=== PATIENT | female | born 1935 | race Caucasian/White ===

== ENCOUNTER 2021-12-12 09:44 | Inpatient (IN) | payer MEDICARE, SELFPAY ==
[2021-12-12] VITALS (39 sets, daily range): BP systolic 115–172; BP diastolic 63–119; PULSE 59–79; RESP 0–27; TEMP 36.1–36.4; O2SAT 91–100; BMI 29.5
--- NOTE | ~2021-12-12 | CT_ITS ---
EXAMINATION: CT abdomen pelvis wo/w con DATE: 12/16/2021 08:38 INDICATION: Right hydronephrosis. TECHNIQUE: Computed tomography (CT) of the abdomen and pelvis was performed without and with intraven ous contrast using a total of 130 mL Omnipaque-350 intravenous contrast with a double-bolus technique for simultaneous opacification of the renal parenchyma and renal collecting system. Automated exposu re control and iterative reconstruction technique were employed. The dose-length product was 1431.83 mGy-cm. COMPARISON: Ultrasound kidneys 12/15/2021, CT urogram 07/30/2011 FINDINGS: The visualized portions of the lung bases demonstrate mild atelectasis. No pleural effusion. The hear t size is normal. No pericardial effusion. There is ectasia of ascending aorta measuring 4.0 cm. Ther e are cysts in the liver measuring up to 3.5 cm. The spleen, pancreas, and adrenal glands are normal. There is mild atrophy of right kidney. There is a 1.6 cm hemorrhagic cyst in right kidney. There is a 1.8 cm rim calcified cyst in right kidney. There is severe right hydronephrosis. There is a 10 mm s tone in proximal right ureter. Right ureter is not well opacified. There are cysts in left kidney jacqui suring up to 2.2 cm. Left ureter is well opacified and is normal. The bladder is normal. There is div erticulosis of the colon without evidence of diverticulitis. There are no dilated loops of bowel. The appendix is not visualized. There are no pathologically enlarged lymph nodes. There is no free intra peritoneal fluid. There is a right inguinal hernia containing fat. There is thickening in the endomet rial complex to 13 mm. There is severe lumbar spondylosis. There is a chronic compression fracture of L2. There is severe osteoarthritis of the hips. IMPRESSION: 1. 10 mm stone in proximal right ureter with severe right hydronephrosis. Mild right kidney atrophy. 2. Thickening of the endometrial complex to 13 mm. The differential diagnosis includes endometrial hy perplasia, polyp, and carcinoma. Biopsy is recommended. Reviewed, dictated and finalized at location A. [facility] IMPRESSION: 1. 10 mm stone in proximal right ureter with severe right hydronephrosis. Mild right kidney atrophy. 2. Thickening of the endometrial complex to 13 mm. The differential diagnosis i ncludes endometrial hyperplasia, polyp, and carcinoma. Biopsy is recommended.
--- NOTE | ~2021-12-12 | US_ITS ---
EXAMINATION: US renal BI DATE: 12/15/2021 10:49 INDICATION: Recurrent urinary tract infection. TECHNIQUE: Multiple ultrasound grayscale images of the kidneys were obtained. COMPARISON: CT abdomen and pelvis 07/30/2011 FINDINGS: The right kidney measures 8.6 x 4.3 x 3.6 cm. The left kidney measures 9.3 x 5.4 x 5.0 cm. The kidney s demonstrate normal parenchymal echogenicity. There is a 2.3 cm cyst in left kidney. There is severe right hydronephrosis. The bladder is normal. IMPRESSION: 1. Severe right hydronephrosis. Mild right kidney atrophy. Reviewed, dictated and finalized at location A. [employer]
--- NOTE | ~2021-12-12 | XR_ITS ---
EXAMINATION: XR chest 1V portable 12/12/2021 10:15 INDICATION: Generalized weakness PROCEDURE: AP portable chest COMPARISON: No prior studies for comparison. FINDINGS: There is left basilar atelectasis. Shallow inspiration with crowding of the pulmonary vesse ls. The cardiomediastinal silhouette is within normal limits. There are no pleural effusions. There is no pneumothorax suspected. IMPRESSION: 1: Left basilar atelectasis. Reviewed, dictated and finalized at location A.
--- NOTE | ~2021-12-12 | CT_ITS ---
EXAMINATION: CT brain wo con DATE: 12/12/2021 10:25 INDICATION: Headache. Weakness. Altered mental status. TECHNIQUE: Computed tomography (CT) of the head was performed without intravenous contrast. The dose- length product was 681.00 mGy-cm. Automated exposure control and iterative reconstruction technique w ere employed. COMPARISON: None FINDINGS: There is generalized atrophy. There are scattered mild periventricular and subcortical whit e matter changes, most likely related to small vessel ischemic disease (microangiopathy). There are c hronic left parietal, right temporal and bilateral cerebellar infarctions. There is a chronic left th alamic infarct. Paranasal sinuses and mastoids are pneumatized. No depressed skull fractures. Midline sagittal images are unremarkable. No acute infarction, hemorrhage, mass or mass effect. No ventricul omegaly or midline shift. IMPRESSION: 1. No acute intracranial abnormality. 2: Multiple chronic infarctions involving the left parietal lobe, right temporal lobe, left thalamus and the cerebellum bilaterally. 3: Chronic age-related findings. Reviewed, dictated and finalized at location A. IMPRESSION: 1. No acute intracranial abnormality. 2: Multiple chronic infarctions involving the left parietal lobe, right tempora l lobe, left thalamus and the cerebellum bilaterally. 3: Chronic age-related findings.
--- NOTE | 2021-12-12 09:56 | ECG_ITS ---
Measurements Intervals [place] Rate: 62 P: 90 NV: 188 QRS: -44 QRSD: 132 T: 12 QT: 472 QTc: 480 Interpretive Statements SINUS RHYTHM LEFT AXIS DEVIATION RIGHT BUNDLE BRANCH BLOCK VOLTAGE CRITERIA FOR LVH BASELINE ARTIFACT- I, II, AVR, V4 ABNORMAL ECG NO PREVIOUS ECG AVAILABLE FOR COMPARISON Electronically Signed On 12-12-2021 10:35:46 CDT by Mateo Miller D.O.
--- NOTE | 2021-12-12 10:07 | PC.NURSE ---
Radiology at bedside to complete chest xray
--- NOTE | 2021-12-12 10:15 | PC.NURSE ---
Patient off unit to CT.
[2021-12-12] MEDS: SODIUM CHLORIDE 0.9% IV 2,000 ML 999 ML IV CONT (10:29)
--- NOTE | 2021-12-12 10:31 | ED.GENADULT ---
HPI - General Adult General Chief complaint: Headache Stated complaint: Headache History of Present Illness HPI narrative: Pt is an 86 y/o female, PMHx of recurrent UTI's, DVT's and migraine GHOSH, presents to ED via EMS from home with C/O left frontal and temporal headache, onset of symptoms 5 days ago after starting a new antibiotic for UTI (trimethoprim without sulfamethoxazole secondary to allergy). Pt's daughter advises she developed this headache approximately 30 minutes after her abx was given. Her headache improved marginally with time but returned after her second dose of medication. She then attempted to cut the medication into 1/4 doses and she continued to C/O headaches after receiving the medication; prompting her daughter to contact urology. She notes she was informed that she either needed to continue this medication and treat her GHOSH or she would require IV abx as inpatient. Her daughter discontinued to the antibiotics on Wednesday evening, providing no abx therapy the yesterday or today. Tracey endorses a left unilateral headache, similar to GHOSH she has experienced in the past, temporal and frontal, worse with light (photophobia) and mild nausea. She denies speech changes, focal motor weakness, falls or trauma. She has not had fevers and denies known sick contacts or COV exposures. NO modifying factors have been attempted. Related Data Allergies Allergy/AdvReac Type Severity Reaction Status Date / Time iodixanol Allergy Unknown HIVES Verified 08/20/21 14:26 ceftriaxone [From Rocephin] Allergy Rash Verified 12/12/21 15:49 Penicillins Allergy HIVES Verified 08/20/21 14:26 Sulfa (Sulfonamide Allergy RASH Verified 08/20/21 14:26 Antibiotics) Contrast Media Allergy RASH Uncoded 08/20/21 14:26 Review of Systems Review of Systems: refer to [facility] Past Medical History Medical History (Updated 12/12/21 @ 16:25 by Jeimy Cobian NP) Essential (primary) hypertension Essential tremor History of DVT (deep vein thrombosis) History of multiple cerebrovascular accidents (CVAs) jail (current) use of anticoagulants Personal history of other venous thrombosis and embolism Presbycusis, bilateral Surgical History Surgical History (Updated 12/12/21 @ 16:18 by Jeimy Cobian NP) H/O bilateral cataract extraction H/O dilation and curettage H/O ureteroscopy History of removal of pigmented skin lesion Family History Family History (Updated 12/12/21 @ 16:19 by Jeimy Cobian NP) Mother CHF (congestive heart failure), NYHA class I Cancer Social History Social History (Updated 12/12/21 @ 16:21 by Jeimy Cobian NP) Social History: The patient lives with her . She has 4 children. Her has dementia and she takes care of him. She was a former smoker. The patient is retired. Her daughter Nasima is a durable power application support technician for healthcare. She does not use any or marijuana. Code status full code Smoking packs per day: 1 Smoking cigarettes per day: 20.0 Years smoked: 5 Smoking pack-years: 5.00 Smoking status: Former smoker Second hand tobacco smoke exposure: No Alcohol intake: never Substance use: never Substance use type: does not use Has the Lack of Transportation Kept You From Medical Appointments or From Getting Medications?: No Within the Past 12 Months, Were You Worried Whether Your Food Would Run Out Before You Got Money to Buy More?: Never True What is Your Housing Situation Today?: I Have Housing Are You Worried That in the Next 2 Months, You May Not Have Your Own Housing to Live In?: No Do You Have Trouble Paying Your Heating Or Electricity Bill?: No Do You Have Trouble Paying For Medicines?: No Are You Currently Unemployed and Looking for Work?: No Highest Level of Education Completed: Grade School Do You Have Trouble With Childcare or the Care of a Family Member?: No Gender identity (if verbalized by the patient): Female Sexual Orientation (
[2021-12-12 10:54] LABS: Basophils Absolute Auto 0.1 K/mm3 (0.0-0.1); Eosinophils Absolute Auto 0.2 K/mm3 (0-0.3); Eosinophils Percent Auto 2.9 % (0-4.4); Hematocrit 48.9 % (37.0-47.0); Immature Granulocyte Absolute 0.02 K/mm3 (0.00-0.031); Immature Granulocyte Percent A 0.3 % (0-0.5); Lymphocytes Absolute Auto 1.19 K/mm3 (0.9-3.2); Lymphocytes Percent Auto 17.3 % (18.3-44.2); Mean Corpuscular HGB Conc 32.7 g/dl (32-36); Mean Corpuscular Hemoglobin 33.5 pg (26-34); Mean Corpuscular Volume 102.5 fl (80-100); Mean Platelet Volume 10.7 fl (7.4-10.4); Monocytes Absolute Auto 0.8 K/mm3 (0.1-0.6); Monocytes Percent Auto 11.1 % (2.6-8.5); Neutrophils Absolute Auto 4.6 K/mm3 (1.3-6.7); Neutrophils Percent Auto 67.4 % (45.5-73.1); Platelet Count Result 187 k/mm3 (150-375); Red Blood Count 4.77 M/mm3 (4.2-5.4); Red Cell Distribution Width 12.4 % (11.5-14.5); White Blood Count 6.9 K/mm3 (4.5-10.0)
[2021-12-12 10:58] LABS: Appearance Urine Clear (Clear); Bilirubin Urine 1+ (Negative); Blood Urine 1+ (Negative); Color Urine Dark Yellow (Yellow); Glucose Urine UA Negative (Negative); Ketones Urine 1+ mg/dL (Negative); Leukocyte Esterase Ur 1+ LEU/UL (Negative); Nitrate Urine Positive (Negative); Protein Urine 1+ mg/dL (Negative); Specific Grav Ur 1.025 (1.001-1.035); Urobilinogen Urine 0.2 mg/dL (<2.0); pH Urine 5.5 (5.0-9.0)
[2021-12-12 11:09] LABS: Alanine Aminotransferase 31 U/L (6-35); Albumin Level 3.8 g/dL (3.5-5.1); Alkaline Phosphatase 96 U/L (38-126); Anion Gap 15 mmol/L (8-16); Aspartate Amino Transferase 36 U/L (14-36); Blood Urea Nitrogen 23 mg/dL (7-17); Calcium 9.9 mg/dL (8.4-10.2); Carbon Dioxide 22 mmol/L (22-30); Chloride 105 mmol/L (98-107); Estimated CRCL calculation 37 ml/min; Estimated Glomerular Filt Rate 53; Glucose 99 mg/dL (65-110); Potassium 3.9 mmol/L (3.4-5.0); Sodium 142 mmol/L (137-145)
[2021-12-12 11:12] LABS: INR 1.6; Prothrombin Time 18.7 Seconds (11.1-14.7)
[2021-12-12] MEDS: ACETAMINOPHEN 325 MG TABLET 650 MG PO (11:18)
[2021-12-12 11:19] LABS: Troponin I < 0.012 ng/mL (0.000-0.034)
[2021-12-12 11:40] LABS: Add Urine Microscopic? YES
[2021-12-12 11:41] LABS: Squamous Epithelial Cell Urine Few /hpf (Few); WBC Clumps Urine Present /hpf; WBC Urine >75 /hpf (0-3)
[2021-12-12 11:42] LABS: Bacteria Urine 2+ /hpf
--- NOTE | 2021-12-12 12:27 | PC.NURSE ---
Per verbal order from KERRIE Zapien. Third NS liter discontinued.
[2021-12-12] MEDS: diphenhydrAMINE HCl INJ 50 MG/ML VIAL 25 MG IV PUSH (13:09)
[2021-12-12] MEDS: CIPROFLOXACIN 400 MG/D5W 200ML 200 ML 200 MG IVPB (13:33)
--- NOTE | 2021-12-12 13:36 | PM.IMHP ---
H&P: HPI History of Present Illness Date/Time: 12/12/21 13:36 Chief Complaint: Headache Narrative: This is a 86-year-old female patient who resides with her at home who has dementia. The patient has recurrent UTIs and was recently prescribed Bactrim. The patient has been decreasing the Bactrim thinking that maybe it was causing her headaches. She has been complaining of left frontal and temporal headache that started 5 days ago. The patient contributed to the antibiotic. The patient has only been taking a 4th of the dose of the Bactrim. The daughter discontinue the antibiotics on Wednesday evening and no other antibiotics were taken. No known sick contacts. Her H&H is 16.0 in 48.9 which leads me to believe that she is dehydrated. Her urine was positive for nitrates 1+ urine bilirubin 1+ ketone 1+ leukocyte esterase wbc's greater than 75. Urine bacteria 2+. The patient was started on Rocephin and had an allergic reaction the antibiotics were switched to Cipro. Head CT was read as the following 1. No acute intracranial abnormality. 2: Multiple chronic infarctions involving the left parietal lobe, right temporal lobe, left thalamus and the cerebellum bilaterally. 3:? Chronic age-related findings. The patient was given IV fluids, Tylenol Benadryl and Cipro in the emergency room. The patient is being admitted to observation status on the date of service of 12/12/2021. Review of Systems Review of Systems: See HPI All systems reviewed & are unremarkable except as noted in HPI and below Constitutional: Constitutional: Reports as per HPI and Reports no additional constitutional complaints Eyes: Eyes: Reports as per HPI and Reports no additional eye complaints ENT: Reports system reviewed and no additional complaints, except as documented and Reports Normal hearing present Cardiovascular: Cardiovascular: Reports no additional cardiovascular complaints Respiratory: Respiratory: Reports no additional respiratory complaints and Reports no additional respiratory complaints Gastrointestinal: Gastrointestinal: Reports as per HPI and Reports no additional gastrointestinal complaints Musculoskeletal: Musculoskeletal: Reports no additional musculoskeletal complaints Integumentary/Breasts: Skin/Breast: Reports system reviewed and no additional complaints, except as docu and Reports as per HPI Neurologic: Reports system reviewed and no additional complaints, except as documented, Reports as per HPI and Reports Normal hearing present Psychiatric: Psychiatric: Reports no additional psychiatric complaints and Reports as per HPI Endocrine: Endocrine: Reports no additional endocrine complaints Hematologic/Lymphatic: Hematologic/Lymphatic: Reports no additional hematologic/lymphatic complaints Allergic/Immunologic: Allergic/Immunologic: Reports no additional allergic/immunologic complaints [facility] Past Medical History Medical History (Updated 12/12/21 @ 16:25 by Jeimy Cobian NP) Essential (primary) hypertension Essential tremor History of DVT (deep vein thrombosis) History of multiple cerebrovascular accidents (CVAs) alf (current) use of anticoagulants Personal history of other venous thrombosis and embolism Presbycusis, bilateral Surgical History Surgical History (Updated 12/12/21 @ 16:18 by Jeimy Cobian NP) H/O bilateral cataract extraction H/O dilation and curettage H/O ureteroscopy History of removal of pigmented skin lesion Family History Family History (Updated 12/12/21 @ 16:19 by Jeimy Cobian NP) Mother CHF (congestive heart failure), NYHA class I Cancer Social History Social History (Updated 12/12/21 @ 16:21 by Jeimy Cobian NP) Social History: The patient lives with her . She has 4 children. Her has dementia and she takes care of him. She was a former smoker. The patient is retired. Her daughter Nasima is a durable power big data platform architect for healthcare. She does not use a
[2021-12-12] MEDS: SODIUM CHLORIDE 0.9% IV 1,000 ML 100 ML IV CONT (15:33)
--- NOTE | 2021-12-12 15:48 | ADMGEN ---
This patient, Tracey Macedo, was admitted to [facility] Surg Room 324-01. Patient/family oriented to hospital policies and general routines including ID bracelet, bed and alarms, visiting hours, pain management, procedures, bathroom and other care routines, personal items, smoking policy, room service/diet, and visiting hours. Information on how to activate the Rapid Response Team has been discussed. Patient/Family are encouraged to report perceived risks to care and to ask questions if they do not understand what they are told or what they should do.
[2021-12-12] MEDS: ENOXAPARIN 80 MG/0.8 ML SYRINGE 72 MG SUB-Q (17:35)
[2021-12-12 19:01] LABS: SARS-CoV-2 RNA PCR Negative
[2021-12-13] VITALS (8 sets, daily range): BP systolic 113–145; BP diastolic 62–84; PULSE 67–74; RESP 14–18; TEMP 36.1–36.8; O2SAT 92–97
[2021-12-13] MEDS: SODIUM CHLORIDE 0.9% IV 1,000 ML 100 ML IV CONT ×2 (02:19→12:20)
[2021-12-13] MEDS: WARFARIN (*PBKC) 2.5 MG TABLET PO ×2 (04:03→16:53)
[2021-12-13 06:43] LABS: Basophils Absolute Auto 0.1 K/mm3 (0.0-0.1); Basophils Percent Auto 1.2 % (0.2-1.2); Eosinophils Absolute Auto 0.2 K/mm3 (0-0.3); Eosinophils Percent Auto 3.1 % (0-4.4); Hematocrit 43.4 % (37.0-47.0); Hemoglobin 14.2 g/dL (12.0-15.0); Immature Granulocyte Absolute 0.01 K/mm3 (0.00-0.031); Immature Granulocyte Percent A 0.2 % (0-0.5); Lymphocytes Absolute Auto 1.51 K/mm3 (0.9-3.2); Mean Corpuscular HGB Conc 32.7 g/dl (32-36); Mean Corpuscular Hemoglobin 32.9 pg (26-34); Mean Corpuscular Volume 100.7 fl (80-100); Mean Platelet Volume 11.4 fl (7.4-10.4); Monocytes Absolute Auto 0.6 K/mm3 (0.1-0.6); Monocytes Percent Auto 10.7 % (2.6-8.5); Neutrophils Absolute Auto 3.4 K/mm3 (1.3-6.7); Neutrophils Percent Auto 58.8 % (45.5-73.1); Platelet Count Result 172 k/mm3 (150-375); Red Blood Count 4.31 M/mm3 (4.2-5.4); Red Cell Distribution Width 12.3 % (11.5-14.5); White Blood Count 5.8 K/mm3 (4.5-10.0)
[2021-12-13 06:48] LABS: INR 1.8; Prothrombin Time 20.2 Seconds (11.1-14.7)
[2021-12-13 06:53] LABS: Alanine Aminotransferase 26 U/L (6-35); Albumin Level 3.1 g/dL (3.5-5.1); Alkaline Phosphatase 79 U/L (38-126); Anion Gap 14 mmol/L (8-16); Aspartate Amino Transferase 31 U/L (14-36); Bilirubin,Total 1.6 mg/dL (0.2-1.3); Blood Urea Nitrogen 16 mg/dL (7-17); Calcium 8.7 mg/dL (8.4-10.2); Carbon Dioxide 19 mmol/L (22-30); Chloride 109 mmol/L (98-107); Estimated CRCL calculation 43 ml/min; Estimated Glomerular Filt Rate > 60; Glucose 78 mg/dL (65-110); Potassium 3.8 mmol/L (3.4-5.0); Sodium 142 mmol/L (137-145)
[2021-12-13 06:55] LABS: Lactic Acid Reflex 0.7 mmol/L (0.7-2.0)
[2021-12-13] MEDS: MELOXICAM 7.5 MG TABLET 15 MG PO (08:25)
[2021-12-13] MEDS: PROPRANOLOL HCL 40 MG TABLET PO ×2 (09:40→20:26)
--- NOTE | 2021-12-13 11:15 | WPDURCON ---
Assessment and Plan Assessment and plan (1) Recurrent UTI: Code(s): N39.0 - Urinary tract infection, site not specified Status: Acute Assessment and Plan: Would recommend treating for urinary tract infection only if she has significant symptoms and documented UTI via catheterized specimens. I doubt that she is going to be able to obtain a reliable/uncontaminated urine via voiding. Will get renal u/s to screen upper urinary tracts. Should have outpatient cystoscopy at some point, although I suspect it will be unrevealing. Urology Consult Note HPI Date Seen: 12/13/21 Requesting Physician: Efren Ruiz MD Primary Care Provider: Rios Awan MD Consult Narrative Reason for consult: Frequent UTI Narrative: Tracey Macedo is a 86 year old female who has been seen in our practice 3 times in the last several months with a suggested of recurrent urinary tract infections. Although she perceived irritable voiding, on occasion her urine cultures are negative. This admission, it seems is due to persistent headaches which she believes may less side effect from Bactrim. Patient has urinary tract infections have been difficult to treat either because of her multiple allergies or side effects ( either real or perceived ) two antibiotics. Just prior to this admission she denied significant irritable voiding and has never had hematuria. Urinalysis on this admission looks contaminated and culture results may be skewed as a result. Review of Systems Constitutional: Constitutional: Reports headache(s) Cardiovascular: Cardiovascular: Denies chest pain, Denies lightheadedness, Denies palpitations and Denies dyspnea Respiratory: Respiratory: Denies dyspnea Gastrointestinal: Gastrointestinal: Denies diarrhea, Denies nausea and Denies vomiting Genitourinary: Genitourinary: Denies hematuria and Denies dysuria Endocrine: Endocrine: Denies palpitations [facility] Past Medical History Medical History (Updated 12/13/21 @ 11:18 by Carlos Eduardo Mayers MD) Essential (primary) hypertension Essential tremor History of DVT (deep vein thrombosis) History of multiple cerebrovascular accidents (CVAs) half-way (current) use of anticoagulants Personal history of other venous thrombosis and embolism Presbycusis, bilateral Surgical History Surgical History (Updated 12/12/21 @ 16:18 by Jeimy Cobian NP) H/O bilateral cataract extraction H/O dilation and curettage H/O ureteroscopy History of removal of pigmented skin lesion Family History Family History (Updated 12/12/21 @ 16:19 by Jeimy Cobian NP) Mother CHF (congestive heart failure), NYHA class I Cancer Social History Social History (Updated 12/12/21 @ 16:21 by Jeimy Cobian NP) Social History: The patient lives with her . She has 4 children. Her has dementia and she takes care of him. She was a former smoker. The patient is retired. Her daughter Nasima is a durable power assistant attorney general for healthcare. She does not use any or marijuana. Code status full code Smoking packs per day: 1 Smoking cigarettes per day: 20.0 Years smoked: 5 Smoking pack-years: 5.00 Smoking status: Former smoker Second hand tobacco smoke exposure: No Alcohol intake: never Substance use: never Substance use type: does not use Has the Lack of Transportation Kept You From Medical Appointments or From Getting Medications?: No Within the Past 12 Months, Were You Worried Whether Your Food Would Run Out Before You Got Money to Buy More?: Never True What is Your Housing Situation Today?: I Have Housing Are You Worried That in the Next 2 Months, You May Not Have Your Own Housing to Live In?: No Do You Have Trouble Paying Your Heating Or Electricity Bill?: No Do You Have Trouble Paying For Medicines?: No Are You Currently Unemployed and Looking for Work?: No Highest Level of Education Completed: Grade School Do You Have Troub
--- NOTE | 2021-12-13 16:43 | PM.IMPN ---
Progress Note: A&P Assessment and Plan (1) UTI (urinary tract infection): Code(s): N39.0 - Urinary tract infection, site not specified Status: Acute Assessment and Plan: The patient is allergic to ceftriaxone and had allergic reaction in the emergency room. She was given Benadryl for the allergic reaction. -the patient had been on Bactrim at home and felt that the Bactrim was giving her headaches so she discontinued it. -I have started on the Levaquin. -urine and blood cultures are pending. -consult Urology for frequent UTIs. (2) Essential tremor: Code(s): G25.0 - Essential tremor Status: Acute Assessment and Plan: -the patient is on propranolol for this continue with the propranolol for blood pressure levels. (3) History of DVT (deep vein thrombosis): Code(s): Z86.718 - Personal history of other venous thrombosis and embolism Status: Acute Assessment and Plan: -the patient is on Coumadin. Patient's INR is only 1.6 which is subtherapeutic. received a dose of Lovenox 12/12/2021 . Continue to monitor PT INR Plan Headaches left frontal and temporal since start of new antibiotic for UTI trimethoprim without sulfamethoxazole. Headache started 30 minutes after the antibiotic was given. Improved marginally with time but returned after 2nd dose of medication. Antibiotic discontinued on Wednesday. Headache associated with photophobia and mild nausea suspected migraine related probably exacerbated by new antibiotic. Antibiotic discontinued. Switch to Levaquin which he tolerated well. Her CT head with no acute findings. History of CVAs. Patient's CT of the brain on admission shows multiple chronic infarctions involving the left parietal lobe, right temporal lobe, left thalamus and the cerebellum. Migraine headache History of DVT on chronic anticoagulation Hypertension Essential tremor UTI antibiotic change Levaquin which she tolerated well urine culture growing Gram-negative bacilli yet to be identified History of recurrent UTI urology consulted DVT prophylaxis on warfarin which interacts current Levaquin monitor INR daily Code status full code Subjective Date/time seen: 12/13/21 16:43 Interval history: HPI:This is a 86-year-old female patient who resides with her at home who? has dementia.? The patient has recurrent UTIs and was recently prescribed Bactrim.? The patient has been decreasing the Bactrim thinking that maybe it was causing her headaches.? She has been complaining of left frontal and temporal headache that started 5 days ago.? The patient contributed to the antibiotic.? The patient has only been taking a 4th of the dose of the Bactrim.? The daughter discontinue the antibiotics on Wednesday evening and no other antibiotics were taken.? No known sick contacts.? Her H&H is 16.0 in 48.9 which leads me to believe that she is dehydrated.? Her urine was positive for nitrates 1+ urine bilirubin 1+ ketone 1+ leukocyte esterase wbc's greater than 75.? Urine bacteria 2+.? The patient was started on Rocephin and had an allergic reaction the antibiotics were switched to Cipro.? Head CT was read as the following 1. No acute intracranial abnormality. 2: Multiple chronic infarctions involving the left parietal lobe, right temporal lobe, left thalamus and the cerebellum bilaterally. 3:? Chronic age-related findings.? The patient was given IV fluids, Tylenol Benadryl and Cipro in the emergency room.? The patient is being admitted to observation status on the date of service of 12/12/2021. 12/13/2021: Taking an afternoon nap. Reports no chest pain or shortness of breath abdominal pain nausea vomiting. Review of Systems Review of Systems: All systems reviewed & are unremarkable except as noted in HPI and below Exam Narrative: GENERAL: The patient is well developed, not in acute distress HEENT: Nonicteric sclerae, PERRLA, EOMI. Oropharynx clear. Moist mucous membranes
--- NOTE | 2021-12-14 01:23 | PC.NURSE ---
Daylight Savings Time For Daylight Savings Time Ending in the Fall - Clocks are moved back. For Daylight Savings Time Beginning in the Spring - Clocks are moved ahead. For [facility], the time of change occurs at 0200 hrs. Time is taken from the senior sql server database developer. This entry on the patient's chart recognizes the change in time reflected during documentation. Example: 2 entries for vital signs may be charted for 0200 hrs.
[2021-12-14] MEDS: SODIUM CHLORIDE 0.9% IV 1,000 ML 100 ML IV CONT ×2 (02:23→12:26)
--- NOTE | 2021-12-14 06:26 | PC.NURSE ---
Pt is confused AO x1. Refusing all type of nursing care at the moment
[2021-12-14 08:11] VITALS: PULSE 60
[2021-12-14 08:11] LABS: Basophils Absolute Auto 0.1 K/mm3 (0.0-0.1); Basophils Percent Auto 0.9 % (0.2-1.2); Eosinophils Absolute Auto 0.3 K/mm3 (0-0.3); Eosinophils Percent Auto 3.9 % (0-4.4); Hematocrit 47.4 % (37.0-47.0); Hemoglobin 15.7 g/dL (12.0-15.0); Immature Granulocyte Absolute 0.01 K/mm3 (0.00-0.031); Immature Granulocyte Percent A 0.2 % (0-0.5); Lymphocytes Absolute Auto 1.03 K/mm3 (0.9-3.2); Lymphocytes Percent Auto 16.2 % (18.3-44.2); Mean Corpuscular HGB Conc 33.1 g/dl (32-36); Mean Corpuscular Hemoglobin 32.8 pg (26-34); Mean Platelet Volume 11.2 fl (7.4-10.4); Monocytes Absolute Auto 0.6 K/mm3 (0.1-0.6); Monocytes Percent Auto 8.7 % (2.6-8.5); Neutrophils Absolute Auto 4.5 K/mm3 (1.3-6.7); Neutrophils Percent Auto 70.1 % (45.5-73.1); Platelet Count Result 195 k/mm3 (150-375); Red Blood Count 4.79 M/mm3 (4.2-5.4); White Blood Count 6.4 K/mm3 (4.5-10.0)
[2021-12-14] MEDS: PROPRANOLOL HCL 40 MG TABLET PO ×2 (08:11→20:53)
[2021-12-14] MEDS: MELOXICAM 7.5 MG TABLET 15 MG PO (08:13)
[2021-12-14 08:34] LABS: Alanine Aminotransferase 30 U/L (6-35); Albumin Level 3.9 g/dL (3.5-5.1); Alkaline Phosphatase 84 U/L (38-126); Anion Gap 12 mmol/L (8-16); Aspartate Amino Transferase 45 U/L (14-36); Bilirubin,Total 2.1 mg/dL (0.2-1.3); Blood Urea Nitrogen 9 mg/dL (7-17); Calcium 9.4 mg/dL (8.4-10.2); Carbon Dioxide 23 mmol/L (22-30); Chloride 107 mmol/L (98-107); Estimated CRCL calculation 48 ml/min; Estimated Glomerular Filt Rate > 60; Glucose 99 mg/dL (65-110); Magnesium 1.9 mg/dL (1.6-2.3); Sodium 142 mmol/L (137-145)
[2021-12-14] MEDS: ACETAMINOPHEN 325 MG TABLET 650 MG PO (10:27)
--- NOTE | 2021-12-14 13:42 | PM.IMPN ---
Progress Note: A&P Assessment and Plan (1) UTI (urinary tract infection): Code(s): N39.0 - Urinary tract infection, site not specified Status: Acute (2) Essential tremor: Code(s): G25.0 - Essential tremor Status: Acute (3) History of DVT (deep vein thrombosis): Code(s): Z86.718 - Personal history of other venous thrombosis and embolism Status: Acute Plan Headaches left frontal and temporal since start of new antibiotic for UTI trimethoprim without sulfamethoxazole. Headache started 30 minutes after the antibiotic was given. Improved marginally with time but returned after 2nd dose of medication. Antibiotic discontinued on Wednesday. Headache associated with photophobia and mild nausea suspected migraine related probably exacerbated by new antibiotic. Antibiotic discontinued. Switch to Levaquin which he tolerated well. Her CT head with no acute findings. History of CVAs. Patient's CT of the brain on admission shows multiple chronic infarctions involving the left parietal lobe, right temporal lobe, left thalamus and the cerebellum. Migraine headache History of DVT on chronic anticoagulation Hypertension Essential tremor UTI antibiotic change Levaquin which she tolerated well urine culture growing Gram-negative bacilli which came back as E coli resistant to levofloxacin.discussed with the daughter, she has tolerated cefdinir int he past. issue with ceftraixone as well. History of recurrent UTI urology consulted DVT prophylaxis on warfarin which interacts current Levaquin monitor INR daily Code status full code Subjective Date/time seen: 12/14/21 13:42 Interval history: HPI:This is a 86-year-old female patient who resides with her at home who? has dementia.? The patient has recurrent UTIs and was recently prescribed Bactrim.? The patient has been decreasing the Bactrim thinking that maybe it was causing her headaches.? She has been complaining of left frontal and temporal headache that started 5 days ago.? The patient contributed to the antibiotic.? The patient has only been taking a 4th of the dose of the Bactrim.? The daughter discontinue the antibiotics on Wednesday evening and no other antibiotics were taken.? No known sick contacts.? Her H&H is 16.0 in 48.9 which leads me to believe that she is dehydrated.? Her urine was positive for nitrates 1+ urine bilirubin 1+ ketone 1+ leukocyte esterase wbc's greater than 75.? Urine bacteria 2+.? The patient was started on Rocephin and had an allergic reaction the antibiotics were switched to Cipro.? Head CT was read as the following 1. No acute intracranial abnormality. 2: Multiple chronic infarctions involving the left parietal lobe, right temporal lobe, left thalamus and the cerebellum bilaterally. 3:? Chronic age-related findings.? The patient was given IV fluids, Tylenol Benadryl and Cipro in the emergency room.? The patient is being admitted to observation status on the date of service of 12/12/2021. 12/13/2021: Taking an afternoon nap. Reports no chest pain or shortness of breath abdominal pain nausea vomiting. 12/14/2021: No overnight events. Feels tired. No other specific complaints. Denies any abdominal pain nausea vomiting. Review of Systems Review of Systems: All systems reviewed & are unremarkable except as noted in HPI and below Exam Narrative: GENERAL: The patient is Thin built tired looking, not in acute distress HEENT: Nonicteric sclerae, PERRLA, EOMI. Oropharynx clear. Moist mucous membranes. Conjunctivae appear well perfused. CHEST: Chest wall is nontender. HEART: Regular rate and rhythm without murmur, rubs, or gallops LUNGS: Clear to auscultation bilaterally. no respiratory distress ABDOMEN: Soft, positive bowel sounds, non-tender, no organomegaly. SKIN: No rash, no excessive bruising, petechiae, or purpura. NEUROLOGIC: Cranial nerves II-XII intact, alert and oriented x 3, no gross motor deficits EXTREMITIES:
[2021-12-14 14:00] VITALS: BP 140/85; PULSE 60; RESP 18; TEMP 36.8; O2SAT 96
[2021-12-14 15:22] LABS: INR 1.9; Prothrombin Time 20.8 Seconds (11.1-14.7)
[2021-12-14] MEDS: WARFARIN (*PBKC) 2.5 MG TABLET PO (16:22)
[2021-12-14 20:53] VITALS: PULSE 70
[2021-12-14] MEDS: CEFDINIR 300 MG CAPSULE PO (20:54)
[2021-12-14 21:42] VITALS: BP 144/75; PULSE 61; RESP 22; TEMP 36.5; O2SAT 94
[2021-12-15 05:56] VITALS: BP 149/84; PULSE 61; RESP 20; TEMP 36.6; O2SAT 95
[2021-12-15 06:25] LABS: Basophils Absolute Auto 0.1 K/mm3 (0.0-0.1); Basophils Percent Auto 0.8 % (0.2-1.2); Eosinophils Absolute Auto 0.3 K/mm3 (0-0.3); Eosinophils Percent Auto 5.5 % (0-4.4); Hematocrit 44.2 % (37.0-47.0); Hemoglobin 14.7 g/dL (12.0-15.0); Immature Granulocyte Absolute 0.01 K/mm3 (0.00-0.031); Immature Granulocyte Percent A 0.2 % (0-0.5); Lymphocytes Absolute Auto 1.37 K/mm3 (0.9-3.2); Mean Corpuscular HGB Conc 33.3 g/dl (32-36); Mean Corpuscular Volume 99.3 fl (80-100); Mean Platelet Volume 11.5 fl (7.4-10.4); Monocytes Absolute Auto 0.7 K/mm3 (0.1-0.6); Monocytes Percent Auto 11.1 % (2.6-8.5); Neutrophils Absolute Auto 3.5 K/mm3 (1.3-6.7); Neutrophils Percent Auto 59.4 % (45.5-73.1); Platelet Count Result 174 k/mm3 (150-375); Red Blood Count 4.45 M/mm3 (4.2-5.4); Red Cell Distribution Width 12.1 % (11.5-14.5)
[2021-12-15 07:42] LABS: Alanine Aminotransferase 31 U/L (6-35); Albumin Level 3.5 g/dL (3.5-5.1); Alkaline Phosphatase 88 U/L (38-126); Anion Gap 8 mmol/L (8-16); Aspartate Amino Transferase 39 U/L (14-36); Bilirubin,Total 1.7 mg/dL (0.2-1.3); Blood Urea Nitrogen 10 mg/dL (7-17); Calcium 9.3 mg/dL (8.4-10.2); Carbon Dioxide 26 mmol/L (22-30); Chloride 107 mmol/L (98-107); Estimated CRCL calculation 38 ml/min; Estimated Glomerular Filt Rate 60; Glucose 92 mg/dL (65-110); Magnesium 1.7 mg/dL (1.6-2.3); Potassium 4.1 mmol/L (3.4-5.0); Sodium 141 mmol/L (137-145)
[2021-12-15] MEDS: ACETAMINOPHEN 325 MG TABLET 650 MG PO (09:33)
[2021-12-15] MEDS: MELOXICAM 7.5 MG TABLET 15 MG PO (09:33)
[2021-12-15 12:13] VITALS: PULSE 64
[2021-12-15] MEDS: PROPRANOLOL HCL 40 MG TABLET PO ×2 (12:13→22:21)
[2021-12-15] MEDS: CEFDINIR 300 MG CAPSULE PO ×2 (12:13→22:21)
--- NOTE | 2021-12-15 12:45 | PM.IMPN ---
Progress Note: A&P Assessment and Plan (1) UTI (urinary tract infection): Code(s): N39.0 - Urinary tract infection, site not specified Status: Acute (2) Essential tremor: Code(s): G25.0 - Essential tremor Status: Acute (3) History of DVT (deep vein thrombosis): Code(s): Z86.718 - Personal history of other venous thrombosis and embolism Status: Acute Plan Headaches left frontal and temporal since start of new antibiotic for UTI trimethoprim without sulfamethoxazole. Headache started 30 minutes after the antibiotic was given. Improved marginally with time but returned after 2nd dose of medication. Antibiotic discontinued on Wednesday. Headache associated with photophobia and mild nausea suspected migraine related probably exacerbated by new antibiotic. Antibiotic discontinued. Switch to Levaquin which he tolerated well. Her CT head with no acute findings. History of CVAs. Patient's CT of the brain on admission shows multiple chronic infarctions involving the left parietal lobe, right temporal lobe, left thalamus and the cerebellum. Migraine headache History of DVT on chronic anticoagulation Hypertension Essential tremor UTI antibiotic change Levaquin which she tolerated well urine culture growing Gram-negative bacilli which came back as E coli resistant to levofloxacin.discussed with the daughter, she has tolerated cefdinir int he past. issue with ceftraixone as well. Severe right hydronephrosis detected in renal ultrasound. Discussed with urologist will perform CT urogram however patient has allergy to dye will need to do premedication. This was discussed with the daughter and okay for premedication. Premedication to start today and will do CT urogram in a.m. History of recurrent UTI urology consulted DVT prophylaxis on warfarin which interacts current Levaquin monitor INR daily Code status full code Subjective Date/time seen: 12/15/21 12:45 Interval history: HPI:This is a 86-year-old female patient who resides with her at home who? has dementia.? The patient has recurrent UTIs and was recently prescribed Bactrim.? The patient has been decreasing the Bactrim thinking that maybe it was causing her headaches.? She has been complaining of left frontal and temporal headache that started 5 days ago.? The patient contributed to the antibiotic.? The patient has only been taking a 4th of the dose of the Bactrim.? The daughter discontinue the antibiotics on Wednesday evening and no other antibiotics were taken.? No known sick contacts.? Her H&H is 16.0 in 48.9 which leads me to believe that she is dehydrated.? Her urine was positive for nitrates 1+ urine bilirubin 1+ ketone 1+ leukocyte esterase wbc's greater than 75.? Urine bacteria 2+.? The patient was started on Rocephin and had an allergic reaction the antibiotics were switched to Cipro.? Head CT was read as the following 1. No acute intracranial abnormality. 2: Multiple chronic infarctions involving the left parietal lobe, right temporal lobe, left thalamus and the cerebellum bilaterally. 3:? Chronic age-related findings.? The patient was given IV fluids, Tylenol Benadryl and Cipro in the emergency room.? The patient is being admitted to observation status on the date of service of 12/12/2021. 12/13/2021: Taking an afternoon nap. Reports no chest pain or shortness of breath abdominal pain nausea vomiting. 12/14/2021: No overnight events. Feels tired. No other specific complaints. Denies any abdominal pain nausea vomiting. 12/15/2021 no new complaints. No overnight events. Discussed with the daughter. Renal ultrasound finding discussed with the urologist. Review of Systems Review of Systems: All systems reviewed & are unremarkable except as noted in HPI and below Exam Narrative: GENERAL: The patient is Thin built tired looking, not in acute distress HEENT: Nonicteric sclerae, PERRLA, EOMI. Oropharynx clear. Moist mucous
[2021-12-15 13:41] VITALS: BP 121/64; PULSE 68; RESP 20; TEMP 36.4; O2SAT 95
--- NOTE | 2021-12-15 14:19 | PCOTNOTE ---
Attempted to see patient twice this date. First attempt, RN stated patient was just returned to bed due to dizziness while up in chair. Attempted to see patient this pm, however physical therapy was getting ready to see patient.
[2021-12-15 14:55] LABS: INR 1.8; Prothrombin Time 20.3 Seconds (11.1-14.7)
--- NOTE | 2021-12-15 16:46 | WPDUROPN2 ---
Progress Note: A&P Assessment and Plan (1) Recurrent UTI: Code(s): N39.0 - Urinary tract infection, site not specified Status: Acute (2) Hydronephrosis, right: Code(s): N13.30 - Unspecified hydronephrosis Status: Acute Assessment and Plan: Pt. feeling well but renal u/s shows right hydronephrosis. Will plan steroid-prepped CT-abd/pelvis w/wo contrast tomorrow. Subjective Subjective Date/Time Seen: 12/15/21 16:46 Comfortable, no complaints Objective Data Vital Signs Vital Signs: Vital Signs - 24 hr 12/14/21 20:00 12/14/21 20:53 12/14/21 21:42 Temperature 97.7 F Pulse Rate 70 61 Respiratory Rate 22 H Blood Pressure 144/75 H Pulse Oximetry 94 Oxygen Delivery Room Air 12/15/21 05:56 12/15/21 12:13 12/15/21 13:41 Temperature 97.9 F 97.6 F Pulse Rate 61 64 68 Respiratory Rate 20 20 Blood Pressure 149/84 H 121/64 Pulse Oximetry 95 95 Oxygen Delivery 12/15/21 09:30 Temperature Pulse Rate Respiratory Rate Blood Pressure Pulse Oximetry Oxygen Delivery Room Air Intake/Output Intake/Output: Intake & Output 12/13/21 12/14/21 12/14/21 12/15/21 00:59 00:59 23:59 23:59 Intake Total 140 Output Total Balance 140 Meds/Results Medications: Active Medications Generic Name Dose Route Start Last Admin Trade Name Freq PRN Reason Stop Dose Admin Acetaminophen 650 mg 12/14/21 10:16 12/15/21 09:33 Acetaminophen 325 Mg Tablet PO 650 mg Q6H PRN Administration Mild Pain (1-3) or Fever Cefdinir 300 mg 12/14/21 21:00 12/15/21 12:13 Cefdinir 300 Mg Capsule PO 300 mg Q12HR ANKUR Administration Meloxicam 15 mg 12/13/21 08:00 12/15/21 09:33 Meloxicam 7.5 Mg Tablet PO 15 mg 0800 ANKUR Administration Propranolol HCl 40 mg 12/13/21 09:00 12/15/21 12:13 Propranolol Hcl 40 Mg Tablet PO 40 mg Q12HR ANKUR Administration Warfarin Sodium 2.5 mg 12/13/21 02:50 12/14/21 16:22 Warfarin (*Pbkc) 2.5 Mg Tablet PO 2.5 mg DAILY@1700 ANKUR Administration Radiology Results: ITS Impressions Chest X-Ray 12/12/21 10:15 IMPRESSION: 1: Left basilar atelectasis. Head CT 12/12/21 10:32 IMPRESSION: 1. No acute intracranial abnormality. 2: Multiple chronic infarctions involving the left parietal lobe, right temporal lobe, left thalamus and the cerebellum bilaterally. 3: Chronic age-related findings. Renal Ultrasound 12/15/21 10:54 IMPRESSION: 1. Severe right hydronephrosis. Mild right kidney atrophy. Labs Labs: Laboratory Results - last 24 hr 12/15/21 12/15/21 12/15/21 06:00 07:17 14:22 WBC 6.0 RBC 4.45 Hgb 14.7 Hct 44.2 MCV 99.3 MCH 33.0 MCHC 33.3 RDW 12.1 Plt Count 174 MPV 11.5 H Immature Gran % (Auto) 0.2 Neut % (Auto) 59.4 Lymph % (Auto) 23.0 [place] % (Auto) 11.1 H Eos % (Auto) 5.5 H Baso % (Auto) 0.8 Lymph # (Auto) 1.37 [place] # (Auto) 0.7 H Eos # (Auto) 0.3 Baso # (Auto) 0.1 Abs Immat Gran (auto) 0.01 Absolute Neuts (auto) 3.5 Absolute Nucleated RBC 0.0 Nucleated RBC % 0.0 PT 20.3 H INR 1.8 Sodium 141 Potassium 4.1 Chloride 107 Carbon Dioxide 26 Anion Gap 8 BUN 10 Creatinine 0.90 Estim Creat Clear Calc 38 Estimated GFR 60 Glucose 92 Calcium 9.3 Magnesium 1.7 Total Bilirubin 1.7 H AST 39 H ALT 31 Alkaline Phosphatase 88 Total Protein 6.0 L Albumin 3.5
[2021-12-15] MEDS: WARFARIN (*PBKC) 2.5 MG TABLET PO (17:43)
[2021-12-15] MEDS: predniSONE 40 MG, predniSONE 10 MG 50 MG PO (19:26)
[2021-12-15 20:00] VITALS: PULSE 65; RESP 14; O2SAT 95
[2021-12-15 22:00] VITALS: BP 127/79; PULSE 65; RESP 14; TEMP 36.4; O2SAT 95
[2021-12-15 22:21] VITALS: PULSE 65
[2021-12-16] VITALS (8 sets, daily range): BP systolic 138–144; BP diastolic 80–87; PULSE 63–76; RESP 14–18; TEMP 35.9–36.3; O2SAT 90–94
[2021-12-16] MEDS: predniSONE 40 MG, predniSONE 10 MG 50 MG PO ×2 (00:39→06:59)
[2021-12-16 06:13] LABS: Basophils Percent Auto 0.2 % (0.2-1.2); Hematocrit 46.4 % (37.0-47.0); Hemoglobin 15.9 g/dL (12.0-15.0); Immature Granulocyte Absolute 0.01 K/mm3 (0.00-0.031); Immature Granulocyte Percent A 0.2 % (0-0.5); Lymphocytes Absolute Auto 0.57 K/mm3 (0.9-3.2); Lymphocytes Percent Auto 10.6 % (18.3-44.2); Mean Corpuscular HGB Conc 34.3 g/dl (32-36); Mean Corpuscular Hemoglobin 33.8 pg (26-34); Mean Corpuscular Volume 98.7 fl (80-100); Mean Platelet Volume 10.9 fl (7.4-10.4); Monocytes Percent Auto 0.6 % (2.6-8.5); Neutrophils Absolute Auto 4.8 K/mm3 (1.3-6.7); Neutrophils Percent Auto 88.4 % (45.5-73.1); Platelet Count Result 191 k/mm3 (150-375); Red Cell Distribution Width 12.1 % (11.5-14.5); White Blood Count 5.4 K/mm3 (4.5-10.0)
[2021-12-16 06:24] LABS: Alanine Aminotransferase 32 U/L (6-35); Albumin Level 3.9 g/dL (3.5-5.1); Alkaline Phosphatase 104 U/L (38-126); Anion Gap 13 mmol/L (8-16); Aspartate Amino Transferase 38 U/L (14-36); Bilirubin,Total 1.2 mg/dL (0.2-1.3); Blood Urea Nitrogen 11 mg/dL (7-17); Calcium 9.6 mg/dL (8.4-10.2); Carbon Dioxide 24 mmol/L (22-30); Chloride 105 mmol/L (98-107); Estimated CRCL calculation 43 ml/min; Estimated Glomerular Filt Rate > 60; Glucose 166 mg/dL (65-110); Magnesium 1.9 mg/dL (1.6-2.3); Potassium 3.9 mmol/L (3.4-5.0); Sodium 142 mmol/L (137-145)
[2021-12-16] MEDS: diphenhydrAMINE HCl INJ 50 MG/ML VIAL IV PUSH (06:58)
[2021-12-16] MEDS: diphenhydrAMINE HCl CAP 25 MG CAPSULE 50 MG PO (06:59)
[2021-12-16] MEDS: PROPRANOLOL HCL 40 MG TABLET PO ×2 (08:56→21:18)
[2021-12-16] MEDS: MELOXICAM 7.5 MG TABLET 15 MG PO (08:56)
[2021-12-16] MEDS: CEFDINIR 300 MG CAPSULE PO ×2 (08:56→21:18)
[2021-12-16 09:41] LABS: Prothrombin Time 22.2 Seconds (11.1-14.7)
--- NOTE | 2021-12-16 13:22 | WPDUROPN2 ---
Progress Note: A&P Assessment and Plan (1) Hydronephrosis, right: Code(s): N13.30 - Unspecified hydronephrosis Status: Acute (2) Right renal stone: Code(s): N20.0 - Calculus of kidney Status: Acute Assessment and Plan: CT-urogram shows obstructing 10mm right UPJ stone Will arrange right ESWL as outpatient. I'll arrange stopping Coumadin with PCP. Subjective Subjective Date/Time Seen: 12/16/21 13:22 Comfortable, no c/o Review of Systems Cardiovascular: Cardiovascular: Denies chest pain, Denies lightheadedness, Denies palpitations and Denies dyspnea Respiratory: Respiratory: Denies dyspnea Gastrointestinal: Gastrointestinal: Denies diarrhea, Denies nausea and Denies vomiting Genitourinary: Genitourinary: Denies hematuria and Denies dysuria Endocrine: Endocrine: Denies palpitations Exam Const: General: no acute distress Resp: Effort & Inspection: normal respiratory effort GI: Inspection: non-distended GI Palp: No abdominal tenderness and No Guarding due to palpation present (GI) Auscultation: normal bowel sounds Objective Data Vital Signs Vital Signs: Vital Signs - 24 hr 12/15/21 13:41 12/15/21 22:00 12/15/21 22:21 Temperature 97.6 F 97.5 F L Pulse Rate 68 65 65 Respiratory Rate 20 14 Blood Pressure 121/64 127/79 Pulse Oximetry 95 95 Oxygen Delivery Oxygen Flow Rate 12/15/21 20:00 12/16/21 06:00 12/16/21 08:56 Temperature 97.3 F L Pulse Rate 65 63 70 Respiratory Rate 14 14 Blood Pressure 144/87 H Pulse Oximetry 95 94 Oxygen Delivery Room Air Oxygen Flow Rate 12/16/21 11:12 12/16/21 11:17 Temperature Pulse Rate Respiratory Rate Blood Pressure Pulse Oximetry 90 92 Oxygen Delivery Room Air Nasal Cannula Oxygen Flow Rate 2 Intake/Output Intake/Output: Intake & Output 12/14/21 12/14/21 12/15/21 12/16/21 00:59 23:59 23:59 23:59 Intake Total 880 740 Output Total 350 Balance 530 740 Meds/Results Medications: Active Medications Generic Name Dose Route Start Last Admin Trade Name Freq PRN Reason Stop Dose Admin Acetaminophen 650 mg 12/14/21 10:16 12/15/21 09:33 Acetaminophen 325 Mg Tablet PO 650 mg Q6H PRN Administration Mild Pain (1-3) or Fever Cefdinir 300 mg 12/14/21 21:00 12/16/21 08:56 Cefdinir 300 Mg Capsule PO 300 mg Q12HR ANKUR Administration Meloxicam 15 mg 12/13/21 08:00 12/16/21 08:56 Meloxicam 7.5 Mg Tablet PO 15 mg 0800 ANKUR Administration Propranolol HCl 40 mg 12/13/21 09:00 12/16/21 08:56 Propranolol Hcl 40 Mg Tablet PO 40 mg Q12HR ANKUR Administration Warfarin Sodium 2.5 mg 12/13/21 02:50 12/15/21 17:43 Warfarin (*Pbkc) 2.5 Mg Tablet PO 2.5 mg DAILY@1700 ANKUR Administration Radiology Results: ITS Impressions Chest X-Ray 12/12/21 10:15 IMPRESSION: 1: Left basilar atelectasis. Head CT 12/12/21 10:32 IMPRESSION: 1. No acute intracranial abnormality. 2: Multiple chronic infarctions involving the left parietal lobe, right temporal lobe, left thalamus and the cerebellum bilaterally. 3: Chronic age-related findings. Renal Ultrasound 12/15/21 10:54 IMPRESSION: 1. Severe right hydronephrosis. Mild right kidney atrophy. Abdomen/Pelvis CT 12/16/21 09:00 IMPRESSION: 1. 10 mm stone in proximal right ureter with severe right hydronephrosis. Mild right kidney atrophy. 2. Thickening of the endometrial complex to 13 mm. The differential diagnosis includes endometrial hyperplasia, polyp, and carcinoma. Biopsy is recommended. Labs Labs: Laboratory Results - last 24 hr 12/15/21 12/16/21 12/16/21 14:22 06:04 06:04 WBC 5.4 RBC 4.70 Hgb 15.9 H Hct 46.4 MCV 98.7 MCH 33.8 MCHC 34.3 RDW 12.1 Plt Count 191 MPV 10.9 H Immature Gran % (Auto) 0.2 Neut % (Auto) 88.4 H Lymph % (Auto) 10.6 L [place] % (Auto) 0.6 L Eos % (Auto) 0.0 Baso % (Auto)
--- NOTE | 2021-12-16 14:35 | PM.IMPN ---
Progress Note: A&P Assessment and Plan (1) UTI (urinary tract infection): Code(s): N39.0 - Urinary tract infection, site not specified Status: Acute (2) Essential tremor: Code(s): G25.0 - Essential tremor Status: Acute (3) History of DVT (deep vein thrombosis): Code(s): Z86.718 - Personal history of other venous thrombosis and embolism Status: Acute Plan Headaches left frontal and temporal since start of new antibiotic for UTI trimethoprim without sulfamethoxazole. Headache started 30 minutes after the antibiotic was given. Improved marginally with time but returned after 2nd dose of medication. Antibiotic discontinued on Wednesday. Headache associated with photophobia and mild nausea suspected migraine related probably exacerbated by new antibiotic. Antibiotic discontinued. Switch to Levaquin which he tolerated well. Her CT head with no acute findings. History of CVAs. Patient's CT of the brain on admission shows multiple chronic infarctions involving the left parietal lobe, right temporal lobe, left thalamus and the cerebellum. Migraine headache History of DVT on chronic anticoagulation Hypertension Essential tremor UTI antibiotic change Levaquin which she tolerated well urine culture growing Gram-negative bacilli which came back as E coli resistant to levofloxacin.discussed with the daughter, she has tolerated cefdinir int he past. issue with ceftraixone as well. Severe right hydronephrosis detected in renal ultrasound. Discussed with urologist will perform CT urogram however patient has allergy to dye will need to do premedication. This was discussed with the daughter and okay for premedication. Premedication to start today and will do CT urogram in a.m. status post CT urogram with right upper ureter stone with severe right hydronephrosis noted. Await Urology evaluation History of recurrent UTI urology consulted DVT prophylaxis on warfarin which interacts current Levaquin monitor INR daily Code status full code Subjective Date/time seen: 12/16/21 14:35 Interval history: HPI:This is a 86-year-old female patient who resides with her at home who? has dementia.? The patient has recurrent UTIs and was recently prescribed Bactrim.? The patient has been decreasing the Bactrim thinking that maybe it was causing her headaches.? She has been complaining of left frontal and temporal headache that started 5 days ago.? The patient contributed to the antibiotic.? The patient has only been taking a 4th of the dose of the Bactrim.? The daughter discontinue the antibiotics on Wednesday evening and no other antibiotics were taken.? No known sick contacts.? Her H&H is 16.0 in 48.9 which leads me to believe that she is dehydrated.? Her urine was positive for nitrates 1+ urine bilirubin 1+ ketone 1+ leukocyte esterase wbc's greater than 75.? Urine bacteria 2+.? The patient was started on Rocephin and had an allergic reaction the antibiotics were switched to Cipro.? Head CT was read as the following 1. No acute intracranial abnormality. 2: Multiple chronic infarctions involving the left parietal lobe, right temporal lobe, left thalamus and the cerebellum bilaterally. 3:? Chronic age-related findings.? The patient was given IV fluids, Tylenol Benadryl and Cipro in the emergency room.? The patient is being admitted to observation status on the date of service of 12/12/2021. 12/13/2021: Taking an afternoon nap. Reports no chest pain or shortness of breath abdominal pain nausea vomiting. 12/14/2021: No overnight events. Feels tired. No other specific complaints. Denies any abdominal pain nausea vomiting. 12/15/2021 no new complaints. No overnight events. Discussed with the daughter. Renal ultrasound finding discussed with the urologist. 12/16/2021 working the therapy this morning. Discussed with the daughter at bedside. Seen earlier today. No Other complaints report Review of Systems Revie
[2021-12-16] MEDS: WARFARIN (*PBKC) 2.5 MG TABLET PO (16:47)
[2021-12-16] MEDS: polyethylene glycoL 3350 17 GM POWD.PACK PO (21:24)
[2021-12-17 06:00] VITALS: BP 181/78; PULSE 59; RESP 18; TEMP 36.2; O2SAT 96
[2021-12-17 06:46] LABS: Prothrombin Time 22.2 Seconds (11.1-14.7)
[2021-12-17] MEDS: CEFDINIR 300 MG CAPSULE PO (08:38)
[2021-12-17] MEDS: polyethylene glycoL 3350 17 GM POWD.PACK PO (08:39)
[2021-12-17] MEDS: MELOXICAM 7.5 MG TABLET 15 MG PO (08:39)
[2021-12-17 08:40] VITALS: PULSE 67
[2021-12-17] MEDS: PROPRANOLOL HCL 40 MG TABLET PO (08:40)
[2021-12-17 09:01] VITALS: O2SAT 91
--- NOTE | 2021-12-17 12:05 | PM.DS ---
DS: Admitting Diagnosis Discharge Date 12/17/2021 Admitting Diagnosis headaches DS: Discharge Diagnosis Discharge Diagnosis (1) UTI (urinary tract infection): Code(s): N39.0 - Urinary tract infection, site not specified Status: Acute (2) Essential tremor: Code(s): G25.0 - Essential tremor Status: Acute (3) History of DVT (deep vein thrombosis): Code(s): Z86.718 - Personal history of other venous thrombosis and embolism Status: Acute DS: Summary Hospital Course Hospital Course: # Headaches left frontal and temporal since start of new antibiotic for UTI trimethoprim without sulfamethoxazole.? Headache started 30 minutes after the antibiotic was given.? Improved marginally with time but returned after 2nd dose of medication.? Antibiotic discontinued on Wednesday.? Headache associated with photophobia and mild nausea suspected migraine related probably exacerbated by new antibiotic.? Antibiotic discontinued.? Switch to Levaquin which he tolerated well.? Her CT head with no acute findings.? #History of CVAs.? Patient's CT of the brain on admission shows multiple chronic infarctions involving the left parietal lobe, right temporal lobe, left thalamus and the cerebellum. #Migraine headache #History of DVT on chronic anticoagulation #Hypertension #Essential tremor #UTI antibiotic change Levaquin which she tolerated well? urine culture growing Gram-negative bacilli? which came back as E coli resistant to levofloxacin.discussed with the daughter, she has tolerated cefdinir int he past. issue with ceftraixone as well. continue cefdinir at discharge for 7 more days #Severe right hydronephrosis detected in renal ultrasound.? Discussed with urologist will perform CT urogram however patient has allergy to dye will need to do premedication.? This was discussed with the daughter and okay for premedication.? Premedication to start today and will do CT urogram in a.m. status post CT urogram with right upper ureter stone with severe right hydronephrosis noted.? urology planning to do outpatient ESWL. This should be coordinated by urologist. #History of recurrent UTI urology consulted #DVT prophylaxis on warfarin which interacts current Levaquin monitor INR daily #Code status full code Time Spent with Patient Time attestation: Total time spent providing and/or coordinating discharge services: 40 minutes Exam Narrative: GENERAL: The patient is Thin built tired looking, not in acute distress HEENT: Nonicteric sclerae, PERRLA, EOMI. Oropharynx clear. Moist mucous membranes. Conjunctivae appear well perfused. CHEST: Chest wall is nontender. HEART: Regular rate and rhythm without murmur, rubs, or gallops LUNGS: Clear to auscultation bilaterally. no respiratory distress ABDOMEN: Soft, positive bowel sounds, non-tender, no organomegaly. SKIN: No rash, no excessive bruising, petechiae, or purpura. NEUROLOGIC: Cranial nerves II-XII intact, alert and oriented x 3, no gross motor deficits EXTREMITIES: no edema, cyanosis or clubbing DS: Data Data Completed and Pending Labs on day of discharge: Labs from last 24 hours 12/17/21 12/17/21 11:45 06:24 PT 22.2 H INR 2.0 SARS-CoV-2 IgG/IgM Ag?Rapid Pending Preliminary micro results at discharge 12/12/21 18:00 Blood Culture - Preliminary Blood 12/12/21 17:58 Blood Culture - Preliminary Blood Imaging Radiologist's impression: ITS Impressions Chest X-Ray 12/12/21 10:15 IMPRESSION: 1: Left basilar atelectasis. Head CT 12/12/21 10:32 IMPRESSION: 1. No acute intracranial abnormality. 2: Multiple chronic infarctions involving the left parietal lobe, right temporal lobe, left thalamus and the cerebellum bilaterally. 3: Chronic age-related findings. Renal Ultrasound 12/15/21 10:54 IMPRESSION: 1. Severe right hydronephrosis. Mild right kidney atrophy. Abdomen/Pelvis CT 12/16/21 09:00 IMPRESSION: 1. 10 mm
[2021-12-17 12:17] LABS: EDCOVIDSCREEN Negative (Negative)
[2021-12-17 12:45] VITALS: BP 137/90; PULSE 61; RESP 16; TEMP 36.7; O2SAT 93
== END 2021-12-17 14:00 | DRG 690 ==
LOC: ANHED 10:32 → ANH3MEDSUR 15:10
PROVIDERS: Nurse Practitioner; Admitting Provider Internal Medicine; Emergency Provider Nurse Practitioner Family; PCP Family Medicine Adolescent Medicine; Visit Provider Internal Medicine
DX: N13.6 Pyonephrosis (principal); T37.8X5A Adverse effect of other specified systemic anti-infectives and antiparasitics, initial encounter; G25.0 Essential tremor; G43.909 Migraine, unspecified, not intractable, without status migrainosus; B96.20 Unspecified Escherichia coli [E. coli] as the cause of diseases classified elsewhere; E86.0 Dehydration; H91.13 Presbycusis, bilateral; I10 Essential (primary) hypertension; Z20.822 Contact with and (suspected) exposure to COVID-19; Z98.49 Cataract extraction status, unspecified eye; Z86.718 Personal history of other venous thrombosis and embolism; Z86.73 Personal history of transient ischemic attack (TIA), and cerebral infarction without residual deficits; Z79.01 Long term (current) use of anticoagulants; Z28.21 Immunization not carried out because of patient refusal; Z87.891 Personal history of nicotine dependence; Z88.0 Allergy status to penicillin; Z88.1 Allergy status to other antibiotic agents; Z88.8 Allergy status to other drugs, medicaments and biological substances
CPT/HCPCS: 36415; 70450; 71045; 74178; 76775; 80053; 81001; 83605; 83735; 84484; 85025; 85610; 87040; 87077; 87086; 87186; 87426; 93005; 96361; 96365; 96367; 96372; 96375; 97110; 97116; 97162; 97165; 97530; 97535; 99285; A9270; C9803; G0378; G0379; J0696; J0744; J1200; J1650; J1956; J7030; J7512; Q9967; U0003; U0005

== ENCOUNTER 2022-01-19 08:37 | Outpatient (CLI) | payer MEDICARE, SELFPAY ==
[2022-01-19 09:59] LABS: INR 1.7; Partial Thromboplastin Time 32.8 SECONDS (22.3-36.8); Prothrombin Time 19.2 Seconds (11.1-14.7)
== END 2022-01-19 08:38 | disposition home or self-care (01) ==
PROVIDERS: PCP Family Medicine Adolescent Medicine; Visit Provider Urology
DX: N20.0 Calculus of kidney (principal); Z01.818 Encounter for other preprocedural examination
CPT/HCPCS: 36415; 85610; 85730; 87086; 87088

== ENCOUNTER 2022-01-22 19:53 | Inpatient (IN) | payer MEDICARE, SELFPAY ==
--- NOTE | ~2022-01-22 | XR_ITS ---
EXAMINATION: XR elbow LT min 3V DATE: 01/22/2022 20:36 INDICATION: Left elbow pain TECHNIQUE: Anteroposterior, two oblique and lateral views of the left elbow were obtained. COMPARISON: None. FINDINGS: Alignment is normal. No fracture or joint effusion. 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 Soft tissues are unremarkable. IMPRESSION: 1. 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 No joint effusion or acute osseous ab normality. Reviewed, dictated and finalized at location A. CA SPRAY MIXER IMPRESSION: 1. 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 No joint effusi on or acute osseous abnormality.
--- NOTE | ~2022-01-22 | XR_ITS ---
EXAMINATION: XR chest 1V portable INDICATION: Chest pain TECHNIQUE: Portable AP chest at 1156 hours COMPARISON: 01/22/2022 FINDINGS: There are minimal airspace opacities of the left lung base. No pleural effusion or pneumoth orax. The cardiomediastinal silhouette is normal. IMPRESSION: 1. Minimal left basilar airspace opacity, consistent with atelectasis versus pneumonia. Reviewed, dictated and finalized at location A. PROMENADE TILE SETTER IMPRESSION: 1. Minimal left basilar airspace opacity, consistent with atelectasis versus pn eumonia.
--- NOTE | ~2022-01-22 | XR_ITS ---
EXAMINATION: XR shoulder LT min 2V DATE: 01/22/2022 20:36 INDICATION: Left shoulder pain TECHNIQUE: AP internally and externally rotated and transscapular Y views of the left shoulder were o btained. COMPARISON: None FINDINGS: Normal alignment. No fracture.Moderate glenohumeral osteoarthritis with moderate nonuniform joint sp vandana narrowing and small marginal osteophytes along both the glenoid and humeral head. Mild acromiocla vicular osteoarthritis. Moderate sized anterior subacromial spur. Soft tissues are unremarkable. Gricelda re cervical and moderate thoracic spondylosis. Opacities at the left lower lung zone. IMPRESSION: 1. Moderate left glenohumeral and mild acromioclavicular osteoarthritis. No acute osseous abnormality . 2. Opacities at the left lower lung zone which could represent atelectasis or pneumonia. Reviewed, dictated and finalized at location A. ER STRAIGHTENER IMPRESSION: 1. Moderate left glenohumeral and mild acromioclavicular osteoarthritis. No acu te osseous abnormality. 2. Opacities at the left lower lung zone which could represent atelectasis or p neumonia.
--- NOTE | ~2022-01-22 | CT_ITS ---
EXAMINATION: CT brain wo con DATE: 01/22/2022 20:40 INDICATION: Fall with headache, weakness and altered mental status TECHNIQUE: Computed tomography (CT) of the head was performed without intravenous contrast. Sagittal and coronal reconstructions were performed. The mA was adjusted according to patient size. Iterative reconstruction technique was employed. The dose-length product was 1059.33 mGy-cm. COMPARISON: head CT dated 12/12/2021 FINDINGS: Hyperostosis frontalis. No fracture. Moderate-sized region of encephalomalacia at the cephalad aspect of the left cerebellar hemisphere small regions of encephalomalacia in the right cerebellar hemisphe re, right temporal lobe and at the left parietal lobe consistent with chronic infarcts. Additional sm all old lacunar infarct at the left thalamus. No acute intracranial hemorrhage, acute infarction or a bnormal extra axial fluid collection. There is mild scattered white matter hypoattenuation consistent with chronic small vessel ischemic disease. Ventricles are normal and symmetric. No mass/mass effec t. Changes of bilateral intraocular lens replacement. The orbits and mastoid air cells are normal. Mi ld mucosal thickening the bilateral ethmoid sinuses. IMPRESSION: 1. No fracture or acute intracranial process. 2. Old infarcts in the left parietal lobe, right thalamus, bilateral cerebellar hemispheres and left thalamus. Reviewed, dictated and finalized at location A. ILE SUPERVISOR
--- NOTE | ~2022-01-22 | MR_ITS ---
EXAMINATION: MR brain/brain stem wo con DATE: 01/24/2022 13:58 INDICATION: Unilateral weakness TECHNIQUE: Magnetic resonance imaging (MRI) of the brain and brainstem was performed without intraven ous contrast. Sequences included sagittal and axial T1-weighted SE, axial diffusion-weighted FS SE an d axial T2*-weighted GRE. Apparent diffusion coefficient (ADC) maps were created. Patient was uncoope rative and refused to continue MRI which was terminated prior to obtaining the axial T2-weighted FLAI R and axial T2-weighted FSE images. COMPARISON: Head CT dated 01/22/2022 FINDINGS: Moderate-sized region of restricted diffusion involving the right temporal lobe and temporoparietal r egion consistent with acute infarct. Encephalomalacia consistent with chronic infarcts in the bilater al cerebellar hemispheres, left larger than right, at the anterior inferior right temporal lobe and l eft parietal lobe. Small old lacunar infarct at the left thalamus. No foci of susceptibility artifact to suggest prior hemorrhage. No intracranial hemorrhage or abnormal intracranial mass lesion. The ve ntricles are symmetric and normal in size. There are no abnormal extra-axial fluid collections. Hyper ostosis frontalis. IMPRESSION: 1. Moderate-sized region of restricted diffusion consistent with acute infarct involving the right te mporal lobe and right temporal parietal region. 2. Old infarcts in the left parietal lobe, right temporal lobe, bilateral cerebellar hemispheres and left thalamus. 3. Somewhat limited study with noncooperative patient resulting in termination of the study prior to obtaining T2-weighted and T2 FLAIR sequences and with some motion artifact on the acquired sequences. Reviewed, dictated and finalized at location A. KEEPER IMPRESSION: 1. Moderate-sized region of restricted diffusion consistent with acute infarct involving the right temporal lobe and right temporal parietal region. 2. Old infarcts in the left parietal lobe, right temporal lobe, bilateral cereb ellar hemispheres and left thalamus. 3. Somewhat limited study with noncooperative patient resulting in termination of the study prior to obtaining T2-weighted and T2 FLAIR sequences and with edwar e motion artifact on the acquired sequences.
--- NOTE | ~2022-01-22 | XR_ITS ---
EXAMINATION: XR abdomen/kub 1V DATE: 01/23/2022 06:48 INDICATION: Kidney stone. TECHNIQUE: A supine view of the abdomen on 2 radiographs was obtained. COMPARISON: CT abdomen and pelvis 12/16/2021 FINDINGS: There are no dilated loops of bowel. There is a 13 x 8 mm stone in proximal right ureter wi thout change. There are phleboliths in the pelvis. There are phleboliths in right ovarian vein. IMPRESSION: 1. 13 x 8 mm stone in proximal right ureter without change. Reviewed, dictated and finalized at location A. ITION ASSISTANT
--- NOTE | ~2022-01-22 | US_ITS ---
EXAMINATION: US carotid duplex BI DATE: 01/26/2022 12:12 INDICATION: Hemiparesis. Right temporal and parietal lobe infarcts. TECHNIQUE: Grayscale, color Doppler, and pulsed Doppler images of the cervical carotid arteries were obtained. The degree of vessel stenosis is placed in one of the following categories: normal, <50%, 5 0-69%, >=70% but less than near-occlusion, near-occlusion, or total occlusion. Note that percent sten osis relative to normal distal artery lumen diameter is indirectly measured from velocity measurement s as described by Jonatan, et al. Radiology 2003; 229:340-346. COMPARISON: None. FINDINGS: RIGHT: The right common carotid artery (CCA) peak systolic velocity (PSV) is 90 cm/s. The right internal car otid artery (ICA) PSV is 49 cm/s. The right ICA end-diastolic velocity (EDV) is 16 cm/s. The right IC A/CCA PSV ratio is 0.5. Grayscale and color Doppler images yield an estimate of <50% diameter reducti on from plaque in the ICA. There is antegrade flow in the right vertebral artery. LEFT: The left CCA PSV is 67 cm/s. The left ICA PSV is 62 cm/s. The left ICA EDV is 19 cm/s. The left ICA/C CA PSV ratio is 0.9. Grayscale and color Doppler images yield an estimate of <50% diameter reduction from plaque in the ICA. There is antegrade flow in the left vertebral artery. IMPRESSION: 1. <50% stenosis in the right internal carotid artery. 2. <50% stenosis in the left internal carotid artery. Reviewed, dictated and finalized at location A. RY SUPERVISOR
--- NOTE | ~2022-01-22 | XR_ITS ---
EXAMINATION: XR chest 1V portable DATE: 01/22/2022 20:36 INDICATION: Fall and weakness. Left shoulder pain. TECHNIQUE: frontal view of the chest was obtained. COMPARISON: Chest radiograph dated 12/12/[address] dated 12/16/2021 FINDINGS: Patient is rotated towards the left. Lung volumes remain small bilaterally. There are mild left basil ar opacities. No pulmonary edema, pleural effusion or pneumothorax. Heart size is normal. Moderate th oracic and upper lumbar spondylosis. Persistent 13 x 7 mm stone at the right ureteropelvic junction. IMPRESSION: 1. Persistent bilateral small lung volumes with left basilar opacities which could represent atelecta sis or pneumonia. 2. Persistent 13 x 7 mm stone at the right ureteropelvic junction. Reviewed, dictated and finalized at location A. TERED FINANCIAL ANALYST IMPRESSION: 1. Persistent bilateral small lung volumes with left basilar opacities which co uld represent atelectasis or pneumonia. 2. Persistent 13 x 7 mm stone at the right ureteropelvic junction.
--- NOTE | ~2022-01-22 | XR_ITS ---
EXAMINATION: XR retrograde pyelo w/stent RT DATE: 01/23/2022 09:54 INDICATION: Right ureteral stone. TECHNIQUE: 5 intraoperative fluoroscopic views of the abdomen and pelvis were obtained. I was not pre sent. Fluoroscopy exposure time was 65 seconds. COMPARISON: Abdomen radiographs 01/23/2022 FINDINGS: There is a 13 x 8 mm stone in proximal right ureter. The right-sided retrograde pyelogram d emonstrates severe hydronephrosis. The final images demonstrate a right internal ureteral stent in ex pected position. IMPRESSION: 1. 13 x 8 mm stone in proximal right ureter with severe right hydronephrosis. 2. Right internal ureteral stent in expected position. Reviewed, dictated and finalized at location A. ICAL SERVICES MANAGER
--- NOTE | 2022-01-22 19:45 | ED.FALL ---
HPI - Fall General Chief Complaint: Fall Stated Complaint: glf laid on ground 3-4 hours Source: patient and EMS Mode of arrival: EMS Limitations: altered mental status History of Present Illness HPI Narrative: Patient is a 86-year-old female with a history of hypertension, hyperlipidemia, CVA, essential tremor, presenting to the emergency department for evaluation after patient was found on the ground by her daughter. Patient apparently lives independently with her who has dementia. Patient was found on the ground by her daughter this evening, prolonged downtime of approximately 4 hours. Unknown mechanism of fall. Patient is currently alert and oriented to person, not to place or time. She is reporting left shoulder and left arm pain, cannot give me mechanism of fall or any additional history. EMS does provide most of history. For them, states that her mental status was waxing and waning, at times she was able to answer questions reliably after significant prompting. They stated that house was disheveled, was present at home when they transported the patient. Related Data Home Medications Medication Instructions Recorded Confirmed docusate sodium 100 mg tablet 100 mg PO BID 01/09/22 01/09/22 (Stool Softener) Allergies Allergy/AdvReac Type Severity Reaction Status Date / Time iodixanol Allergy Unknown HIVES Verified 01/09/22 14:26 ceftriaxone [From Rocephin] Allergy Rash Verified 01/09/22 14:26 Penicillins Allergy HIVES Verified 01/09/22 14:26 Sulfa (Sulfonamide Allergy RASH Verified 01/09/22 14:26 Antibiotics) Contrast Media Allergy RASH Uncoded 01/09/22 14:26 Review of Systems Review of Systems: ROS unobtainable: Yes unobtainable due to mental status PMFSH Past Medical History Medical History Essential (primary) hypertension Essential tremor History of DVT (deep vein thrombosis) History of multiple cerebrovascular accidents (CVAs) correction (current) use of anticoagulants Personal history of other venous thrombosis and embolism Presbycusis, bilateral Surgical History Surgical History H/O bilateral cataract extraction H/O dilation and curettage H/O ureteroscopy History of removal of pigmented skin lesion Family History Family History Mother CHF (congestive heart failure), NYHA class I Cancer Social History Social History Social History: The patient lives with her . She has 4 children. Her has dementia and she takes care of him. She was a former smoker. The patient is retired. Her daughter Nasima is a durable power securities attorney for healthcare. She does not use any or marijuana. Code status full code Smoking packs per day: 1 Smoking cigarettes per day: 20.0 Years smoked: 10 Smoking pack-years: 10.00 Smoking status: Former smoker Tobacco type: cigarettes Second hand tobacco smoke exposure: No Smoking end date: 02/09/64 Alcohol intake: never Substance use: never Substance use type: does not use Lack of Transportation: No Lack of Food: Never True Current Housing: I Have Housing Concerned About Future Housing: No Difficulty Paying Gas/Electric Bills: No Difficulty Paying for Meds: No Currently Unemployed: No Education: Grade School Difficulty w/ Childcare or Family Care: No Gender identity (if verbalized by the patient): Female Sexual Orientation (if Verbalized by the Patient): Straight or Heterosexual Spiritual care concerns: No Agree to blood products: Yes Exam Narrative: Nursing note and vitals reviewed. CONSTITUTIONAL: The patient appears awake and alert. No distress. HEAD: Normocephalic and atraumatic. No facial asymmetry. No edema, ecchymoses. EYES: 2+ PERRL, EOMI, normal conjunc
[2022-01-22 20:08] VITALS: BP 132/71; PULSE 111; RESP 16; TEMP 36.7; O2SAT 97
--- NOTE | 2022-01-22 20:48 | ECG_ITS ---
Measurements Intervals [place] Rate: 60 P: 67 CT: 203 QRS: -31 QRSD: 130 T: -16 QT: 469 QTc: 469 Interpretive Statements SINUS RHYTHM WITH OCCASIONAL VENTRICULAR PREMATURE COMPLEXES MARKED LEFT AXIS DEVIATION [QRS AXIS < -30] RIGHT BUNDLE BRANCH BLOCK COMPARED TO ECG 12/12/2021 10:32:06 NO SIGNIFICANT CHANGES Electronically Signed On 01-23-2022 10:15:32 INORGANIC CHEMISTRY PROFESSOR by Sandeep Gibson M.D.
[2022-01-22 21:10] LABS: Basophils Absolute Auto 0.1 K/mm3 (0.0-0.1); Basophils Percent Auto 0.6 % (0.2-1.2); Eosinophils Absolute Auto 0.1 K/mm3 (0-0.3); Hematocrit 46.3 % (37.0-47.0); Hemoglobin 15.4 g/dL (12.0-15.0); Immature Granulocyte Absolute 0.05 K/mm3 (0.00-0.031); Immature Granulocyte Percent A 0.4 % (0-0.5); Lymphocytes Absolute Auto 1.34 K/mm3 (0.9-3.2); Lymphocytes Percent Auto 11.4 % (18.3-44.2); Mean Corpuscular HGB Conc 33.3 g/dl (32-36); Mean Corpuscular Hemoglobin 33.8 pg (26-34); Mean Corpuscular Volume 101.5 fl (80-100); Mean Platelet Volume 10.3 fl (7.4-10.4); Monocytes Absolute Auto 0.9 K/mm3 (0.1-0.6); Monocytes Percent Auto 7.6 % (2.6-8.5); Neutrophils Absolute Auto 9.3 K/mm3 (1.3-6.7); Platelet Count Result 223 k/mm3 (150-375); Red Blood Count 4.56 M/mm3 (4.2-5.4); Red Cell Distribution Width 12.4 % (11.5-14.5); White Blood Count 11.8 K/mm3 (4.5-10.0)
[2022-01-22 21:26] LABS: Alanine Aminotransferase 19 U/L (6-35); Albumin Level 3.7 g/dL (3.5-5.1); Alkaline Phosphatase 89 U/L (38-126); Anion Gap 6 mmol/L (8-16); Aspartate Amino Transferase 32 U/L (14-36); Bilirubin,Total 1.8 mg/dL (0.2-1.3); Blood Urea Nitrogen 13 mg/dL (7-17); CRP 0.5 mg/dL (<1.0); Calcium 9.5 mg/dL (8.4-10.2); Carbon Dioxide 28 mmol/L (22-30); Chloride 105 mmol/L (98-107); Creatine Kinase 85 U/L (30-135); Estimated Glomerular Filt Rate 60; Glucose 110 mg/dL (65-110); Potassium 3.5 mmol/L (3.4-5.0); Sodium 139 mmol/L (137-145)
[2022-01-22 21:34] LABS: Troponin I 0.017 ng/mL (0.000-0.034)
[2022-01-22 21:48] LABS: Influenza A QL RT-PCR Negative (Negative); Influenza B QL RT-PCR Negative (Negative); RSV RNA, RT-PCR Negative (Negative); SARS-CoV-2 RNA PCR Negative
[2022-01-22] MEDS: SODIUM CHLORIDE 0.9% IV 1,000 ML 999 ML IV CONT (21:48)
[2022-01-23] VITALS (20 sets, daily range): BP systolic 121–178; BP diastolic 61–109; PULSE 53–79; RESP 12–20; TEMP 36.2–37; O2SAT 93–99; BMI 30.2; BMI 28.7
[2022-01-23 05:58] LABS: Add Urine Microscopic? YES; Appearance Urine Clear (Clear); Bilirubin Urine Negative (Negative); Blood Urine Trace-Intact (Negative); Color Urine Light Yellow (Yellow); Glucose Urine UA Negative (Negative); Ketones Urine 1+ mg/dL (Negative); Leukocyte Esterase Ur 1+ LEU/UL (Negative); Nitrate Urine Positive (Negative); Protein Urine Negative (Negative); Specific Grav Ur 1.015 (1.001-1.035); Urobilinogen Urine 0.2 mg/dL (<2.0)
[2022-01-23 06:05] LABS: Bacteria Urine 2+ /hpf; Mucus Urine Rare /lpf
[2022-01-23] MEDS: LACTATED RINGERS 1,000 ML 125 ML IV CONT (06:19)
[2022-01-23] MEDS: CIPROFLOXACIN 400 MG/D5W 200ML 200 ML 200 MG IVPB ×2 (07:00→17:22)
[2022-01-23] MEDS: ACETAMINOPHEN 325 MG TABLET 650 MG PO (07:01)
--- NOTE | 2022-01-23 08:31 | PM.IMHP ---
H&P: HPI History of Present Illness Date/Time: 01/23/22 08:31 Chief Complaint: Generalized weakness and known right ureteral calculus Narrative: 86-year-old female known to me as result of her recent evaluation for recurrent urinary tract infections. This evaluation was undertaken during the course of her recent admission.. CT scan of the abdomen and pelvis, at that time, revealed a partially obstructing 10 mm right proximal ureteral stone. She was actually scheduled for outpatient right ESWL on the morning of this presentation to the ED. On that occasion she had been found in her home fallen unable to get up with generalized weakness. She appears to have another urinary tract infection. We will alter our plans for right ESWL and simply placed a right ureteral stent at this time. She will need definitive stone management once her infection has cleared. Review of Systems Review of Systems: ROS unobtainable: Yes unobtainable due to mental status PMFSH Past Medical History Medical History Essential (primary) hypertension Essential tremor History of DVT (deep vein thrombosis) History of multiple cerebrovascular accidents (CVAs) skilled nursing (current) use of anticoagulants Personal history of other venous thrombosis and embolism Presbycusis, bilateral Surgical History Surgical History H/O bilateral cataract extraction H/O dilation and curettage H/O ureteroscopy History of removal of pigmented skin lesion Family History Family History Mother CHF (congestive heart failure), NYHA class I Cancer Social History Social History Social History: The patient lives with her . She has 4 children. Her has dementia and she takes care of him. She was a former smoker. The patient is retired. Her daughter Nasima is a durable power attorney at law for healthcare. She does not use any or marijuana. Code status full code Smoking packs per day: 1 Smoking cigarettes per day: 20.0 Years smoked: 10 Smoking pack-years: 10.00 Smoking status: Former smoker Tobacco type: cigarettes Second hand tobacco smoke exposure: No Smoking end date: 02/09/64 Alcohol intake: never Substance use: never Substance use type: does not use Lack of Transportation: No Lack of Food: Never True Current Housing: I Have Housing Concerned About Future Housing: No Difficulty Paying Gas/Electric Bills: No Difficulty Paying for Meds: No Currently Unemployed: No Education: Grade School Difficulty w/ Childcare or Family Care: No Gender identity (if verbalized by the patient): Female Sexual Orientation (if Verbalized by the Patient): Straight or Heterosexual Spiritual care concerns: No Agree to blood products: Yes Meds Home Medications and Allergies Home Medications Medication Instructions Recorded Confirmed Type meloxicam 15 mg tablet 15 mg PO DAILY #90 tabs 07/03/21 01/09/22 Rx propranolol 40 mg tablet 40 mg PO Q12H #180 tabs 07/03/21 01/09/22 Rx warfarin 5 mg tablet 2.5 mg PO DAILY #90 tabs 07/30/21 01/09/22 Rx polyethylene glycol 3350 17 gram 17 g PO QAM PRN constipation #30 ea 12/17/21 01/09/22 Rx oral powder packet (Miralax) docusate sodium 100 mg tablet 100 mg PO BID 01/09/22 01/09/22 History (Stool Softener) Allergies Allergy/AdvReac Type Severity Reaction Status Date / Time iodixanol Allergy Unknown HIVES Verified 01/09/22 14:26 ceftriaxone [From Rocephin] Allergy Rash Verified 01/09/22 14:26 Penicillins Allergy HIVES Verified 01/09/22 14:26 Sulfa (Sulfonamide Allergy RASH Verified 01/09/22 14:26 Antibiotics) Contrast Media Allergy RASH Uncoded 01/09/22 14:26 Vital Signs Vital Signs - 24 hr 01/22/22 20:08 01/23/22 07:59 Temperature 98.1 F Pulse
--- NOTE | 2022-01-23 08:59 | WPDANESEPPF ---
Anes - Initial Pre Proc Eval Procedure: Operation Date: 01/23/22 09:30 Proposed Procedures p Cystoscopy, Right Stent Placement - Carlos Eduardo Mayers MD Date/Time: 01/23/22 08:59 Surgeon: Carlos Eduardo Mayers MD Pre Op Diagnosis: Weakness, Altered Mental Status Patient Data Age: 86 Gender: F Height: 1.55 m Weight: 72.6 kg Last Vital Signs Temp 36.2 C L 01/23/22 08:15 Pulse 66 01/23/22 08:15 Resp 16 01/23/22 08:15 BP 144/86 H 01/23/22 08:15 Pulse Ox 93 01/23/22 08:15 O2 Del Method Room Air 01/23/22 08:15 Allergies Allergy/AdvReac Type Severity Reaction Status Date / Time iodixanol Allergy Unknown HIVES Verified 01/09/22 14:26 ceftriaxone [From Rocephin] Allergy Rash Verified 01/09/22 14:26 Penicillins Allergy HIVES Verified 01/09/22 14:26 Sulfa (Sulfonamide Allergy RASH Verified 01/09/22 14:26 Antibiotics) Contrast Media Allergy RASH Uncoded 01/09/22 14:26 Home Medications Medication Instructions Recorded Confirmed Type meloxicam 15 mg tablet 15 mg PO DAILY #90 tabs 07/03/21 01/09/22 Rx propranolol 40 mg tablet 40 mg PO Q12H #180 tabs 07/03/21 01/09/22 Rx warfarin 5 mg tablet 2.5 mg PO DAILY #90 tabs 07/30/21 01/09/22 Rx polyethylene glycol 3350 17 gram 17 g PO QAM PRN constipation #30 ea 12/17/21 01/09/22 Rx oral powder packet (Miralax) docusate sodium 100 mg tablet 100 mg PO BID 01/09/22 01/09/22 History (Stool Softener) Laboratory Tests 01/22/22 01/22/22 01/22/22 20:49 21:00 21:00 WBC 11.8 K/mm3 H K/mm3 (4.5-10.0) RBC 4.56 M/mm3 M/mm3 (4.2-5.4) Hgb 15.4 g/dL H g/dL (12.0-15.0) Hct 46.3 % % (37.0-47.0) MCV 101.5 fl H fl (80-100) MCH 33.8 pg pg (26-34) MCHC 33.3 g/dl g/dl (32-36) RDW 12.4 % % (11.5-14.5) Plt Count 223 k/mm3 k/mm3 (150-375) MPV 10.3 fl fl (7.4-10.4) Immature Gran % (Auto) 0.4 % % (0-0.5) Neut % (Auto) 79.0 % H % (45.5-73.1) Lymph % (Auto) 11.4 % L % (18.3-44.2) [place] % (Auto) 7.6 % % (2.6-8.5) Eos % (Auto) 1.0 % % (0-4.4) Baso % (Auto) 0.6 % % (0.2-1.2) Lymph # (Auto) 1.34 K/mm3 K/mm3 (0.9-3.2) [place] # (Auto) 0.9 K/mm3 H K/mm3 (0.1-0.6) Eos # (Auto) 0.1 K/mm3 K/mm3 (0-0.3) Baso # (Auto) 0.1 K/mm3 K/mm3 (0.0-0.1) Abs Immat Gran (auto) 0.05 K/mm3 H K/mm3 (0.00-0.031) Absolute Neuts (auto) 9.3 K/mm3 H K/mm3 (1.3-6.7) Absolute Nucleated RBC 0.0 K/mm3 K/mm3 (0.0-0.012) Nucleated RBC % 0.0 % % (0.0-0.2) Sodium Potassium Chloride Carbon Dioxide Anion Gap BUN Creatinine Estim Creat Clear Calc Estimated GFR Glucose Lactic Acid Calcium Total Bilirubin AST ALT Alkaline Phosphatase Total Creatine Kinase Cancelled Troponin I C-Reactive Protein Total Protein Albumin Urine Color Urine Appearance Urine pH Ur Specific [place] Urine Protein Urine Glucose (UA) Urine Ketones Ur Blood (Man) Urine Nitrate Urine Bilirubin Urine Urobilinogen Leukocyte Esterase Rfl Urine RBC Urine WBC Urine Bacteria Urine Mucus Influenza A (RT-PCR) Negative (Negative) Influenza B (RT-PCR) Negative (Negative) RSV (RT-PCR) Negative (Negative) SARS-CoV-2 RNA (RT-PCR) Negative 01/22/22 01/23/22 01/23/22 21:00 02:42 06:46 WBC RBC Hgb Hct MCV
--- NOTE | 2022-01-23 09:20 | WPDHPUPDATE1 ---
History and Physical Update Update Date/Time: 01/23/22 09:20 History and Physical has been reviewed, including an updated exam of the patient. There are NO changes in the patient's condition. Risks, benefits, and alternatives have been discussed and questions answered. Patient agrees to proceed with procedure.
[2022-01-23] MEDS: LIDOCAINE HCL 2% GEL UROJET 10 ML PKG MUCOUS MEM (09:47)
[2022-01-23] MEDS: LACTATED RINGERS 1,000 ML 30 ML IV CONT (09:56)
--- NOTE | 2022-01-23 10:06 | W.PM.PROC2 ---
Procedure Note - Detailed Date of Procedure 01/23/22 Pre-op Diagnosis Weakness, Altered Mental Status, Left Ureteral Stone Post-op Diagnosis Same Procedure Performed Cystoscopy, left retrograde pyelography and left ureteral stent placement Surgeon Carlos Eduardo Mayers MD Anesthesia General Description of Procedure Patient is brought to the op suite where she was prepped draped in routine sterile fashion while in a dorsal lithotomy position. Cystoscopy is undertaken with a 19 F rigid cystoscope. Bladder neck and urethra are endoscopically normal. Bladder mucosa is normal with only minimal hyperemia, suggestive of a bacterial cystitis. She has a single orthotopic ureteral orifice. Right retrograde pyelogram was obtained using a [place] catheter. She has a large obstructing stone in the right proximal ureter. The remainder of the collecting system ureter are without filling defects or other abnormal findings. A 0.035 in glidewire was advanced in the right renal pelvis and a 4.8 F double-J ureteral stent is positioned with the proximal coil in the renal pelvis and distal coil in the bladder. Scopes and wires removed the patient was taken the recovery room good condition. Urine Output 200 Drains No Complications No immediate complications Condition Stable Disposition PACU
--- NOTE | 2022-01-23 11:10 | SUR.PHASEI ---
1110 PT MEETS ANESTHESIA DISCHARGE CRITERIA TO LEAVE PACU. NO POST OP ROOM AVAILABLE. ON HOLD.
--- NOTE | 2022-01-23 13:30 | PM.IMHP ---
H&P: HPI History of Present Illness Date/Time: 01/23/22 13:30 Chief Complaint: fall Narrative: Patient is an 86-year-old female with a past medical history of hypertension, CVA, DVT who presented to the ED after a fall. Patient currently lives with her and was found on the ground by her daughter. Patient was a very poor historian and most of the history came from the charge an electrical medical record. According to the chart the daughter had went over to check on the patient and found the patient on the ground for a prolonged amount of time approximately 4 hours. The patient did elaborate stated that she did fall as a Rollator had got ahead of her and she fell flat on her face. She stated that the right side of her face does hurt. She could not give me other further history other than that. She did state that she want to sit up and she does seem to be in pain generalized. She does who she is however she did not really answer my question about place, time, situation. She did tell me however she just wants this to be all over with. Currently patient denies any chest pain, shortness a breath, diarrhea, constipation, lightheadedness, dizziness. Patient does appear to be very weak as she does not really hold much attention. She was also unable to lift her body up and set up. CT of the abd/pel showed a large stone in the right ureter. Urology was consulted and patient was taken to the OR. for stent placement. Patient is being admitted to the hospitalist service under observation Review of Systems Review of Systems: All systems reviewed & are unremarkable except as noted in HPI and below PMFSH Past Medical History Medical History Acute hemorrhagic cystitis Altered mental status Essential (primary) hypertension Essential tremor History of DVT (deep vein thrombosis) History of multiple cerebrovascular accidents (CVAs) Hydronephrosis, right Kidney stones senior care (current) use of anticoagulants Low back pain, unspecified Personal history of other venous thrombosis and embolism Presbycusis, bilateral Right renal stone Sepsis Unilateral primary osteoarthritis, right hip Unilateral primary osteoarthritis, right knee UTI (urinary tract infection) Weakness Surgical History Surgical History H/O bilateral cataract extraction H/O dilation and curettage H/O ureteroscopy History of removal of pigmented skin lesion Family History Family History Mother CHF (congestive heart failure), NYHA class I Cancer Social History Social History Social History: The patient lives with her . She has 4 children. Her has dementia and she takes care of him. She was a former smoker. The patient is retired. Her daughter Nasima is a durable power personal injury attorney for healthcare. She does not use any or marijuana. Code status full code Smoking packs per day: 1 Smoking cigarettes per day: 20.0 Years smoked: 10 Smoking pack-years: 10.00 Smoking status: Former smoker Tobacco type: cigarettes Second hand tobacco smoke exposure: No Smoking end date: 02/09/64 Alcohol intake: never Substance use: never Substance use type: does not use Lack of Transportation: No Lack of Food: Never True Current Housing: I Have Housing Concerned About Future Housing: No Difficulty Paying Gas/Electric Bills: No Difficulty Paying for Meds: No Currently Unemployed: No Education: Grade School Difficulty w/ Childcare or Family Care: No Gender identity (if verbalized by the patient): Female Sexual Orientation (if Verbalized by the Patient): Straight or Heterosexual Spiritual care concerns: No Agree to blood products: Yes Meds Home Medications and Allergies Home Medications
--- NOTE | 2022-01-23 14:40 | ADMGEN ---
This patient, Tracey Macedo, was admitted to Medical Room 248-. Patient/family oriented to hospital policies and general routines including ID bracelet, bed and alarms, visiting hours, pain management, procedures, bathroom and other care routines, personal items, smoking policy, room service/diet, and visiting hours. Information on how to activate the Rapid Response Team has been discussed. Patient/Family are encouraged to report perceived risks to care and to ask questions if they do not understand what they are told or what they should do.
[2022-01-23 15:43] LABS: Basophils Percent Auto 0.3 % (0.2-1.2); Hematocrit 48.1 % (37.0-47.0); Hemoglobin 16.3 g/dL (12.0-15.0); Immature Granulocyte Absolute 0.06 K/mm3 (0.00-0.031); Immature Granulocyte Percent A 0.6 % (0-0.5); Lymphocytes Absolute Auto 0.48 K/mm3 (0.9-3.2); Lymphocytes Percent Auto 4.6 % (18.3-44.2); Mean Corpuscular HGB Conc 33.9 g/dl (32-36); Mean Corpuscular Hemoglobin 33.8 pg (26-34); Mean Corpuscular Volume 99.8 fl (80-100); Monocytes Absolute Auto 0.1 K/mm3 (0.1-0.6); Neutrophils Absolute Auto 9.8 K/mm3 (1.3-6.7); Neutrophils Percent Auto 93.5 % (45.5-73.1); Platelet Count Result 211 k/mm3 (150-375); Red Blood Count 4.82 M/mm3 (4.2-5.4); Red Cell Distribution Width 12.2 % (11.5-14.5); White Blood Count 10.4 K/mm3 (4.5-10.0)
[2022-01-23 15:54] LABS: Alanine Aminotransferase 19 U/L (6-35); Albumin Level 4.1 g/dL (3.5-5.1); Alkaline Phosphatase 88 U/L (38-126); Anion Gap 8 mmol/L (8-16); Aspartate Amino Transferase 32 U/L (14-36); Bilirubin,Total 1.9 mg/dL (0.2-1.3); Blood Urea Nitrogen 10 mg/dL (7-17); Calcium 9.4 mg/dL (8.4-10.2); Carbon Dioxide 24 mmol/L (22-30); Chloride 103 mmol/L (98-107); Creatine Kinase 113 U/L (30-135); Estimated CRCL calculation 48 ml/min; Estimated Glomerular Filt Rate > 60; Glucose 152 mg/dL (65-110); Potassium 3.5 mmol/L (3.4-5.0); Sodium 135 mmol/L (137-145)
[2022-01-23] MEDS: PROPRANOLOL HCL 40 MG TABLET PO (20:16)
[2022-01-24] VITALS (8 sets, daily range): BP systolic 105–145; BP diastolic 63–87; PULSE 57–71; RESP 16–18; TEMP 36.2–36.8; O2SAT 90–95; BMI 11.0
--- NOTE | 2022-01-24 | ECHO_ITS ---
Patient Info Name: Tracey Macedo Age: 86 years : 1935 Gender: Female Ht: 62 in Wt: 157 lbs BSA: 1.79 m2 HR: 78 bpm BP: 112 / 74 mmHg Heart Rhythm: Sinus Rhythm Technical Quality: Good Exam Date: 01/24/2022 2:30 PM Exam Location: [facility] Patient Status: Inpatient Admit Date: 01/23/2022 Staff Ordering Physician: Eliseo Rai Lap Grinder: Fabiana Lomax RDCS Attending Provider: Dick Tang MD Exam Type: CA echo doppler color flow Study Info Complete two-dimensional, color flow and Doppler transthoracic echocardiogram is performed. Contrast/Agitated Saline Contrast/Ag. Saline: Definity Amount: 2.00 ml Administered By: Fabiana Lomax [facility] Existing IV Access: Yes Summary 1. Complete two-dimensional, color flow and Doppler transthoracic echocardiogram is performed. 2. Normal left ventricular size with mild concentric hypertrophy. Overall good systolic function, ejection fraction 65-70%, with a small area of posterolateral hypokinesis. Grade 2 diastolic dysfunction is present. 3. There is mild tricuspid valve regurgitation. 4. Mildly dilated ascending aorta, 4.0 cm. 5. No pulmonary hypertension, estimated pulmonary arterial systolic pressure is 24 mmHg. 6. Normal sinus rhythm. Left Ventricle Left ventricular chamber dimension is normal. Left ventricular systolic function is normal, estimated at 65-70%. There is mildly increased left ventricular wall thickness. Left ventricular septal wall motion is normal. The left ventricular diastolic function is grade II diastolic dysfunction. Right Ventricle Right ventricular chamber dimension is normal. Right ventricular systolic function is normal. Left Atria Left atrial chamber dimension is mildly enlarged. Right Atria Right atrial chamber dimension is normal. Linear artifact in the right atrium suggestive of catheter(s), pacemaker lead(s), or ICD lead(s). Aortic Valve The aortic valve is trileaflet. There is no aortic valve sclerosis. There is no aortic valve stenosis. There is trace aortic valve regurgitation. Pulmonic Valve The pulmonic valve is normal. There is no pulmonic valve stenosis. There is trace pulmonic regurgitation. Mitral Valve The mitral valve has thickened leaflets, and calcification of the subvalvular apparatus.. There is no mitral valve stenosis. There is no mitral valve regurgitation. Tricuspid Valve The tricuspid valve leaflets are normal. There is mild tricuspid valve stenosis. There is mild tricuspid valve regurgitation. No pulmonary hypertension, estimated pulmonary arterial systolic pressure is 24 mmHg. Pericardium/Pleural The pericardium appears normal. There is no pericardial effusion. Inferior Vena Cava Normal inferior vena cava with >50% collapse upon inspiration consistent with Empty right atrial pressure, 10 mmHg. Aorta The aortic root size at the sinus of Valsalva is normal. The prox ascending aorta size is normal. The aorta arch size is mildly dilated measuring Empty. Left Ventricular Outflow Tract Name Value Normal LVOT 2D LVOT Diameter 2.0 cm LVOT Doppler -
[2022-01-24] MEDS: CIPROFLOXACIN 400 MG/D5W 200ML 200 ML 200 MG IVPB ×2 (05:08→17:37)
[2022-01-24 05:28] LABS: Basophils Percent Auto 0.2 % (0.2-1.2); Hematocrit 43.1 % (37.0-47.0); Hemoglobin 14.5 g/dL (12.0-15.0); Immature Granulocyte Absolute 0.06 K/mm3 (0.00-0.031); Immature Granulocyte Percent A 0.5 % (0-0.5); Lymphocytes Absolute Auto 0.91 K/mm3 (0.9-3.2); Mean Corpuscular HGB Conc 33.6 g/dl (32-36); Mean Corpuscular Hemoglobin 33.3 pg (26-34); Mean Corpuscular Volume 98.9 fl (80-100); Mean Platelet Volume 10.7 fl (7.4-10.4); Monocytes Absolute Auto 0.9 K/mm3 (0.1-0.6); Monocytes Percent Auto 6.6 % (2.6-8.5); Neutrophils Absolute Auto 11.1 K/mm3 (1.3-6.7); Neutrophils Percent Auto 85.7 % (45.5-73.1); Platelet Count Result 227 k/mm3 (150-375); Red Blood Count 4.36 M/mm3 (4.2-5.4)
[2022-01-24 05:32] LABS: INR 1.2; Partial Thromboplastin Time 24.2 SECONDS (22.3-36.8); Prothrombin Time 14.4 Seconds (11.1-14.7)
[2022-01-24 05:50] LABS: Alanine Aminotransferase 17 U/L (6-35); Albumin Level 3.7 g/dL (3.5-5.1); Alkaline Phosphatase 74 U/L (38-126); Anion Gap 5 mmol/L (8-16); Aspartate Amino Transferase 27 U/L (14-36); Bilirubin,Total 1.5 mg/dL (0.2-1.3); Blood Urea Nitrogen 14 mg/dL (7-17); Calcium 9.4 mg/dL (8.4-10.2); Carbon Dioxide 27 mmol/L (22-30); Chloride 100 mmol/L (98-107); Estimated CRCL calculation 38 ml/min; Estimated Glomerular Filt Rate 60; Glucose 119 mg/dL (65-110); Potassium 3.5 mmol/L (3.4-5.0); Sodium 132 mmol/L (137-145)
--- NOTE | 2022-01-24 09:00 | P.PNIM_ITS ---
Progress Note: A&P Assessment and Plan (1) Weakness: Code(s): R53.1 - Weakness Status: Acute Assessment and Plan: * Appears to have a left facial droop and left upper extremity weakness * Head CT from 01/22/22 does not indicate any new findings * CT of brain ordered * MRI of the brain ordered * Carotid doppler ordered * Does not appear to be eligible for tPA last known normal unknown, on warfarin, previous stroke noted, recent surgical procedure, >80 years old, here for fall * Does have a history of multiple infarctions involving the left parietal lobe, right thalamus, bilateral cerebral hemispheres and left thalamus * neurology consulted (2) Acute metabolic encephalopathy: Code(s): G93.41 - Metabolic encephalopathy Status: Acute Assessment and Plan: * A&O x1 * head CT shows no acute abnormalities * urinalysis does look abnormal, awaiting culture result * Brain MRI ordered, due to new findings of weakness and facial droop * Neuro consulted * ceftriaxone on board * CK negative (3) Right ureteral stone: Code(s): N20.1 - Calculus of ureter Status: Acute Assessment and Plan: * x-ray of the abdomen showed a 13 x 8 mm stone proximal right ureter without change * urology was consulted * patient taking the OR for right ureteral stent * trend urine output (4) Abnormal urinalysis: Code(s): R82.90 - Unspecified abnormal findings in urine Status: Acute Assessment and Plan: * UA does appear infectious * Urine culture pending * antibiotics for now * Adjust therapy as indicated (5) Essential (primary) hypertension: Code(s): I10 - Essential (primary) hypertension Status: Acute Assessment and Plan: * Current BP 145/72 * Continue Home propranolol * Trend Blood pressure * Adjust therapy as indicated (6) Fall: Code(s): W19.XXXA - Unspecified fall, initial encounter Status: Acute Assessment and Plan: * patient endorses a fall * head CT was negative for any acute abnormalities * PT and OT ordered * fall precautions (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 Upon arrival to the room the patient did seem to be very lethargic and drowsy. Left side does seem to be flaccid however she did respond pain Without moving her arm but did try to find the pain with her other hand. She would not follow any commands to do a NIH stroke scale. Last known normal is unknown at this time she does also appear to have a left facial droop. INR was subtherapeutic 1.2 yesterday. ordered a brain MRI, echo Doppler, CTA of the brain and neck, Chest x-ray. Patient did state that her chest hurt however getti
--- NOTE | 2022-01-24 09:00 | PM.IMPN ---
Progress Note: A&P Assessment and Plan (1) Weakness: Code(s): R53.1 - Weakness Status: Acute Assessment and Plan: Appears to have a left facial droop and left upper extremity weakness Head CT from 01/22/22 does not indicate any new findings CT of brain ordered MRI of the brain ordered Carotid doppler ordered Does not appear to be eligible for tPA last known normal unknown, on warfarin, previous stroke noted, recent surgical procedure, >82 years old, here for fall Does have a history of multiple infarctions involving the left parietal lobe, right thalamus, bilateral cerebral hemispheres and left thalamus neurology consulted (2) Acute metabolic encephalopathy: Code(s): G93.41 - Metabolic encephalopathy Status: Acute Assessment and Plan: A&O x1 head CT shows no acute abnormalities urinalysis does look abnormal, awaiting culture result Brain MRI ordered, due to new findings of weakness and facial droop Neuro consulted ceftriaxone on board CK negative (3) Right ureteral stone: Code(s): N20.1 - Calculus of ureter Status: Acute Assessment and Plan: x-ray of the abdomen showed a 13 x 8 mm stone proximal right ureter without change urology was consulted patient taking the OR for right ureteral stent trend urine output (4) Abnormal urinalysis: Code(s): R82.90 - Unspecified abnormal findings in urine Status: Acute Assessment and Plan: UA does appear infectious Urine culture pending antibiotics for now Adjust therapy as indicated (5) Essential (primary) hypertension: Code(s): I10 - Essential (primary) hypertension Status: Acute Assessment and Plan: Current BP 145/72 Continue Home propranolol Trend Blood pressure Adjust therapy as indicated (6) Fall: Code(s): W19.XXXA - Unspecified fall, initial encounter Status: Acute Assessment and Plan: patient endorses a fall head CT was negative for any acute abnormalities PT and OT ordered fall precautions (7) 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 Upon arrival to the room the patient did seem to be very lethargic and drowsy. Left side does seem to be flaccid however she did respond pain Without moving her arm but did try to find the pain with her other hand. She would not follow any commands to do a NIH stroke scale. Last known normal is unknown at this time she does also appear to have a left facial droop. INR was subtherapeutic 1.2 yesterday. ordered a brain MRI, echo Doppler, CTA of the brain and neck, Chest x-ray. Patient did state that her chest hurt however getting a complete review of systems Was not obtained due to patient's mental status. She did state over and over that she just was tired and wanted to sleep. She did wrap her chest a lot and stated that it did hurt however troponin from the ED did not show any elevation. Ordered a repeat troponin, EKG, echo Doppler. Wonder if her chest hurts due to being unresponsive and possible sternal chest rub. spoke with patient's daughter Nasima who stated that when she had arrived to her house on the day that she fell she did notice that the arm was not moving as well. She also stated that her mom was having a hard time with communicating but telling
--- NOTE | 2022-01-24 11:45 | ECG_ITS ---
Measurements Intervals Smith Rate: 66 P: 78 OK: 203 QRS: -39 QRSD: 130 T: -13 QT: 458 QTc: 481 Interpretive Statements SINUS RHYTHM MARKED LEFT AXIS DEVIATION [QRS AXIS < -30] RIGHT BUNDLE BRANCH BLOCK [120+ ms QRS DURATION, UPRIGHT V1, 40+ ms S IN I/aVL/V4/V5/V6] MODERATE VOLTAGE CRITERIA FOR LVH, CONSIDER NORMAL VARIANT [MEETS CRITERIA IN ONE OF: R(aVL), S(V1), R(V5), R(V5/V6)+S(V1)] COMPARED TO ECG 01/22/2022 20:48:10 NO SIGNIFICANT CHANGES Electronically Signed On 01-24-2022 16:57:23 BOTTOM HOOP DRIVER by Mone Carrera M.D.
[2022-01-24 12:27] LABS: Troponin I 0.035 ng/mL (0.000-0.034)
[2022-01-24] MEDS: ENOXAPARIN 40 MG/0.4 ML SYRINGE SUB-Q (12:46)
[2022-01-24] MEDS: PROPRANOLOL HCL 40 MG TABLET PO ×2 (12:46→21:17)
[2022-01-24] MEDS: MELOXICAM 7.5 MG TABLET 15 MG PO (12:47)
[2022-01-24] MEDS: DOCUSATE SODIUM 100 MG CAPSULE 200 MG PO (12:47)
[2022-01-24] MEDS: ACETAMINOPHEN 325 MG TABLET 650 MG PO (12:47)
--- NOTE | 2022-01-24 12:54 | PC.NURSE ---
pt able to swallow pills one at a time with a lot of encouragement and direction, will continue to monitor
[2022-01-24 15:49] LABS: Troponin I 0.029 ng/mL (0.000-0.034)
[2022-01-24] MEDS: HYDROcodone/acetaminophen (*CRX) 5-325 MG TABLET 1 TAB PO (17:37)
[2022-01-24] MEDS: WARFARIN (*PBKC) 5 MG TABLET PO (17:37)
[2022-01-25] VITALS (8 sets, daily range): BP systolic 100–170; BP diastolic 57–98; PULSE 54–64; RESP 16–21; TEMP 36.1–36.7; O2SAT 90–100; BMI 11.0
[2022-01-25 00:03] LABS: Add Urine Microscopic? YES; Appearance Urine Cloudy (Clear); Bilirubin Urine Negative (Negative); Blood Urine 2+ (Negative); Color Urine Yellow (Yellow); Glucose Urine UA Negative (Negative); Ketones Urine Trace mg/dL (Negative); Leukocyte Esterase Ur 2+ LEU/UL (Negative); Nitrate Urine Positive (Negative); Protein Urine 2+ mg/dL (Negative); Specific Grav Ur >= 1.030 (1.001-1.035); pH Urine 5.5 (5.0-9.0)
[2022-01-25 00:10] LABS: Bacteria Urine 4+ /hpf; Mucus Urine Few /lpf; RBC Urine >75 /hpf (0-2); Squamous Epithelial Cell Urine Many /hpf (Few); WBC Clumps Urine Present /HPF; WBC Urine >75 /hpf
[2022-01-25] MEDS: CIPROFLOXACIN 400 MG/D5W 200ML 200 ML 200 MG IVPB (06:15)
[2022-01-25 06:18] LABS: Basophils Absolute Auto 0.1 K/mm3 (0.0-0.1); Basophils Percent Auto 0.5 % (0.2-1.2); Eosinophils Absolute Auto 0.1 K/mm3 (0-0.3); Eosinophils Percent Auto 1.2 % (0-4.4); Hematocrit 41.7 % (37.0-47.0); Hemoglobin 14.1 g/dL (12.0-15.0); Immature Granulocyte Absolute 0.05 K/mm3 (0.00-0.031); Immature Granulocyte Percent A 0.5 % (0-0.5); Lymphocytes Percent Auto 17.5 % (18.3-44.2); Mean Corpuscular HGB Conc 33.8 g/dl (32-36); Mean Corpuscular Hemoglobin 33.5 pg (26-34); Mean Platelet Volume 10.5 fl (7.4-10.4); Monocytes Percent Auto 9.9 % (2.6-8.5); Neutrophils Absolute Auto 6.8 K/mm3 (1.3-6.7); Neutrophils Percent Auto 70.4 % (45.5-73.1); Platelet Count Result 193 k/mm3 (150-375); Red Blood Count 4.21 M/mm3 (4.2-5.4); Red Cell Distribution Width 12.3 % (11.5-14.5); White Blood Count 9.7 K/mm3 (4.5-10.0)
[2022-01-25 06:32] LABS: INR 1.2; Prothrombin Time 14.8 Seconds (11.1-14.7)
[2022-01-25 06:34] LABS: Alanine Aminotransferase 19 U/L (6-35); Albumin Level 3.5 g/dL (3.5-5.1); Alkaline Phosphatase 75 U/L (38-126); Anion Gap 7 mmol/L (8-16); Aspartate Amino Transferase 34 U/L (14-36); Bilirubin,Total 1.7 mg/dL (0.2-1.3); Blood Urea Nitrogen 15 mg/dL (7-17); Calcium 9.4 mg/dL (8.4-10.2); Carbon Dioxide 26 mmol/L (22-30); Chloride 104 mmol/L (98-107); Estimated CRCL calculation 38 ml/min; Estimated Glomerular Filt Rate 60; Glucose 85 mg/dL (65-110); Magnesium 1.9 mg/dL (1.6-2.3); Potassium 3.1 mmol/L (3.4-5.0); Sodium 137 mmol/L (137-145)
[2022-01-25 08:36] LABS: Cholesterol 187 mg/dL (0-200); HDL Direct 40 mg/dL; Triglycerides 170 mg/dL (<150)
[2022-01-25] MEDS: PROPRANOLOL HCL 40 MG TABLET PO ×2 (08:36→21:02)
[2022-01-25] MEDS: DOCUSATE SODIUM 100 MG CAPSULE 200 MG PO (08:36)
[2022-01-25] MEDS: ENOXAPARIN 40 MG/0.4 ML SYRINGE SUB-Q (08:36)
[2022-01-25] MEDS: levoFLOXacin 750 MG TABLET PO (08:45)
[2022-01-25] MEDS: ASPIRIN 81 MG ENTERIC TABLET PO (08:45)
[2022-01-25] MEDS: ATORVASTATIN 40 MG TABLET PO (08:45)
[2022-01-25] MEDS: lisinopriL 5 MG TABLET PO (08:45)
[2022-01-25 08:47] LABS: LDL Cholesterol Direct 98 mg/dL
[2022-01-25] MEDS: POTASSIUM CHLORIDE 20 MEQ PACKET (FOR LIQUID) 40 MEQ PO (09:19)
[2022-01-25] MEDS: polyethylene glycoL 3350 17 GM POWD.PACK PO (09:19)
[2022-01-25] MEDS: HYDROcodone/acetaminophen (*CRX) 5-325 MG TABLET 1 TAB PO ×2 (10:24→21:01)
--- NOTE | 2022-01-25 11:15 | P.PNIM_ITS ---
Progress Note: A&P Assessment and Plan (1) Stroke: Code(s): I63.9 - Cerebral infarction, unspecified Status: Acute Assessment and Plan: * left facial droop and left upper extremity weakness noted on 01/24/22 * Facial droop is resolved * Head CT from 01/22/22 does not indicate any new findings * MRI of the brain moderate-sized region of restricted diffusion consistent with acute infarct involving the right temporal lobe and right temporal parietal region, old infarcts noted * See if patient can switch anticoagulation to Eliquis * Start aspirin, statin * Carotid doppler ordered * Lipid panel in a.m. * Does not appear to be eligible for tPA last known normal unknown, on warfarin, previous stroke noted, recent surgical procedure, >82 years old, here for fall * Does have a history of multiple infarctions involving the left parietal lobe, right thalamus, bilateral cerebral hemispheres and left thalamus * neurology consulted (2) Acute metabolic encephalopathy: Code(s): G93.41 - Metabolic encephalopathy Status: Acute Assessment and Plan: * A&O x4 seems to be improving * head CT shows no acute abnormalities * Urine culture preliminary is gram(-) bacilli * Brain MRI showed new stroke * Neuro consulted * Change cipro to levaquin * CK negative (3) Right ureteral stone: Code(s): N20.1 - Calculus of ureter Status: Acute Assessment and Plan: * x-ray of the abdomen showed a 13 x 8 mm stone proximal right ureter without change * urology was consulted * Stent placed on 01/23/22 * trend urine output (4) UTI (urinary tract infection): Code(s): N39.0 - Urinary tract infection, site not specified Status: Acute Assessment and Plan: * UA does appear infectious * Urine culture gram negative bacilli * Cipro changed to Primaxin * Awaiting sensitivities * Adjust therapy as indicated (5) Essential (primary) hypertension: Code(s): I10 - Essential (primary) hypertension Status: Acute Assessment and Plan: * Current BP 150/85 * Continue Home propranolol, add lisinopril * Trend Blood pressure * Adjust therapy as indicated (6) Fall: Code(s): W19.XXXA - Unspecified fall, initial encounter Status: Acute Assessment and Plan: * patient endorses a fall * head CT was negative for any acute abnormalities * Head MRI indicated new stroke * PT and OT ordered * fall precautions (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 She did state that her knees hurt. She has no feeling in the left side including the face the arm and the leg. She was able sit on the side the bed for short period times a day. She denies any chest pain, shortness a breath, nausea, vomiting, diarrhea or constipation. She does hav
--- NOTE | 2022-01-25 11:15 | PM.IMPN ---
Progress Note: A&P Assessment and Plan (1) Stroke: Code(s): I63.9 - Cerebral infarction, unspecified Status: Acute Assessment and Plan: left facial droop and left upper extremity weakness noted on 01/24/22 Facial droop is resolved Head CT from 01/22/22 does not indicate any new findings MRI of the brain moderate-sized region of restricted diffusion consistent with acute infarct involving the right temporal lobe and right temporal parietal region, old infarcts noted See if patient can switch anticoagulation to Eliquis Start aspirin, statin Carotid doppler ordered Lipid panel in a.m. Does not appear to be eligible for tPA last known normal unknown, on warfarin, previous stroke noted, recent surgical procedure, >82 years old, here for fall Does have a history of multiple infarctions involving the left parietal lobe, right thalamus, bilateral cerebral hemispheres and left thalamus neurology consulted (2) Acute metabolic encephalopathy: Code(s): G93.41 - Metabolic encephalopathy Status: Acute Assessment and Plan: A&O x4 seems to be improving head CT shows no acute abnormalities Urine culture preliminary is gram(-) bacilli Brain MRI showed new stroke Neuro consulted Change cipro to levaquin CK negative (3) Right ureteral stone: Code(s): N20.1 - Calculus of ureter Status: Acute Assessment and Plan: x-ray of the abdomen showed a 13 x 8 mm stone proximal right ureter without change urology was consulted Stent placed on 01/23/22 trend urine output (4) UTI (urinary tract infection): Code(s): N39.0 - Urinary tract infection, site not specified Status: Acute Assessment and Plan: UA does appear infectious Urine culture gram negative bacilli Cipro changed to Primaxin Awaiting sensitivities Adjust therapy as indicated (5) Essential (primary) hypertension: Code(s): I10 - Essential (primary) hypertension Status: Acute Assessment and Plan: Current BP 150/85 Continue Home propranolol, add lisinopril Trend Blood pressure Adjust therapy as indicated (6) Fall: Code(s): W19.XXXA - Unspecified fall, initial encounter Status: Acute Assessment and Plan: patient endorses a fall head CT was negative for any acute abnormalities Head MRI indicated new stroke PT and OT ordered fall precautions (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 She did state that her knees hurt. She has no feeling in the left side including the face the arm and the leg. She was able sit on the side the bed for short period times a day. She denies any chest pain, shortness a breath, nausea, vomiting, diarrhea or constipation. She does have a bit of a swallowing defect with straws. Attempted to call speech back however never heard back. Daughter did state that the arm has been an issue over the last few days. Talked to her about rehab. Answered all questions with her. Also am switching the patient over to Eliquis which I discussed with her as well due to no need for labs in easy to manage. She also stated that the patient stop taking her warfarin so that she could have a lithotripsy done. And daughter stated that she has been very compliant with her medications as she is checks on her every day and works with her medications. 01/24/22 0900 Was called by nursing and was informed the
--- NOTE | 2022-01-25 11:45 | PCSTNOTE ---
Bedside swallow study completed. Patient unable to answer questions or stay awake. Will attempt again tomorrow. Recommend NPO until bedside swallowing evaluation can be completed. Discussed with nurse and left message with doctor to return call.
--- NOTE | 2022-01-25 16:22 | WPDNEURCNPN ---
Assessment and Plan Assessment and plan (1) Stroke: Code(s): I63.9 - Cerebral infarction, unspecified Status: Acute (2) Right ureteral stone: Code(s): N20.1 - Calculus of ureter Status: Acute Plan documented abnormal MRI with moderate size region of restricted diffusion consistent with acute infarct involving the right temporal lobe and right temporoparietal region in addition to old infarct in left parietal lobe right temporal lobe bilateral cerebellar hemispheres and left thalamus though the study was limited T2 weighted images could not be obtained but again findings are suggestive of the bihemispheric disease clinically compatible with with obviously no further intervention is necessary she had an echocardiogram done which revealed small area of posterior lateral hypokinesis with mild tricuspid valvular regurgitation and mildly dilated ascending aorta 4cm size but no intracardiac clot she is receiving aspirin 81 mg daily along with apixaban 2.5 mg q.12 hours medications will be continued as such and further discharge planning according to her physical status Consult date: 01/25/22 HPI: Tracey Macedo is a 86 year old female Has been admitted to [facility] with the ongoing diagnosis of 1. Hypertension 2. Cerebrovascular accident 3. DVT and 4. Recent fall at present she is residing with her she was found on the ground by her daughter with her being very poor historian most of the history was [place] from the [employer] as per the information available the daughter went over to check on the patient and found her on the ground where she has been lying for at least 4 hours patient reportedly fell as the Rollator got ahead of her and she fell flat on her face she was unable to give any further information but she appeared to be in generalized pain she was also unable to lift her body up and sat up she was documented to have a large stone in the right ureter on CT scan for which Urology is were consulted. She has ongoing history of multiple medical problems which particularly include essential tremor, history of DVT, history of multiple cerebrovascular accidents, right-sided hydronephrosis with stone, long-term use of anticoagulants, she does have ongoing history of former smoker with end date of February 09, 2064 and also history of not alcohol intaker her medications included propranolol 40 mg q.12 hours Merle oxycodone 15 mg daily Coumadin 2.5 mg daily and initial evaluation in the emergency room revealed her to be afebrile with blood pressure 132/71 and routine lab studies were not significant EKG revealed sinus rhythm with occasional ventricular premature complexes but no AFib , x-rays documented 13x7mm stone at the right ureteropelvic junction CT scan of the head documented old infarct in left parietal lobe right thalamus bilateral cerebellar hemispheres and left thalamus she was also documented to have 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 and moderate left glenohumeral and mild acromial clavicular osteoarthritis, while in the hospital she appeared to have a left facial droop and left upper extremity weakness with repeat head CT scan not showing any acute bleed or major stroke, MRI pending and obviously she is not a candidate for tPA [facility] Past Medical History Medical History (Updated 01/25/22 @ 08:03 by Eliseo Rai APN-[facility]) Acute hemorrhagic cystitis Altered mental status Essential (primary) hypertension Essential tremor History of DVT (deep vein thrombosis) History of multiple cerebrovascular accidents (CVAs) Hydronephrosis, right 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
[2022-01-25] MEDS: APIXABAN 2.5 MG TABLET BY MOUTH (21:03)
[2022-01-26 02:00] VITALS: BP 118/66; PULSE 58; RESP 16; TEMP 36.3; O2SAT 94
[2022-01-26 05:32] LABS: Basophils Absolute Auto 0.1 K/mm3 (0.0-0.1); Basophils Percent Auto 0.7 % (0.2-1.2); Eosinophils Absolute Auto 0.1 K/mm3 (0-0.3); Hematocrit 42.8 % (37.0-47.0); Hemoglobin 14.2 g/dL (12.0-15.0); Immature Granulocyte Absolute 0.03 K/mm3 (0.00-0.031); Immature Granulocyte Percent A 0.4 % (0-0.5); Lymphocytes Percent Auto 15.2 % (18.3-44.2); Mean Corpuscular HGB Conc 33.2 g/dl (32-36); Mean Corpuscular Hemoglobin 34.2 pg (26-34); Mean Corpuscular Volume 103.1 fl (80-100); Mean Platelet Volume 10.7 fl (7.4-10.4); Monocytes Absolute Auto 0.9 K/mm3 (0.1-0.6); Monocytes Percent Auto 12.7 % (2.6-8.5); Neutrophils Absolute Auto 5.1 K/mm3 (1.3-6.7); Platelet Count Result 182 k/mm3 (150-375); Red Blood Count 4.15 M/mm3 (4.2-5.4); Red Cell Distribution Width 12.6 % (11.5-14.5); White Blood Count 7.3 K/mm3 (4.5-10.0)
[2022-01-26 05:39] LABS: Alanine Aminotransferase 20 U/L (6-35); Albumin Level 3.4 g/dL (3.5-5.1); Alkaline Phosphatase 72 U/L (38-126); Anion Gap 3 mmol/L (8-16); Aspartate Amino Transferase 33 U/L (14-36); Bilirubin,Total 1.9 mg/dL (0.2-1.3); Blood Urea Nitrogen 22 mg/dL (7-17); Calcium 9.1 mg/dL (8.4-10.2); Carbon Dioxide 31 mmol/L (22-30); Chloride 104 mmol/L (98-107); Cholesterol 165 mg/dL (0-200); Estimated CRCL calculation 34 ml/min; Estimated Glomerular Filt Rate 53; Glucose 83 mg/dL (65-110); HDL Direct 38 mg/dL; Potassium 3.8 mmol/L (3.4-5.0); Sodium 138 mmol/L (137-145); Triglycerides 149 mg/dL (<150)
[2022-01-26 05:45] LABS: INR 1.5; Prothrombin Time 17.5 Seconds (11.1-14.7)
[2022-01-26 05:46] LABS: Partial Thromboplastin Time 30.7 SECONDS (22.3-36.8)
[2022-01-26 05:50] LABS: LDL Cholesterol Direct 86 mg/dL
[2022-01-26 06:00] VITALS: BP 123/87; PULSE 57; RESP 20; TEMP 36.4; O2SAT 99
--- NOTE | 2022-01-26 06:45 | P.PNIM_ITS ---
Progress Note: A&P Assessment and Plan (1) Stroke: Code(s): I63.9 - Cerebral infarction, unspecified Status: Acute Assessment and Plan: * left facial droop and left upper extremity weakness noted on 01/24/22 * Facial droop is resolved * Head CT from 01/22/22 does not indicate any new findings * MRI of the brain moderate-sized region of restricted diffusion consistent with acute infarct involving the right temporal lobe and right temporal parietal region, old infarcts noted * See if patient can switch anticoagulation to Eliquis * Continue aspirin, statin * Carotid doppler ordered * Lipid panel triglycerides 149, cholesterol 165, LDL 86, HDL 38 * Does not appear to be eligible for tPA last known normal unknown, on warfarin, previous stroke noted, recent surgical procedure, >82 years old, here for fall * Does have a history of multiple infarctions involving the left parietal lobe, right thalamus, bilateral cerebral hemispheres and left thalamus * neurology consulted (2) Acute metabolic encephalopathy: Code(s): G93.41 - Metabolic encephalopathy Status: Acute Assessment and Plan: * A&O x4 seems to be improving * head CT shows no acute abnormalities * Urine culture preliminary is gram(-) bacilli * Brain MRI showed new stroke * Neuro consulted * Continue pramoxine for UTI * CK negative * Seems resolved (3) Right ureteral stone: Code(s): N20.1 - Calculus of ureter Status: Acute Assessment and Plan: * x-ray of the abdomen showed a 13 x 8 mm stone proximal right ureter without change * urology was consulted * Stent placed on 01/23/22 * trend urine output (4) UTI (urinary tract infection): Code(s): N39.0 - Urinary tract infection, site not specified Status: Acute Assessment and Plan: * UA does appear infectious * Urine culture E. 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 Patient stated that she was just very tired and went to sleep however she also stated that she was unable to sleep at this time. She is requesting something for sleep celeste
--- NOTE | 2022-01-26 06:45 | PM.IMPN ---
Progress Note: A&P Assessment and Plan (1) Stroke: Code(s): I63.9 - Cerebral infarction, unspecified Status: Acute Assessment and Plan: left facial droop and left upper extremity weakness noted on 01/24/22 Facial droop is resolved Head CT from 01/22/22 does not indicate any new findings MRI of the brain moderate-sized region of restricted diffusion consistent with acute infarct involving the right temporal lobe and right temporal parietal region, old infarcts noted See if patient can switch anticoagulation to Eliquis Continue aspirin, statin Carotid doppler ordered Lipid panel triglycerides 149, cholesterol 165, LDL 86, HDL 38 Does not appear to be eligible for tPA last known normal unknown, on warfarin, previous stroke noted, recent surgical procedure, >82 years old, here for fall Does have a history of multiple infarctions involving the left parietal lobe, right thalamus, bilateral cerebral hemispheres and left thalamus neurology consulted (2) Acute metabolic encephalopathy: Code(s): G93.41 - Metabolic encephalopathy Status: Acute Assessment and Plan: A&O x4 seems to be improving head CT shows no acute abnormalities Urine culture preliminary is gram(-) bacilli Brain MRI showed new stroke Neuro consulted Continue pramoxine for UTI CK negative Seems resolved (3) Right ureteral stone: Code(s): N20.1 - Calculus of ureter Status: Acute Assessment and Plan: x-ray of the abdomen showed a 13 x 8 mm stone proximal right ureter without change urology was consulted Stent placed on 01/23/22 trend urine output (4) UTI (urinary tract infection): Code(s): N39.0 - Urinary tract infection, site not specified Status: Acute Assessment and Plan: UA does appear infectious Urine culture E. Coli grew Continue Primaxin Adjust therapy as indicated (5) Essential (primary) hypertension: Code(s): I10 - Essential (primary) hypertension Status: Acute Assessment and Plan: Current BP 118/66 Continue Home propranolol, reduce lisinopril to 2.5mg PO Trend Blood pressure Adjust therapy as indicated (6) Fall: Code(s): W19.XXXA - Unspecified fall, initial encounter Status: Acute Assessment and Plan: patient endorses a fall head CT was negative for any acute abnormalities Head MRI indicated new stroke PT and OT ordered fall precautions (7) intermediate (current) use of anticoagulants: Code(s): Z79.01 - intermediate (current) use of anticoagulants Status: Acute Assessment and Plan: history of a DVT Continue Eliquis 2.5mg INR subtherapeutic at 1.2, remains 1.5 today Continue to trend labs Adjust dosing as appropriate Time Spent With Patient Time with patient: Greater than 35 minutes Subjective Date/time seen: 01/26/22 06:45 Interval history: 01/26/22 0645 Patient was lying in bed and was alert oriented x3. Patient stated that she was just very tired and went to sleep however she also stated that she was unable to sleep at this time. She is requesting something for sleep however I let her know that she can not. Daughter was also present and stated the patient had no complaints except for that she was tired. Talked to the daughter about make sure patient was alert whenever speech came into swallow study. Patient appears comfortable at this time. 01/25/22 1115 Patient stated that she feels better today. She did state that her knees hurt. She has no feeling in the left side including the face the arm and the leg. She was able sit on the side the bed for short period times a day. She denies any chest pain, shortness a breath, nausea, vomiting, diarrhea or constipation. She does have a bit of a swallowing defect with straws. At
[2022-01-26] MEDS: ACETAMINOPHEN 325 MG TABLET 650 MG PO (09:15)
[2022-01-26] MEDS: DOCUSATE SODIUM 100 MG CAPSULE 200 MG PO ×2 (09:16→17:06)
[2022-01-26] MEDS: lisinopriL 2.5 MG TABLET PO (09:16)
[2022-01-26] MEDS: polyethylene glycoL 3350 17 GM POWD.PACK PO (09:16)
[2022-01-26 09:17] VITALS: PULSE 57
[2022-01-26] MEDS: APIXABAN 2.5 MG TABLET BY MOUTH ×2 (09:17→21:07)
[2022-01-26] MEDS: ATORVASTATIN 40 MG TABLET PO (09:17)
[2022-01-26] MEDS: ASPIRIN 81 MG ENTERIC TABLET PO (09:17)
[2022-01-26] MEDS: PROPRANOLOL HCL 40 MG TABLET PO ×2 (09:17→21:07)
--- NOTE | 2022-01-26 11:42 | PCNFU ---
Nutrition Follow-Up Complete: Unintended weight loss as related to AMS as evidenced by 13% weight loss in the past 3 months. Goal: Adequate Intake of at least 75% of meals/supplements Patient is not meeting goal at this time. Will continue current goal. Pt current nutrition is NPO. Last recorded weight is 71.3 kg. Bowel Motility:No BM reported. Labs Reviewed:Alb 3.4 Meds Noted:Colace, Miralax, Eliquis. Skin: WNL Additional Notes: Patient is NPO at this time. Plans for Speech eval today. Will monitor for further diet orders. Will monitor every 3 days.
--- NOTE | 2022-01-26 11:59 | PCSTNOTE ---
Please refer to the Bedside Swallow Evaluation in the EMR. Please note, silent aspiration cannot be ruled out at bedside.
[2022-01-26 12:30] VITALS: BP 127/73; PULSE 57; RESP 20; TEMP 36; O2SAT 96
--- NOTE | 2022-01-26 14:11 | PCPTNOTE ---
Patient refused treatment this session. Patient reported she wants to rest, per RN and patient's family patient has been very sleepy.
[2022-01-26] MEDS: ERTAPENEM 1 GM/NS 50 ML 1 GM/50 ML BAG IVPB (14:15)
[2022-01-26 21:07] VITALS: PULSE 57
[2022-01-26 22:02] VITALS: BP 133/89; PULSE 64; RESP 18; TEMP 36.7; O2SAT 96
[2022-01-27] VITALS (8 sets, daily range): BP systolic 96–134; BP diastolic 58–79; PULSE 58–98; RESP 16–20; TEMP 36.2–36.9; O2SAT 85–98
[2022-01-27 05:23] LABS: Basophils Absolute Auto 0.1 K/mm3 (0.0-0.1); Basophils Percent Auto 0.6 % (0.2-1.2); Eosinophils Absolute Auto 0.2 K/mm3 (0-0.3); Hematocrit 44.9 % (37.0-47.0); Hemoglobin 14.5 g/dL (12.0-15.0); Immature Granulocyte Absolute 0.04 K/mm3 (0.00-0.031); Immature Granulocyte Percent A 0.5 % (0-0.5); Lymphocytes Absolute Auto 1.37 K/mm3 (0.9-3.2); Lymphocytes Percent Auto 17.5 % (18.3-44.2); Mean Corpuscular HGB Conc 32.3 g/dl (32-36); Mean Corpuscular Hemoglobin 33.3 pg (26-34); Mean Platelet Volume 11.2 fl (7.4-10.4); Monocytes Absolute Auto 0.9 K/mm3 (0.1-0.6); Monocytes Percent Auto 11.5 % (2.6-8.5); Neutrophils Absolute Auto 5.3 K/mm3 (1.3-6.7); Neutrophils Percent Auto 67.9 % (45.5-73.1); Platelet Count Result 213 k/mm3 (150-375); Red Blood Count 4.36 M/mm3 (4.2-5.4); Red Cell Distribution Width 12.7 % (11.5-14.5); White Blood Count 7.9 K/mm3 (4.5-10.0)
[2022-01-27 05:31] LABS: Alanine Aminotransferase 19 U/L (6-35); Albumin Level 3.5 g/dL (3.5-5.1); Alkaline Phosphatase 70 U/L (38-126); Anion Gap 4 mmol/L (8-16); Aspartate Amino Transferase 36 U/L (14-36); Bilirubin,Total 1.8 mg/dL (0.2-1.3); Blood Urea Nitrogen 26 mg/dL (7-17); Calcium 9.6 mg/dL (8.4-10.2); Carbon Dioxide 29 mmol/L (22-30); Chloride 104 mmol/L (98-107); Estimated CRCL calculation 34 ml/min; Estimated Glomerular Filt Rate 53; Glucose 85 mg/dL (65-110); Magnesium 2.1 mg/dL (1.6-2.3); Sodium 137 mmol/L (137-145)
[2022-01-27] MEDS: ATORVASTATIN 40 MG TABLET PO (08:35)
[2022-01-27] MEDS: ASPIRIN 81 MG ENTERIC TABLET PO (08:35)
[2022-01-27] MEDS: APIXABAN 2.5 MG TABLET BY MOUTH ×2 (08:35→21:00)
[2022-01-27] MEDS: lisinopriL 2.5 MG TABLET PO (08:35)
[2022-01-27] MEDS: PROPRANOLOL HCL 40 MG TABLET PO ×2 (08:35→21:00)
[2022-01-27] MEDS: ERTAPENEM 1 GM/NS 50 ML 1 GM/50 ML BAG IVPB (08:36)
--- NOTE | 2022-01-27 08:36 | PCOTNOTE ---
Attempted to see patient, patient swatting with L hand slightly. Patient appears slightly agitated, per RN, patient calling out saying No when asked to take meds. Will try to see patient later for OT.
[2022-01-27] MEDS: ONDANSETRON INJ 4 MG/2 ML VIAL IV PUSH (09:08)
[2022-01-27 09:55] LABS: Glucose Point of Care 119 mg/dl (65-105)
--- NOTE | 2022-01-27 10:15 | PM.IMPN ---
Progress Note: A&P Assessment and Plan (1) Stroke: Code(s): I63.9 - Cerebral infarction, unspecified Status: Acute Assessment and Plan: left facial droop and left upper extremity weakness noted on 01/24/22 Facial droop is resolved Head CT from 01/22/22 does not indicate any new findings MRI of the brain moderate-sized region of restricted diffusion consistent with acute infarct involving the right temporal lobe and right temporal parietal region, old infarcts noted See if patient can switch anticoagulation to Eliquis Continue aspirin, statin Carotid doppler <50% stenosis bilaterally Echo 65-70% with grade 2 diastolic dysfunction Lipid panel triglycerides 149, cholesterol 165, LDL 86, HDL 38 Does not appear to be eligible for tPA last known normal unknown, on warfarin, previous stroke noted, recent surgical procedure, >82 years old, here for fall Does have a history of multiple infarctions involving the left parietal lobe, right thalamus, bilateral cerebral hemispheres and left thalamus neurology consulted (2) Acute metabolic encephalopathy: Code(s): G93.41 - Metabolic encephalopathy Status: Acute Assessment and Plan: A&O x4 seems to be improving head CT shows no acute abnormalities Urine culture preliminary is gram(-) bacilli Brain MRI showed new stroke Neuro consulted Continue pramoxine for UTI CK negative Seems resolved (3) Right ureteral stone: Code(s): N20.1 - Calculus of ureter Status: Acute Assessment and Plan: x-ray of the abdomen showed a 13 x 8 mm stone proximal right ureter without change urology was consulted Stent placed on 01/23/22 trend urine output (4) UTI (urinary tract infection): Code(s): N39.0 - Urinary tract infection, site not specified Status: Acute Assessment and Plan: UA does appear infectious Urine culture E. Coli grew Change Primaxin to ertapenem in anticipation of discharge, will need total of ten days currently on day 3 (stop date should be 02/03/22) Adjust therapy as indicated (5) Essential (primary) hypertension: Code(s): I10 - Essential (primary) hypertension Status: Acute Assessment and Plan: Current BP 134/78 Continue Home propranolol, stop lisinopril to 2.5mg PO as her BP does get low in the late morning Trend Blood pressure Adjust therapy as indicated (6) Fall: Code(s): W19.XXXA - Unspecified fall, initial encounter Status: Acute Assessment and Plan: patient endorses a fall head CT was negative for any acute abnormalities Head MRI indicated new stroke PT and OT ordered fall precautions (7) USP (current) use of anticoagulants: Code(s): Z79.01 - USP (current) use of anticoagulants Status: Acute Assessment and Plan: history of a DVT Continue Eliquis 2.5mg INR subtherapeutic at 1.2, remains 1.5 today Continue to trend labs Adjust dosing as appropriate Time Spent With Patient Time with patient: Greater than 35 minutes Subjective Date/time seen: 01/27/22 1015 Interval history: 01/27/22 1015 Patient is having some nausea today. However she has not had a bowel movement since she has been here. She also had a hard time taking her meds today as she did not want them. She looks very tired and lethargic today. Daughter was present along with her son. All questions were answered and plan of care was updated. she denies any chest pain, shortness a breath, diarrhea, weakness or fatigue. Will get the patient some prune juice and added a suppository to help promote a bowel movement. 01/26/22 0645 Patient was lying in bed and was alert oriented x3. Patient stated that she was just very tired and went to sleep however she also stated that she was unable
--- NOTE | 2022-01-27 10:15 | P.PNIM_ITS ---
Progress Note: A&P Assessment and Plan (1) Stroke: Code(s): I63.9 - Cerebral infarction, unspecified Status: Acute Assessment and Plan: * left facial droop and left upper extremity weakness noted on 01/24/22 * Facial droop is resolved * Head CT from 01/22/22 does not indicate any new findings * MRI of the brain moderate-sized region of restricted diffusion consistent with acute infarct involving the right temporal lobe and right temporal parietal region, old infarcts noted * See if patient can switch anticoagulation to Eliquis * Continue aspirin, statin * Carotid doppler <50% stenosis bilaterally * Echo 65-70% with grade 2 diastolic dysfunction * Lipid panel triglycerides 149, cholesterol 165, LDL 86, HDL 38 * Does not appear to be eligible for tPA last known normal unknown, on warfarin, previous stroke noted, recent surgical procedure, >82 years old, here for fall * Does have a history of multiple infarctions involving the left parietal lobe, right thalamus, bilateral cerebral hemispheres and left thalamus * neurology consulted (2) Acute metabolic encephalopathy: Code(s): G93.41 - Metabolic encephalopathy Status: Acute Assessment and Plan: * A&O x4 seems to be improving * head CT shows no acute abnormalities * Urine culture preliminary is gram(-) bacilli * Brain MRI showed new stroke * Neuro consulted * Continue pramoxine for UTI * CK negative * Seems resolved (3) Right ureteral stone: Code(s): N20.1 - Calculus of ureter Status: Acute Assessment and Plan: * x-ray of the abdomen showed a 13 x 8 mm stone proximal right ureter without change * urology was consulted * Stent placed on 01/23/22 * trend urine output (4) UTI (urinary tract infection): Code(s): N39.0 - Urinary tract infection, site not specified Status: Acute Assessment and Plan: * UA does appear infectious * Urine culture E. Coli grew * Change Primaxin to ertapenem in anticipation of discharge, will need total of ten days currently on day 3 (stop date should be 02/03/22) * Adjust therapy as indicated (5) Essential (primary) hypertension: Code(s): I10 - Essential (primary) hypertension Status: Acute Assessment and Plan: * Current BP 134/78 * Continue Home propranolol, stop lisinopril to 2.5mg PO as her BP does get low in the late morning * Trend Blood pressure * Adjust therapy as indicated (6) Fall: Code(s): W19.XXXA - Unspecified fall, initial encounter Status: Acute Assessment and Plan: * patient endorses a fall * head CT was negative for any acute abnormalities * Head MRI indicated new stroke * PT and OT ordered * fall precautions (7) [facility] (current) use of anticoagulants: Code(s): 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
[2022-01-27] MEDS: BISACODYL 10 MG SUPPOSITORY RECTAL (12:14)
--- NOTE | 2022-01-27 13:32 | PCPTNOTE ---
Attempted therapy session, Pt was agitated and did not want to participate. She stated Oh help me God. Asked Pt if she was in pain and Pt shrugged. Pt then stated I am going to fall. Reassured Pt she is in bed and will not fall. Assisted with readjusting Pt in bed to make her feel more secure. Will continue per POC.
[2022-01-27] MEDS: DOCUSATE SODIUM 100 MG CAPSULE 200 MG PO (18:04)
[2022-01-28] VITALS (10 sets, daily range): BP systolic 92–132; BP diastolic 57–70; PULSE 71–78; RESP 12–16; TEMP 36.5–37.2; O2SAT 86–94
[2022-01-28 06:07] LABS: Basophils Absolute Auto 0.1 K/mm3 (0.0-0.1); Basophils Percent Auto 0.6 % (0.2-1.2); Eosinophils Absolute Auto 0.1 K/mm3 (0-0.3); Hematocrit 47.4 % (37.0-47.0); Hemoglobin 15.7 g/dL (12.0-15.0); Immature Granulocyte Absolute 0.06 K/mm3 (0.00-0.031); Immature Granulocyte Percent A 0.5 % (0-0.5); Mean Corpuscular HGB Conc 33.1 g/dl (32-36); Mean Corpuscular Hemoglobin 33.2 pg (26-34); Mean Corpuscular Volume 100.2 fl (80-100); Monocytes Percent Auto 9.4 % (2.6-8.5); Neutrophils Absolute Auto 8.6 K/mm3 (1.3-6.7); Neutrophils Percent Auto 78.5 % (45.5-73.1); Platelet Count Result 235 k/mm3 (150-375); Red Blood Count 4.73 M/mm3 (4.2-5.4); Red Cell Distribution Width 12.9 % (11.5-14.5)
[2022-01-28 06:25] LABS: Alanine Aminotransferase 20 U/L (6-35); Albumin Level 3.7 g/dL (3.5-5.1); Alkaline Phosphatase 86 U/L (38-126); Anion Gap 3 mmol/L (8-16); Aspartate Amino Transferase 37 U/L (14-36); Bilirubin,Total 1.4 mg/dL (0.2-1.3); Blood Urea Nitrogen 32 mg/dL (7-17); Calcium 9.9 mg/dL (8.4-10.2); Carbon Dioxide 32 mmol/L (22-30); Chloride 104 mmol/L (98-107); Estimated CRCL calculation 38 ml/min; Estimated Glomerular Filt Rate 60; Glucose 106 mg/dL (65-110); Magnesium 2.3 mg/dL (1.6-2.3); Potassium 3.7 mmol/L (3.4-5.0); Sodium 139 mmol/L (137-145)
[2022-01-28] MEDS: ERTAPENEM 1 GM/NS 50 ML 1 GM/50 ML BAG IVPB (08:49)
[2022-01-28] MEDS: PROPRANOLOL HCL 40 MG TABLET PO (08:50)
[2022-01-28] MEDS: DOCUSATE SODIUM 100 MG CAPSULE 200 MG PO (08:50)
[2022-01-28] MEDS: ASPIRIN 81 MG ENTERIC TABLET PO (08:50)
[2022-01-28] MEDS: APIXABAN 2.5 MG TABLET BY MOUTH (08:50)
[2022-01-28] MEDS: ATORVASTATIN 40 MG TABLET PO (08:50)
[2022-01-28] MEDS: LIDOCAINE HCL 1% LOCAL INJ 2 ML AMPUL 5 ML INFILTRATE (09:30)
[2022-01-28] MEDS: SALINE LOCK FLUSH 10 ML IV PUSH ×2 (13:33→22:17)
--- NOTE | 2022-01-28 13:56 | P.PNIM_ITS ---
Progress Note: A&P Assessment and Plan (1) Stroke: Code(s): I63.9 - Cerebral infarction, unspecified Status: Acute Assessment and Plan: * left facial droop and left upper extremity weakness noted on 01/24/22 * Facial droop is resolved * Head CT from 01/22/22 does not indicate any new findings * MRI of the brain moderate-sized region of restricted diffusion consistent with acute infarct involving the right temporal lobe and right temporal parietal region, old infarcts noted * Patient started on Eliquis 2.5 mg q.12 hour * Continue aspirin, statin * Carotid doppler <50% stenosis bilaterally * Echo 65-70% with grade 2 diastolic dysfunction * Lipid panel triglycerides 149, cholesterol 165, LDL 86, HDL 38 * Does not appear to be eligible for tPA last known normal unknown, on warfarin, previous stroke noted, recent surgical procedure, >82 years old, here for fall * Does have a history of multiple infarctions involving the left parietal lobe, right thalamus, bilateral cerebral hemispheres and left thalamus * neurology consulted, have completed workup, and have discharge patient. * Speech therapy consulted (2) Acute metabolic encephalopathy: Code(s): G93.41 - Metabolic encephalopathy Status: Acute Assessment and Plan: * Neuro assessment unable to be conducted due to patient being unable to answer any questions. * head CT shows no acute abnormalities * Urine culture preliminary is gram(-) bacilli * Brain MRI showed new stroke * Neuro consulted * Continue pramoxine for UTI * CK negative * Seems resolved (3) Right ureteral stone: Code(s): N20.1 - Calculus of ureter Status: Acute Assessment and Plan: * x-ray of the abdomen showed a 13 x 8 mm stone proximal right ureter without change * urology was consulted * Stent placed on 01/23/22 * Analgesics for pain * trend urine output (4) UTI (urinary tract infection): Code(s): N39.0 - Urinary tract infection, site not specified Status: Acute Assessment and Plan: * UA does appear infectious * Urine culture grew E coli * Change Primaxin to ertapenem in anticipation of discharge, will need total of ten days currently on day 3 (stop date should be 02/03/22) * Midline placed today. Although patient was unable to receive antibiotic through the midline today. * Patient is to receive antibiotic through her midline tomorrow and plan to be discharged pending no further complications. 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
--- NOTE | 2022-01-28 13:56 | PM.IMPN ---
Progress Note: A&P Assessment and Plan (1) Stroke: Code(s): I63.9 - Cerebral infarction, unspecified Status: Acute Assessment and Plan: left facial droop and left upper extremity weakness noted on 01/24/22 Facial droop is resolved Head CT from 01/22/22 does not indicate any new findings MRI of the brain moderate-sized region of restricted diffusion consistent with acute infarct involving the right temporal lobe and right temporal parietal region, old infarcts noted Patient started on Eliquis 2.5 mg q.12 hour Continue aspirin, statin Carotid doppler <50% stenosis bilaterally Echo 65-70% with grade 2 diastolic dysfunction Lipid panel triglycerides 149, cholesterol 165, LDL 86, HDL 38 Does not appear to be eligible for tPA last known normal unknown, on warfarin, previous stroke noted, recent surgical procedure, >80 years old, here for fall Does have a history of multiple infarctions involving the left parietal lobe, right thalamus, bilateral cerebral hemispheres and left thalamus neurology consulted, have completed workup, and have discharge patient. Speech therapy consulted (2) Acute metabolic encephalopathy: Code(s): G93.41 - Metabolic encephalopathy Status: Acute Assessment and Plan: Neuro assessment unable to be conducted due to patient being unable to answer any questions. head CT shows no acute abnormalities Urine culture preliminary is gram(-) bacilli Brain MRI showed new stroke Neuro consulted Continue pramoxine for UTI CK negative Seems resolved (3) Right ureteral stone: Code(s): N20.1 - Calculus of ureter Status: Acute Assessment and Plan: x-ray of the abdomen showed a 13 x 8 mm stone proximal right ureter without change urology was consulted Stent placed on 01/23/22 Analgesics for pain trend urine output (4) UTI (urinary tract infection): Code(s): N39.0 - Urinary tract infection, site not specified Status: Acute Assessment and Plan: UA does appear infectious Urine culture grew E coli Change Primaxin to ertapenem in anticipation of discharge, will need total of ten days currently on day 3 (stop date should be 02/03/22) Midline placed today. Although patient was unable to receive antibiotic through the midline today. Patient is to receive antibiotic through her midline tomorrow and plan to be discharged pending no further complications. 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 Time with patient: Greater than 35 minutes Subjective Date/time seen: 01/28/22 13:56 Interval history: 01/28/22 86-year-old female with a history of CVA, frequent falls and hypertension. Patient unable to answer my questions while being interviewed. Patient is very drowsy and able to wake but it is very confused upon
--- NOTE | 2022-01-28 14:37 | PCOTNOTE ---
Attempted to see pt. for occupational therapy, however, pt would not answer therapist questions or encouragement to participate in session. Pt would continuously states It hurts and hold out and swing RUE. Per RN, pt had a midline placed in RUE earlier today and is refusing all medication, food, and drink. Pt's daughter and and sister were present and also attempting to encourage pt to participate in therapy, however, pt continues to refuse. Will continue per POC duration/frequency tomorrow.
[2022-01-29 00:14] VITALS: BP 111/69; PULSE 73; RESP 16; TEMP 36.6; O2SAT 86
[2022-01-29 05:08] VITALS: BP 156/71; PULSE 68; RESP 16; TEMP 36.6; O2SAT 92
[2022-01-29 05:31] LABS: Hematocrit 44.3 % (37.0-47.0); Hemoglobin 14.4 g/dL (12.0-15.0); Mean Corpuscular HGB Conc 32.5 g/dl (32-36); Mean Corpuscular Hemoglobin 33.2 pg (26-34); Mean Corpuscular Volume 102.1 fl (80-100); Mean Platelet Volume 10.7 fl (7.4-10.4); Platelet Count Result 199 k/mm3 (150-375); Red Blood Count 4.34 M/mm3 (4.2-5.4); White Blood Count 10.6 K/mm3 (4.5-10.0)
[2022-01-29] MEDS: SALINE LOCK FLUSH 10 ML IV PUSH (05:32)
--- NOTE | 2022-01-29 05:33 | PC.NURSE ---
Pt has been swatting her hands and cursing when giving meds, turning, and blood draws.
[2022-01-29 05:41] LABS: Anion Gap 4 mmol/L (8-16); Blood Urea Nitrogen 36 mg/dL (7-17); Calcium 9.3 mg/dL (8.4-10.2); Carbon Dioxide 30 mmol/L (22-30); Chloride 109 mmol/L (98-107); Estimated CRCL calculation 38 ml/min; Estimated Glomerular Filt Rate 60; Glucose 91 mg/dL (65-110); Potassium 3.6 mmol/L (3.4-5.0); Sodium 143 mmol/L (137-145)
[2022-01-29 08:00] VITALS: O2SAT 92
[2022-01-29] MEDS: ERTAPENEM 1 GM/NS 50 ML 1 GM/50 ML BAG IVPB (08:10)
--- NOTE | 2022-01-29 08:30 | PM.DS ---
DS: Admitting Diagnosis Discharge Date 01/29/22 Admitting Diagnosis Fall, CVA, UTI DS: Discharge Diagnosis Discharge Diagnosis (1) Stroke: Code(s): I63.9 - Cerebral infarction, unspecified Status: Acute (2) Acute metabolic encephalopathy: Code(s): G93.41 - Metabolic encephalopathy Status: Acute (3) Right ureteral stone: Code(s): N20.1 - Calculus of ureter Status: Acute (4) UTI (urinary tract infection): Code(s): N39.0 - Urinary tract infection, site not specified Status: Acute (5) Essential (primary) hypertension: Code(s): I10 - Essential (primary) hypertension Status: Acute (6) Fall: Code(s): W19.XXXA - Unspecified fall, initial encounter Status: Acute (7) intermediate (current) use of anticoagulants: 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 Patient brought to the ER due to being found on the ground by her daughter. Patient lives independently with her who has dementia and the mechanism of the fall unknown. Patient was on the ground for approximately [address] scan of the abdomen and pelvis revealed partially obstructing 10 mm right proximal ureteral stone. Patient was scheduled for outpatient ESWL on the morning of ER presentation. Patient had ESWL stent placement in right ureter. CT head revealed no fracture or acute intracranial process, old infarcts in the left parietal lobe, right thalamus, bilateral cerebellar hemispheres and left thalamus. Patient appeared to have left facial droop and upper extremity weakness thus prompting CT of brain and MRI of the brain. Patient not eligible for tPA since last known normal unknown, on warfarin with a previous stroke and recent surgical procedure, greater than 80 years old and also here for a fall. Neurology consulted. MRI of the brain revealed moderate sized region of restricted diffusion consistent with acute infarct involving the right temporal lobe and right temporoparietal region with old infarcts noted. Patient was started on Eliquis and aspirin and warfarin was held. Patient underwent echocardiogram revealing small area of posterior lateral hypokinesis with mild tricuspid valvular regurgitation and mildly dilated ascending aorta 4 cm in size but no intracardiac clot. Neurology did not think it necessary to undergo any further intervention. Patient's lipid panel revealed triglycerides 149, cholesterol 165, LDL 86, HDL 38. Patient put on atorvastatin 40 mg once a day. Speech therapy was consulted on the patient although patient refused to work with speech therapy. Patient has declined since stroke diagnosis by not wanting to eat or take medication. Patient's daughter revealed that patient seems to have given up in his make comments to suggest this as well. Had long discussion with patient's daughter regarding hospice in future options. Discussed that if patient is not willing to eat that we can insert feeding tube and she was not wanting to do that at this time. Patient's daughter more comfortable with monitoring her mother and not making any drastic decisions such as feeding to placement. Discussed it can take up to 6 weeks for stroke symptoms to either better, stay the same, or worsen. I answered all of the family's questions to the best of my ability and they verbalized their understanding. Patient found to have UTI on UA. Patient originally put on Cipro and changed to Levaquin once UA preliminary results showed Gram-negative bacilli. Urine culture revealed E coli and patient was put on ertapenem 1g daily. Midline placed and patient is going to be sent home with midline placement and completion of a total of 10 day antibiotic therapy. Urology is suggesting patient follow-up with them in 2 3 weeks. Time
--- NOTE | 2022-01-29 08:54 | WPDUROPN2 ---
Progress Note: A&P Assessment and Plan (1) Stroke: Code(s): I63.9 - Cerebral infarction, unspecified Status: Acute (2) Right ureteral stone: Code(s): N20.1 - Calculus of ureter Status: Acute Assessment and Plan: Neurological event following recent stent placement. Patient now anticoagulated with Eliquis. Definitive management for her 1 cm right upper urinary tract stone may not require an endoscopic approach as opposed to ESWL. Patient should follow-up with us in 2-3 weeks at which time we will plan definitive intervention. Subjective Subjective Date/Time Seen: 01/29/22 08:54 Events/improvement noted Review of Systems Cardiovascular: Cardiovascular: Denies chest pain, Denies lightheadedness, Denies palpitations and Denies dyspnea Respiratory: Respiratory: Denies dyspnea Gastrointestinal: Gastrointestinal: Denies diarrhea, Denies nausea and Denies vomiting Genitourinary: Genitourinary: Denies hematuria and Denies dysuria Endocrine: Endocrine: Denies palpitations Exam Const: General: no acute distress Resp: Effort & Inspection: normal respiratory effort GI: Inspection: non-distended GI Palp: No abdominal tenderness and No Guarding due to palpation present (GI) Auscultation: normal bowel sounds Objective Data Vital Signs Vital Signs: Vital Signs - 24 hr 01/28/22 09:00 01/28/22 10:35 01/28/22 14:49 Temperature 98.0 F Pulse Rate 73 Respiratory Rate 12 Blood Pressure 92/58 L Pulse Oximetry 91 91 91 Oxygen Delivery Room Air Nasal Cannula Oxygen Flow Rate 2 01/28/22 14:40 01/28/22 18:30 01/28/22 21:40 Temperature 97.7 F 99.0 F 98.0 F Pulse Rate 77 78 78 Respiratory Rate 14 14 16 Blood Pressure 132/69 104/66 125/70 Pulse Oximetry 92 94 90 Oxygen Delivery Oxygen Flow Rate 01/28/22 22:14 01/29/22 00:14 01/28/22 22:10 Temperature 97.8 F Pulse Rate 78 73 Respiratory Rate 16 Blood Pressure 111/69 Pulse Oximetry 86 L 86 L Oxygen Delivery Nasal Cannula Oxygen Flow Rate 2.5 01/29/22 05:08 Temperature 97.8 F Pulse Rate 68 Respiratory Rate 16 Blood Pressure 156/71 H Pulse Oximetry 92 Oxygen Delivery Oxygen Flow Rate Intake/Output Intake/Output: Intake & Output 01/26/22 01/27/22 01/28/22 01/29/22 23:59 23:59 23:59 23:59 Intake Total 150 100 265 230 Output Total 200 Balance -50 100 265 230 Meds/Results Medications: Active Medications Generic Name Dose Route Start Last Admin Trade Name Freq PRN Reason Stop Dose Admin Hydrocodone Bitart/Acetaminophen 1 tab 01/23/22 16:10 01/25/22 21:01 Hydrocodone/Acetaminophen (*Crx) 5-325 Mg Tablet PO 1 tab Q4H PRN Administration Moderate Pain (4-10) Apixaban 2.5 mg 01/25/22 21:00 01/28/22 22:14 Apixaban 2.5 Mg Tablet BY MOUTH Not Given Q12HR ANKUR Aspirin 81 mg 01/25/22 09:00 01/28/22 08:50 Aspirin 81 Mg Enteric Tablet PO 81 mg QAM ANKUR Administration Atorvastatin Calcium 40 mg 01/25/22 09:00 01/28/22 08:50 Atorvastatin 40 Mg Tablet PO 40 mg DAILY ANKUR Administration Docusate Sodium 200 mg 01/23/22 17:00 01/28/22 16:59 Docusate Sodium 100 Mg Capsule PO Not Given BID ANKUR Ertapenem 1 gm in 50 mls @ 100 mls/hr 01/26/22 13:15 01/29/22 08:10 Invanz 1 Gm/Ns 50 Ml IVPB 100 mls/hr QAM ANKUR Administration Acetaminophen 650 mg in 65 mls @ 260 mls/hr 01/28/22 18:00 01/29/22 05:55 Ofirmev 650 Mg Ivpb IVPB 01/29/22 17:59 Infused Q6HR ANKUR Infusion Sodium Chloride 500 mls @ 100 mls/hr 01/29/22 08:22 Normal Saline Iv IV CONT 01/29/22 13:21 .Q5H ONE Ondansetron HCl 4 mg 01/23/22 02:22 01/27/22 09:08 Ondansetron Inj 4 Mg/2 Ml Vial IV PUSH 4 mg Q4H PRN Administration Nausea Polyethylene Glycol 17 gm 01/23/22 16:11 01/26/22 09:16 Polyethylene Glycol 3350 17 Gm Powd.Pack PO 17 gm QAM PRN Administration constipation Propranolol HCl 40 mg 01/23/22 21:00 1
[2022-01-29] MEDS: SODIUM CHLORIDE 0.9% IV 500 ML 100 ML IV CONT (09:26)
[2022-01-29 10:00] VITALS: BP 150/80; PULSE 72; RESP 16; TEMP 36.1; O2SAT 96
--- NOTE | 2022-01-29 11:42 | PCSTNOTE ---
Therapist spoke with nurse who reported patient is refusing her medicine. Therapist spoke with daughter who stated that patient has been refusing food and drink for her except for several small sips of lemonade last night. The Bedside Swallow Evaluation was not completed as it is expected patient will refuse testing material for therapist. Therapist contacted [facility], to discuss discontinuing this Bedside Swallow Evaluation order due to patient refusal. Awaiting notification.
--- NOTE | 2022-01-29 12:58 | PCNFU ---
Nutrition Follow-Up Complete: Unintended weight loss as related to AMS as evidenced by 13% weight loss in the past 3 months. Goal: Adequate Intake of at least 75% of meals/supplements Patient has limited progress towards goal. We will continue current goal. Pt current nutrition is DBCC/Minced and Moist, Level 5. Last recorded weight is 71.3 kg. Bowel Motility:+Bm reported 01/28 Labs Reviewed:BUN 36 Meds Noted:NS Skin: WNL Additional Notes: Patient is current diet orders,Minced and Moist-Level 5 with Glucerna shakes BID. Patient is refusing Meds,meals as well as Bedside swallow evaluation. Spoke with Hospitalist, No plans for tube feedings. Plan is to discharge. Monitoring: Will monitor every 5 days.
== END 2022-01-29 13:40 | DRG 659 ==
LOC: ANHED 21:22 → ANH3MEDSUR 01-23 04:33 → ANHSURGERY 01-23 08:12 → ANH2MED 01-23 16:52
PROVIDERS: Internal Medicine Critical Care Medicine; Nurse Practitioner; Urology; Admitting Provider Internal Medicine; Emergency Provider Emergency Medicine; PCP Family Medicine Adolescent Medicine; Visit Provider Student in an Organized Health Care Education/Training Program
PROC: 0T778DZ Dilation of Left Ureter with Intraluminal Device, Via Natural or Artificial Opening Endoscopic (ICD-10-PCS; CPT 52352; principal; 2022-01-23 09:30)
DX: N13.6 Pyonephrosis (principal); G93.41 Metabolic encephalopathy; I63.9 Cerebral infarction, unspecified; B96.20 Unspecified Escherichia coli [E. coli] as the cause of diseases classified elsewhere; R29.810 Facial weakness; R53.1 Weakness; I10 Essential (primary) hypertension; W19.XXXA Unspecified fall, initial encounter; Z20.822 Contact with and (suspected) exposure to COVID-19; E78.5 Hyperlipidemia, unspecified; M17.11 Unilateral primary osteoarthritis, right knee; M16.11 Unilateral primary osteoarthritis, right hip; Z79.01 Long term (current) use of anticoagulants; Z86.718 Personal history of other venous thrombosis and embolism; Z86.73 Personal history of transient ischemic attack (TIA), and cerebral infarction without residual deficits; Z98.42 Cataract extraction status, left eye; Z98.41 Cataract extraction status, right eye; Z87.891 Personal history of nicotine dependence
CPT/HCPCS: 36415; 36569; 51701; 70450; 70551; 71045; 73030; 73080; 74018; 74420; 80048; 80053; 80061; 81001; 82550; 82948; 83605; 83735; 84484; 85025; 85027; 85610; 85730; 86140; 87040; 87077; 87086; 87088; 87186; 87637; 93005; 93306; 93880; 96361; 96366; 96372; 96374; 97110; 97162; 97165; 97530; 99285; A9270; C1751; C1758; C1769; C2617; G0378; J0131; J0743; J0744; J1100; J1335; J1650; J2405; J2704; J7030; J7040; J7120

== ENCOUNTER 2022-02-12 20:08 | Inpatient (IN) | payer MEDICARE, SELFPAY ==
--- NOTE | ~2022-02-12 | CT_ITS ---
EXAMINATION: CT abdomen pelvis wo con DATE: 02/12/2022 20:46 INDICATION: Abdominal pain TECHNIQUE: Computed tomography (CT) of the abdomen and pelvis was performed without intravenous contr ast. The dose-length product was 810.86 mGy-cm. Automated exposure control and iterative reconstructi on technique were employed. COMPARISON: CT dated 12/16/2021. FINDINGS: There is dependent atelectasis. Heart size normal. No significant pleural or pericardial ef fusion. There is atherosclerosis of the aorta and coronary arteries with mild ectasia of the iliac ar teries. There are cysts of the liver, unchanged. There is a rim calcified 1.8 cm cyst of the right ki dney. There is a right internal ureteral stent present with the proximal coil in the renal pelvis and distal coil in the bladder. There is a right UPJ stone measuring 12 mm craniocaudal x5 mm transverse . Bladder is decompressed. The spleen, pancreas, adrenal glands are unremarkable. There is a 2.2 cm l eft renal cyst. No lymphadenopathy. No free air or free fluid. Gallbladder is present. There is diver ticulosis of the colon without evidence for diverticulitis. No lymphadenopathy. No free fluid. There is a right inguinal hernia containing fat. There is severe lumbar spondylosis. Stable chronic mild co mpression fracture of L2. There is severe osteoarthritis of the hips. IMPRESSION: 1. Right UPJ stone measuring 12 x 5 mm. Right internal ureteral stent in expected position. Reviewed, dictated and finalized at location A. TLE THREADER IMPRESSION: 1. Right UPJ stone measuring 12 x 5 mm. Right internal ureteral stent in expect ed position.
--- NOTE | ~2022-02-12 | CT_ITS ---
EXAMINATION: CT brain wo con DATE: 02/13/2022 09:24 INDICATION: Altered mental status. TECHNIQUE: Computed tomography (CT) of the head was performed without intravenous contrast. The mA wa s adjusted according to patient size. Iterative reconstruction technique was employed. The dose-lengt h product was 605.33 mGy-cm. COMPARISON: Head CT 01/22/2022, brain MRI 01/24/2022 FINDINGS: There are old infarcts in the cerebellum bilaterally. There are subacute infarcts involving the right temporal lobe, posterior right insula, and right parietal lobe. There is an old infarct in left parietal lobe. There are old infarcts in the right caudate nucleus and left thalamus. There are scattered areas of low attenuation in the cerebral white matter, which is within normal limits for t he patient's age. The ventricles are normal in size. There are likely changes of ocular lens replacem ent surgeries. There is mild mucosal thickening in the paranasal sinuses. The mastoid air cells are n ormal. IMPRESSION: 1. Subacute infarcts in the right temporal lobe, posterior right insula, and right parietal lobe, unc hanged in distribution from 01/24/22. 2. Multiple old infarcts in the brain. Reviewed, dictated and finalized at location A. MENT THERAPIST IMPRESSION: 1. Subacute infarcts in the right temporal lobe, posterior right insula, and ri ght parietal lobe, unchanged in distribution from 01/24/22. 2. Multiple old infarcts in the brain.
--- NOTE | ~2022-02-12 | XR_ITS ---
XR chest 1V portable 02/14/2022 10:59 Indication: Confirm PICC line placement Procedure: AP portable chest Comparison: 02/12/2022 Findings: PICC line tip in the right axillary vein. Left basilar infiltrates, most likely atelectasis . No edema or pleural effusion. No acute osseous abnormality. Impression: 1: Left basilar infiltrates, most likely atelectasis. Pneumonia less favored although not excluded. 2: PICC line tip in the right axillary vein. Reviewed, dictated and finalized at location A. RE POLISHER Impression: 1: Left basilar infiltrates, most likely atelectasis. Pneumonia less favored al though not excluded. 2: PICC line tip in the right axillary vein.
--- NOTE | ~2022-02-12 | XR_ITS ---
XR abdomen/kub 1V 02/13/2022 14:41 Indication: Right UPJ stone Procedure: KUB Comparison: 01/23/2022 Findings: There is a stable right UPJ stone measuring approximately 1.5 x 0.9 cm. Bowel gas pattern n onobstructive. There are several pelvic phleboliths. There are severe lumbar spondylosis and osteoart hritis of the hips bilaterally. Impression: 1: Stable 1.5 cm right UPJ stone. Right internal ureteral stent in expected position. Reviewed, dictated and finalized at location A. INTEGRATION DEVELOPER Impression: 1: Stable 1.5 cm right UPJ stone. Right internal ureteral stent in expected pos ition.
--- NOTE | ~2022-02-12 | XR_ITS ---
XR chest 1V portable 02/12/2022 20:40 Indication: Transient alteration of awareness Procedure: AP portable chest Comparison: 01/24/2022 Findings: Heart size normal. Right lung clear. Left basilar atelectasis. No pleural effusion or pneum othorax. No acute osseous abnormality. No focal pneumonia. Osteopenia. Impression: 1: Left basilar atelectasis. Reviewed, dictated and finalized at location A. ONICS ENGINEERING TECHNICIAN Impression: 1: Left basilar atelectasis.
[2022-02-12 20:16] VITALS: BP 102/63; PULSE 62; RESP 16; TEMP 36.4; O2SAT 92
--- NOTE | 2022-02-12 20:28 | ECG_ITS ---
Measurements Intervals [place] Rate: 54 P: 81 [place]: 206 QRS: -48 QRSD: 128 T: 22 QT: 492 QTc: 468 Interpretive Statements SINUS BRADYCARDIA RIGHT BUNDLE BRANCH BLOCK LEFT ANTERIOR FASCICULAR BLOCK BASELINE ARTIFACT- I, II, III, AVR, AVL, AVF, V1-V6 ABNORMAL ECG COMPARED TO ECG 01/24/2022 12:01:32 SINUS BRADYCARDIA NOW PRESENT LEFT ANTERIOR FASCICULAR BLOCK NOW PRESENT Electronically Signed On 02-13-2022 7:58:17 S IRON WORKER by Mateo Miller D.O.
--- NOTE | 2022-02-12 20:34 | ED.AMS ---
HPI - Altered Mental Status General Chief Complaint: Urogenital-Female Stated Complaint: AMS, UTI SYMMPTOMS Time Seen by Provider: 02/12/22 20:15 History of Present Illness HPI narrative: HPI limited due to patient's altered mental status This is an 86-year-old female with past medical history of ureteral stone with UTI, stroke on January 29 with left-sided deficits dysarthria and cognitive deficit, brought in by EMS for altered mental status and pain with urination. Per EMS, the patient complained of dysuria. They also note, the patient's daughter wishes for the patient to be placed in a an alternative half-way. Patient's blood pressure was reported in the 100s over 60s with pulse in the 60s and afebrile. The patient complains of burning with urination. Related Data Home Medications Medication Instructions Recorded Confirmed docusate sodium 100 mg tablet 200 mg PO BID 01/09/22 01/23/22 (Stool Softener) Allergies Allergy/AdvReac Type Severity Reaction Status Date / Time iodixanol Allergy Unknown HIVES Verified 01/09/22 14:26 ceftriaxone [From Rocephin] Allergy Rash Verified 01/09/22 14:26 Penicillins Allergy HIVES Verified 01/09/22 14:26 Sulfa (Sulfonamide Allergy RASH Verified 01/09/22 14:26 Antibiotics) Contrast Media Allergy RASH Uncoded 01/09/22 14:26 Review of Systems Review of Systems: ROS limited due to patient's altered mental status GENITOURINARY: Dysuria MUSCULOSKELETAL: My back hurts PMFSH Past Medical History Medical History Acute hemorrhagic cystitis Altered mental status Essential (primary) hypertension Essential tremor History of DVT (deep vein thrombosis) History of multiple cerebrovascular accidents (CVAs) Hydronephrosis, right Kidney stones jail (current) use of anticoagulants Low back pain, unspecified Personal history of other venous thrombosis and embolism Presbycusis, bilateral Right renal stone Sepsis Unilateral primary osteoarthritis, right hip Unilateral primary osteoarthritis, right knee UTI (urinary tract infection) Weakness Surgical History Surgical History H/O bilateral cataract extraction H/O dilation and curettage H/O ureteroscopy History of removal of pigmented skin lesion Family History Family History Mother CHF (congestive heart failure), NYHA class I Cancer Social History Social History Social History: The patient lives with her . She has 4 children. Her has dementia and she takes care of him. She was a former smoker. The patient is retired. Her daughter Nasima is a durable power fish filleter for healthcare. She does not use any or marijuana. Code status full code Smoking packs per day: 1 Smoking cigarettes per day: 20.0 Years smoked: 10 Smoking pack-years: 10.00 Smoking status: Former smoker Tobacco type: cigarettes Second hand tobacco smoke exposure: No Smoking end date: 02/09/64 Alcohol intake: never Substance use: never Substance use type: does not use Lack of Transportation: No Lack of Food: Never True Current Housing: I Have Housing Concerned About Future Housing: No Difficulty Paying Gas/Electric Bills: No Difficulty Paying for Meds: No Currently Unemployed: No Education: High School Diploma/GED Difficulty w/ Childcare or Family Care: No Gender identity (if verbalized by the patient): Female Sexual Orientation (if Verbalized by the Patient): Straight or Heterosexual Spiritual care concerns: No Agree to blood products: Yes Exam Narrative: GENERAL: Well-developed, well-nourished, appears uncomfortable HEAD: Normocephalic, atraumatic. EYES: PERRLA and EOMI. ENT: Nares clear, no rhinorrhea or epistaxis. Mucous membranes dry. Orophar
[2022-02-12 21:29] LABS: Add Urine Microscopic? YES; Appearance Urine Cloudy (Clear); Basophils Absolute Auto 0.1 K/mm3 (0.0-0.1); Basophils Percent Auto 0.8 % (0.2-1.2); Bilirubin Urine 2+ (Negative); Blood Urine 3+ (Negative); Color Urine Brown (Yellow); Eosinophils Absolute Auto 0.3 K/mm3 (0-0.3); Eosinophils Percent Auto 3.1 % (0-4.4); Glucose Urine UA Negative (Negative); Hematocrit 52.1 % (37.0-47.0); Hemoglobin 16.7 g/dL (12.0-15.0); Immature Granulocyte Absolute 0.05 K/mm3 (0.00-0.031); Immature Granulocyte Percent A 0.6 % (0-0.5); Ketones Urine 1+ mg/dL (Negative); Leukocyte Esterase Ur 1+ LEU/UL (Negative); Lymphocytes Percent Auto 16.5 % (18.3-44.2); Mean Corpuscular HGB Conc 32.1 g/dl (32-36); Mean Corpuscular Hemoglobin 32.9 pg (26-34); Mean Corpuscular Volume 102.6 fl (80-100); Mean Platelet Volume 12.6 fl (7.4-10.4); Monocytes Percent Auto 12.1 % (2.6-8.5); Neutrophils Absolute Auto 5.7 K/mm3 (1.3-6.7); Neutrophils Percent Auto 66.9 % (45.5-73.1); Nitrate Urine Positive (Negative); Platelet Count Result 209 k/mm3 (150-375); Protein Urine 3+ mg/dL (Negative); Red Blood Count 5.08 M/mm3 (4.2-5.4); Red Cell Distribution Width 13.6 % (11.5-14.5); Specific Grav Ur >= 1.030 (1.001-1.035); White Blood Count 8.5 K/mm3 (4.5-10.0)
[2022-02-12 21:33] LABS: Mucus Urine Rare /lpf; RBC Urine >75 /hpf (0-2); WBC Clumps Urine Present /HPF; WBC Urine >75 /hpf
[2022-02-12] MEDS: SODIUM CHLORIDE 0.9% IV 2,000 ML 999 ML IV CONT (21:39)
[2022-02-12 21:41] LABS: Lactic Acid Reflex 1.7 mmol/L (0.7-2.0)
[2022-02-12 21:43] LABS: Alanine Aminotransferase 22 U/L (6-35); Albumin Level 3.5 g/dL (3.5-5.1); Alkaline Phosphatase 117 U/L (38-126); Anion Gap 9 mmol/L (8-16); Aspartate Amino Transferase 35 U/L (14-36); Bilirubin,Total 2.5 mg/dL (0.2-1.3); Blood Urea Nitrogen 46 mg/dL (7-17); Calcium 10.5 mg/dL (8.4-10.2); Carbon Dioxide 29 mmol/L (22-30); Chloride 103 mmol/L (98-107); Estimated Glomerular Filt Rate 43; Glucose 105 mg/dL (65-110); Potassium 3.8 mmol/L (3.4-5.0); Sodium 141 mmol/L (137-145)
[2022-02-12 22:18] LABS: Troponin I 0.038 ng/mL (0.000-0.034)
[2022-02-12] MEDS: ERTAPENEM 1 GM/NS 50 ML 1 GM/50 ML BAG IVPB (23:34)
[2022-02-13] VITALS (52 sets, daily range): BP systolic 90–150; BP diastolic 53–80; PULSE 49–63; RESP 13–27; TEMP 35.8; O2SAT 90–96
--- NOTE | 2022-02-13 | ECHO_ITS ---
Patient Info Name: Tracey Macedo Age: 86 years : 1935 Gender: Female Ht: 62 in Wt: 176 lbs BSA: 1.90 m2 HR: 65 bpm BP: 121 / 73 mmHg Technical Quality: Good Exam Date: 02/13/2022 10:54 AM Exam Location: [facility] Patient Status: Inpatient Admit Date: 02/13/2022 Staff Ordering Physician: Rosa Maria Ochoa MD County Adviser: Arti Samayoa RDCS Attending Provider: Luly Padilla DO Exam Type: CA echo limited w contrast Study Info Indications - ELEVATED TROPONIN - CHECK LV Limited two-dimensional transthoracic echocardiogram is performed with contrast. Contrast/Agitated Saline Contrast/Ag. Saline: Definity Amount: 2.00 ml Administered By: Arti Samayoa RDCS Existing IV Access: Yes IV Access Condition: patent with no signs of infiltration Summary 1. Limited echocardiogram to assess for wall motion abnormality. 2. Definity contrast administered improved wall motion interpretation. 3. Left ventricular chamber dimension is normal. 4. Left ventricular systolic function is normal, estimated at 65-70%. 5. There is mildly increased left ventricular wall thickness. Left Ventricle Limited echocardiogram to assess for wall motion abnormality. Definity contrast administered improved wall motion interpretation. The left ventricular diastolic function is indeterminate as it was not assessed. Left ventricular chamber dimension is normal. Left ventricular systolic function is normal, estimated at 65-70%. There is mildly increased left ventricular wall thickness. Ventricles Name Value Normal LV Dimensions 2D/MM IVS Diastolic Thickness (2D) 0.7 cm 0.6-1.0 IVS Diastole Thickness (MM) 0.8 cm 0.6-0.9 LVID Diastole (2D) 3.5 cm 3.8-5.2 LVID Diastole (MM) 5.4 cm 3.8-5.2 LVIW Diastolic Thickness (2D) 1.4 cm 0.6-0.9 LVIW Diastolic Thickness (MM) 0.8 cm 0.6-0.9 LVID Systole (2D) 2.2 cm 2.2-3.5 LVID Systole (MM) 3.5 cm 2.2-3.5 LV Mass (2D Cubed) 104.88 g 67.00-162.00 LV Mass Index (2D Cubed) 55 g/m2 43-95 Relative Wall Thickness (2D) 0.77 LV Mass (MM Cubed) 161.30 g 67.00-162.00 LV Mass Index (MM Cubed) 85 g/m2 43-95 Relative Wall Thickness (MM) 0.30 LV Fractional Shortening/Ejection Fraction 2D/MM LV Fractional Shortening (2D) 37 % 27-45 LV Fractional Shortening (MM) 36 % 27-45 LV EF (MM Teicholz) 65 % 54-74 LV EF (2D Teicholz) 68 % 54-74 LV Diastolic Volume (4C MOD) 73 ml LV EF (4C MOD) 55 % LV Diastolic Volume (2C MOD) 47 ml LV EF (2C MOD) 61 % LV Diastolic Volume (BP MOD) 59 ml 46-106 LV Diastolic Volume Index (BP MOD) 31 ml/m2 29-61 LV Systolic Volume (BP M
[2022-02-13 01:18] LABS: Influenza A QL RT-PCR Negative (Negative); Influenza B QL RT-PCR Negative (Negative); SARS-CoV-2 RNA PCR Negative
[2022-02-13 01:27] LABS: Troponin I 0.042 ng/mL (0.000-0.034)
[2022-02-13] MEDS: LACTATED RINGERS 1,000 ML 125 ML IV CONT (03:26)
[2022-02-13 04:38] LABS: Troponin I 0.039 ng/mL (0.000-0.034)
--- NOTE | 2022-02-13 08:11 | PM.IMHP ---
H&P: HPI History of Present Illness Date/Time: 02/13/22 08:11 Chief Complaint: AMS Narrative: [age] years old with history of DVT, kidney stone status post a stent in her right ureter, hypertension, per ED because of altered mental status. Patient is confused, history is taken from ER physician. Per ER report, patient was found to have altered mental status and pain with urination. EMS was called, patient was brought to ED for evaluation, in the ED patient was found have right kidney stone UVJ, UA shows pyuria and microscopic hematuria. Patient also found to have sinus bradycardia, marginal high troponin. EKG shows a sinus rhythm, sinus bradycardia, nonspecific ST T wave changes. Patient received Zosyn in the ED, here physician also consulted urologist. Patient received normal saline 2 L bolus, bronch culture urine culture pending. . 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 She has 4 children. Her has dementia and she takes care of him. She was a former smoker. The patient is retired. Her daughter Nasima is a durable power research attorney for healthcare. She does not use any or marijuana. Code status full code Smoking packs per day: 1 Smoking cigarettes per day: 20.0 Years smoked: 10 Smoking pack-years: 10.00 Smoking status: Former smoker Tobacco type: cigarettes Second hand tobacco smoke exposure: No Smoking end date: 02/09/64 Alcohol intake: never Substance use: never Substance use type: does not use Lack of Transportation: No Lack of Food: Never True Current Housing: I Have Housing Concerned About Future Housing: No Difficulty Paying Gas/Electric Bills: No Difficulty Paying for Meds: No Currently Unemployed: No Education: High School Diploma/GED Difficulty w/ Childcare or Family Care: No Gender identity (if verbalized by the patient): Female Sexual Orientation (if Verbalized by the Patient): Straight or Heterosexual Spiritual care concerns: No Agree to blood products: Yes Meds Home Medications and Allergies Home Medications Medication Instructions Recorded Confirmed Type meloxicam 15 mg tablet 15 mg PO DAILY #90 tabs 07/03/21 01/23/22 Rx propranolol 40 mg tablet 40 mg PO Q12H #180 tabs 07/03/21 01/23/22 Rx polyethylene glycol 3350 17 gram 17 g PO QAM PRN constipation #30 ea 12/17/21 01/23/22 Rx oral powder packet (Miralax) docusate sodium 100 mg tablet 200 mg PO BID 01/09/22 01/23/22 History (Stool Softener) apixaban 2.5 mg tablet (Eliquis) 2.5 mg BYMOUTH Q12HR #60 tabs 01/29/22 Rx aspirin 81 mg tablet,delayed 81 mg PO QAM #30 tabs 01/29/22 Rx release Allergies Allergy/AdvReac Type Severity Reaction Status Date / Time iodixanol Allergy Unknown ANGELA Verkalpana
[2022-02-13] MEDS: PERFLUTREN LIPID MICROSPHERES 1.5 ML VIAL DILUTED TO 10 ML TOTAL VOLUME IV PUSH (11:10)
[2022-02-13] MEDS: LACTATED RINGERS 1,000 ML 100 ML IV CONT ×2 (13:15→18:34)
--- NOTE | 2022-02-13 15:16 | WPDURCON ---
Assessment and Plan Assessment and plan (1) Altered mental status: Code(s): R41.82 - Altered mental status, unspecified Status: Acute Assessment and Plan: Likely related to UTI, continue IV antibiotics and tailor to culture results. Cultures are pending. (2) Dysuria: Code(s): R30.0 - Dysuria Status: Acute (3) Right ureteral stone: Code(s): N20.1 - Calculus of ureter Status: Acute Assessment and Plan: Will plan to treat with either ESWL or Ureteroscopy pending KUB results. If stone not visible on KUB, will need to do ureteroscopy when infection resolves. If KUB shows stone we could possibly schedule an ESWL (Right) next Wednesday while on culture appropriate antibiotics. (4) UTI (urinary tract infection): Code(s): N39.0 - Urinary tract infection, site not specified Status: Acute Assessment and Plan: No further evaluation at this time. Urology Consult Note HPI Date Seen: 02/13/22 Time Seen: 12:00 Requesting Physician: Luly Padilla DO Primary Care Provider: Rios Awan MD Consult Narrative Reason for consult: UTI/Ureteral Stone/Right Stent Narrative: Tracey Macedo is a 86 year old female who was brought by EMS to the ER today for altered mental status and dysuria. She is lying in bed and not communicative or alert to voice or stimulation. She had a Cystoscopy with left retrograde pyelogram, left ureteral stent placement on 01/23/[address] Mayers with the intent to f/u in 2-3 weeks after infection to pain for stone removal either by ESWL or ureteroscopy. CT shows persistent Right UPJ stone 12x5mm stone with right stent in expected position. Urine culture from 01/24/22 shows growth of E-Coli and UA at this time appears infected. She is afebrile, but afebrile, hypotensive, bradycardic and has a WBC of 8.5, creatinine is 1.20. 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) use of anticoagulants Low back pain, unspecified Personal history of other venous thrombosis and embolism Presbycusis, bilateral Right renal stone Sepsis Unilateral primary osteoarthritis, right hip Unilateral primary osteoarthritis, right knee UTI (urinary tract infection) Weakness Surgical History Surgical History H/O bilateral cataract extraction H/O dilation and curettage H/O ureteroscopy History of removal of pigmented skin lesion Family History Family History Mother CHF (congestive heart failure), NYHA class I Cancer Social History Social History Social History: The patient lives with her . She has 4 children. Her has dementia and she takes care of him. She was a former smoker. The patient is retired. Her daughter Nasima is a durable power ip attorney for healthcare. She does not use any or marijuana. Code status full code Smoking packs per day: 1 Smoking cigarettes per day: 20.0 Years smoked: 10 Smoking pack-years: 10.00 Smoking status: Former smoker Tobacco type: cigarettes Second hand tobacco smoke exposure: No Smoking end date: 02/09/64 Alcohol intake: never Substance use: never Substance use type: does not use Lack of Transportation: No Lack of Food: Never True Current Housing: I Have Housing Concerned About Future Housing: No Difficulty Paying Gas/Electric Bills: No Difficulty Paying for Meds: No Currently Unemployed: No E
--- NOTE | 2022-02-13 17:11 | PC.NURSE ---
heart healthy dinner tray ordered
--- NOTE | 2022-02-13 18:02 | ADMGEN ---
This patient, Tracey Macedo, was admitted to [address] [place] [address] Room 331-02. Patient/family oriented to hospital policies and general routines including ID bracelet, bed and alarms, visiting hours, pain management, procedures, bathroom and other care routines, personal items, smoking policy, room service/diet, and visiting hours. Information on how to activate the Rapid Response Team has been discussed. Patient/Family are encouraged to report perceived risks to care and to ask questions if they do not understand what they are told or what they should do.
[2022-02-13] MEDS: ERTAPENEM SODIUM 0.5 GM in SODIUM CHLORIDE 0.9% IV 50 ML IVPB (21:27)
[2022-02-14] VITALS (10 sets, daily range): BP systolic 94–140; BP diastolic 62–81; PULSE 52–75; RESP 14–18; TEMP 35.6–36.4; O2SAT 91–95
[2022-02-14] MEDS: LACTATED RINGERS 1,000 ML 100 ML IV CONT ×2 (06:28→15:55)
--- NOTE | 2022-02-14 15:07 | PM.IMPN ---
Progress Note: A&P Assessment and Plan (1) Altered mental status: Code(s): R41.82 - Altered mental status, unspecified Status: Acute Assessment and Plan: Acute encephalopathy Likely secondary to complicated UTI, dehydration, Am not sure if patient has dementia Neuro check Treat underlying disease CT of head without contrast:Subacute infarcts in the right temporal lobe, posterior right insula, and right parietal lobe, unchanged in distribution from 01/24/22 (2) Elevated troponin: Code(s): R77.8 - Other specified abnormalities of plasma proteins Status: Acute Assessment and Plan: Marginal high troponin EKG shows a sinus bradycardia, EKG shows sinus rhythm no specific disease changes Possible demand ischemia due to urinary infection Follow serial troponin, EKG. Start aspirin 325 mg once, 81 mg daily Order echocardiogram Telemetry monitoring (3) UTI (urinary tract infection): Code(s): N39.0 - Urinary tract infection, site not specified Status: Acute Assessment and Plan: Complicated UTI due to kidney stone Receive ertapenem iv daily in ED, and continue it Continue Zosyn Follow-up UCX (4) Right ureteral stone: Code(s): N20.1 - Calculus of ureter Status: Acute Assessment and Plan: Management per urologist (5) Essential (primary) hypertension: Code(s): I10 - Essential (primary) hypertension Status: Acute Assessment and Plan: Hold propranolol, blood pressure is soft and sinus bradycardia Plan History of DVT Continue [email or web address].. Subjective Date/time seen: 02/14/22 15:07 Saw examination today, patient is too lethargic, no apparent distress. Blood pressure is soft, receiving IV fluid, becomes unstable. Patient still has dark urine. Review of Systems Review of Systems: ROS unobtainable: Yes unobtainable due to mental status Exam Narrative: GENERAL: Minimal responsive to verbal commands, unable to answer questions, in no acute distress. Cachexia. - EYES: EOMI. Anicteric. - HENT: Moist mucous membranes. - LUNGS: Clear to auscultation bilaterally, no wheezing, rhonchi, or rales. - CARDIOVASCULAR: Regular rate and rhythm. No murmur. No JVD. - ABDOMEN: Soft,right lateral abdominal tender and non-distended. No palpable masses. - EXTREMITIES: No edema. Peripheral pulses 2+. Non-tender. - NEUROLOGIC: No focal neurological deficits. CN II-XII grossly intact. - PSYCHIATRIC: Drowsy and not oriented x 3. Appropriate mood and affect. - SKIN: No rashes or lesions. Warm. - LYMPH: No cervical lymphadenopathy. Objective Data Vital Signs Vital Signs: Vital Signs - 24 hr 02/13/22 15:30 02/13/22 15:31 02/13/22 15:45 Temperature Pulse Rate 58 L 57 L 51 L Respiratory Rate 17 20 14 Blood Pressure 122/53 L Pulse Oximetry Oxygen Delivery 02/13/22 15:46 02/13/22 16:00 02/13/22 20:00 Temperature 96.5 F L Pulse Rate 53 L 49 L 58 L Respiratory Rate 17 16 Blood Pressure 119/71 125/80 Pulse Oximetry 93 Oxygen Delivery 02/13/22 20:00 02/14/22 04:23 02/14/22 00:00 Temperature 96.6 F L Pulse Rate 56 L 52 L Respiratory Rate 14 Blood Pressure 117/66 Pulse Oximetry 94 Oxygen Delivery Room Air 02/14/22 04:25 02/14/22 10:00 02/14/22 08:00 Temperature 96.1 F L 96.3 F L Pulse Rate 56 L 60 54 L Respiratory Rate 18 16 Blood Pressure 116/65 94/62 L Pulse Oximetry 94 91 Oxygen Delivery 02/14/22 12:00 Temperature Pulse Rate 61 Respiratory Rate Blood Pressure Pulse Oximetry Oxygen Delivery Intake/Output Intake/Output: Intake & Output 02/11/22 02/12/22 02/13/22 02/14/22 23:59 23:59 23:59 23:59 Intake Total 100 4100 1050 Output Total 825 275 Balance 100 3275 775 Meds/Results Medications: Active Medications Generic Name Dose Route Start Last Admin Trade Name Freq PRN Reason Stop Dose Admin Lactated Ringer's 1,000 mls @ 100 mls/hr 02/13
[2022-02-14 16:28] LABS: Hematocrit 43.8 % (37.0-47.0); Hemoglobin 14.3 g/dL (12.0-15.0); Mean Corpuscular HGB Conc 32.6 g/dl (32-36); Mean Corpuscular Hemoglobin 33.3 pg (26-34); Mean Corpuscular Volume 101.9 fl (80-100); Mean Platelet Volume 11.9 fl (7.4-10.4); Platelet Count Result 144 k/mm3 (150-375); Red Cell Distribution Width 13.3 % (11.5-14.5); White Blood Count 5.4 K/mm3 (4.5-10.0)
[2022-02-14] MEDS: CENTRAL LINE FLUSH 10 ML IV PUSH ×2 (18:39→21:44)
[2022-02-14 21:04] LABS: Anion Gap 5 mmol/L (8-16); Blood Urea Nitrogen 21 mg/dL (7-17); Calcium 9.1 mg/dL (8.4-10.2); Carbon Dioxide 24 mmol/L (22-30); Chloride 110 mmol/L (98-107); Estimated CRCL calculation 52 ml/min; Estimated Glomerular Filt Rate > 60; Glucose 69 mg/dL (65-110); Potassium 3.6 mmol/L (3.4-5.0); Sodium 139 mmol/L (137-145)
[2022-02-14] MEDS: ERTAPENEM SODIUM 0.5 GM in SODIUM CHLORIDE 0.9% IV 50 ML IVPB (21:41)
[2022-02-15] VITALS (7 sets, daily range): BP systolic 113–151; BP diastolic 70–87; PULSE 60–82; RESP 14–24; TEMP 36–36.5; O2SAT 92–94
[2022-02-15] MEDS: CENTRAL LINE FLUSH 10 ML IV PUSH ×2 (05:37→14:00)
[2022-02-15 07:03] LABS: Hematocrit 39.5 % (37.0-47.0); Hemoglobin 13.1 g/dL (12.0-15.0); Mean Corpuscular HGB Conc 33.2 g/dl (32-36); Mean Corpuscular Hemoglobin 33.2 pg (26-34); Mean Corpuscular Volume 100.3 fl (80-100); Mean Platelet Volume 11.4 fl (7.4-10.4); Platelet Count Result 152 k/mm3 (150-375); Red Blood Count 3.94 M/mm3 (4.2-5.4); White Blood Count 5.2 K/mm3 (4.5-10.0)
[2022-02-15 07:10] LABS: Anion Gap 6 mmol/L (8-16); Blood Urea Nitrogen 17 mg/dL (7-17); Calcium 8.8 mg/dL (8.4-10.2); Carbon Dioxide 24 mmol/L (22-30); Chloride 109 mmol/L (98-107); Estimated CRCL calculation 53 ml/min; Estimated Glomerular Filt Rate > 60; Glucose 65 mg/dL (65-110); Potassium 3.3 mmol/L (3.4-5.0); Sodium 139 mmol/L (137-145)
[2022-02-15] MEDS: LACTATED RINGERS 1,000 ML 100 ML IV CONT ×2 (10:41→17:58)
--- NOTE | 2022-02-15 10:56 | PCSTNOTE ---
Bedside swallow study attempted, patient is minimally responsive and refusing trials of food or liquid at this time. Will attempt tomorrow. Spoke with nursing and daughter. Thank you for the referral of this patient.
--- NOTE | 2022-02-15 14:38 | PM.IMPN ---
Progress Note: A&P Assessment and Plan (1) Altered mental status: Code(s): R41.82 - Altered mental status, unspecified Status: Acute Assessment and Plan: Acute encephalopathy Likely secondary to complicated UTI, dehydration, Am not sure if patient has dementia Neuro check Treat underlying disease CT of head without contrast:Subacute infarcts in the right temporal lobe, posterior right insula, and right parietal lobe, unchanged in distribution from 01/24/22 (2) Elevated troponin: Code(s): R77.8 - Other specified abnormalities of plasma proteins Status: Acute Assessment and Plan: Marginal high troponin EKG shows a sinus bradycardia, EKG shows sinus rhythm no specific disease changes Possible demand ischemia due to urinary infection Follow serial troponin, EKG. Start aspirin 325 mg once, 81 mg daily Order echocardiogram Telemetry monitoring (3) UTI (urinary tract infection): Code(s): N39.0 - Urinary tract infection, site not specified Status: Acute Assessment and Plan: Complicated UTI due to kidney stone Receive ertapenem iv daily in ED, and continue it Continue ertapenem Follow-up UCX (4) Right ureteral stone: Code(s): N20.1 - Calculus of ureter Status: Acute Assessment and Plan: Management per urologist (5) Essential (primary) hypertension: Code(s): I10 - Essential (primary) hypertension Status: Acute Assessment and Plan: Hold propranolol, blood pressure is soft and sinus bradycardia (6) Dysphagia: Code(s): R13.10 - Dysphagia, unspecified Status: Acute Assessment and Plan: Patient has a history of stroke, has dysphagia intermittently. Pressed speech evaluations, patient has dysphagia and risk of aspiration Patient is NPO. After thorough discussion with the patient's family about the goals of care at patient bedside, patient's family wishes full code with the patient. And they agree NG tube feeding. Request speech therapist to evaluate patient again, will place NG tube for tube feeding if patient fails a swallow test again Plan History of DVT Continue [email or web address].. Subjective Date/time seen: 02/15/22 14:38 Saw his outpatient, patient is minimally responsive. She does not have overt distress. No new issue even overnight Patient does not have complaints, basically nonverbal Review of Systems Review of Systems: ROS unobtainable: Yes unobtainable due to mental status Exam Narrative: GENERAL: Minimal responsive to verbal commands, unable to answer questions, in no acute distress. Cachexia. - EYES: EOMI. Anicteric. - HENT: Moist mucous membranes. - LUNGS: Clear to auscultation bilaterally, no wheezing, rhonchi, or rales. - CARDIOVASCULAR: Regular rate and rhythm. No murmur. No JVD. - ABDOMEN: Soft,right lateral abdominal tender and non-distended. No palpable masses. - EXTREMITIES: No edema. Peripheral pulses 2+. Non-tender. - NEUROLOGIC: No focal neurological deficits. CN II-XII grossly intact. - PSYCHIATRIC: Drowsy and not oriented x 3. Appropriate mood and affect. - SKIN: No rashes or lesions. Warm. - LYMPH: No cervical lymphadenopathy. Objective Data Vital Signs Vital Signs: Vital Signs - 24 hr 02/14/22 16:00 02/14/22 18:00 02/14/22 20:00 Temperature 97.4 F L 97.6 F Pulse Rate 59 L 71 71 Respiratory Rate 14 14 Blood Pressure 140/76 138/81 Pulse Oximetry 95 93 Oxygen Delivery 02/15/22 00:00 02/14/22 20:00 02/14/22 20:00 Temperature 96.8 F L Pulse Rate 73 75 Respiratory Rate 14 Blood Pressure 127/79 Pulse Oximetry 93 Oxygen Delivery Room Air 02/15/22 00:00 02/15/22 04:00 02/15/22 04:00 Temperature 97.6 F Pulse Rate 75 60 73 Respiratory Rate 14 Blood Pressure 131/87 Pulse Oximetry 94 Oxygen Delivery 02/15/22 09:15 Temperature 97.7 F Pulse Rate 75 Respiratory Rate 24 H Blood Pressure 113/70 Pulse Oximetry 93 Oxygen Del
[2022-02-15] MEDS: ERTAPENEM SODIUM 0.5 GM in SODIUM CHLORIDE 0.9% IV 50 ML IVPB (22:25)
[2022-02-16] VITALS: PULSE 77
[2022-02-16 04:00] VITALS: BP 122/70; PULSE 77; PULSE 78; RESP 16; TEMP 36.3; O2SAT 91
[2022-02-16] MEDS: CENTRAL LINE FLUSH 10 ML IV PUSH ×3 (06:00→22:00)
[2022-02-16] MEDS: LACTATED RINGERS 1,000 ML 100 ML IV CONT (06:23)
[2022-02-16 08:00] VITALS: BP 134/80; PULSE 84; RESP 18; TEMP 36.5; O2SAT 90
[2022-02-16 09:10] VITALS: BMI 11.0
[2022-02-16 09:15] VITALS: PULSE 70
[2022-02-16 12:00] VITALS: BP 155/92; PULSE 67; PULSE 78; RESP 20; TEMP 36.4; O2SAT 92
[2022-02-16 13:18] VITALS: BMI 30.6
--- NOTE | 2022-02-16 13:20 | PM.IMPN ---
Progress Note: A&P Assessment and Plan (1) Altered mental status: Code(s): R41.82 - Altered mental status, unspecified Status: Acute Assessment and Plan: Multifactorial, check TSH, B12, folate, neurology consult (2) Elevated troponin: Code(s): R77.8 - Other specified abnormalities of plasma proteins Status: Acute Assessment and Plan: stable, monitor telemetry likely demand ischemia from infection (3) UTI (urinary tract infection): Code(s): N39.0 - Urinary tract infection, site not specified Status: Acute Assessment and Plan: discontinue antibiotics, culture came back negative for infection (4) Right ureteral stone: Code(s): N20.1 - Calculus of ureter Status: Acute Assessment and Plan: Management per urologist (5) Essential (primary) hypertension: Code(s): I10 - Essential (primary) hypertension Status: Acute Assessment and Plan: Hold propranolol, blood pressure is soft and sinus bradycardia (6) Dysphagia: Code(s): R13.10 - Dysphagia, unspecified Status: Acute Assessment and Plan: Patient has a history of stroke, has dysphagia intermittently. Pressed speech evaluations, patient has dysphagia and risk of aspiration Patient is NPO. After thorough discussion with the patient's family about the goals of care at patient bedside, patient's family wishes full code with the patient. And they agree NG tube feeding. Request speech therapist to evaluate patient again, will place NG tube for tube feeding if patient fails a swallow test again Plan DVT prophylaxis with Eliquis GI prophylaxis with PPI Code status DNR Subjective Date/time seen: 02/16/22 13:20 Interval history: extremely somnolent. No overnight events noted. No fevers or chills. Review of Systems Review of Systems: ROS unobtainable: Yes unobtainable due to mental status Exam Narrative: General: somnolent, unable to assess HEENT: Atraumatic, normocephalic, mucous membranes moist CV: Regular rate and rhythm, S1, S2 Lungs: Clear to auscultation bilaterally, no rales or crackles noted, no wheezes, good air entry Abdomen: Soft, nontender, nondistended Extremities: Normal to inspection Skin: No rashes noted, no lesions or wounds seen Psych: unable to assess Objective Data Vital Signs Vital Signs: Vital Signs - 24 hr 02/15/22 16:00 02/15/22 16:00 02/15/22 20:00 Temperature 97.3 F L Pulse Rate 73 78 Respiratory Rate 14 Blood Pressure 146/82 H Pulse Oximetry 93 Oxygen Delivery Room Air 02/15/22 20:00 02/15/22 20:00 02/16/22 00:00 Temperature 97.4 F L Pulse Rate 77 74 77 Respiratory Rate 18 Blood Pressure 151/81 H Pulse Oximetry 92 Oxygen Delivery 02/16/22 04:00 02/16/22 04:00 02/16/22 08:00 Temperature 97.3 F L 97.7 F Pulse Rate 77 78 84 Respiratory Rate 16 18 Blood Pressure 122/70 134/80 Pulse Oximetry 91 90 Oxygen Delivery 02/16/22 08:00 02/16/22 08:41 02/16/22 09:10 Temperature 97.7 F Pulse Rate 84 Respiratory Rate 18 Blood Pressure 134/80 Pulse Oximetry 90 Oxygen Delivery Room Air Room Air 02/16/22 09:15 02/16/22 12:00 02/16/22 12:00 Temperature 97.6 F Pulse Rate 70 78 67 Respiratory Rate 20 Blood Pressure 155/92 H Pulse Oximetry 92 Oxygen Delivery Intake/Output Intake/Output: Intake & Output 02/13/22 02/14/22 02/15/22 02/16/22 23:59 23:59 23:59 23:59 Intake Total 4100 2105 2600 1550 Output Total 825 625 975 825 Balance 3275 1480 1625 725 Meds/Results Medications: Active Medications Generic Name Dose Route Start Last Admin Trade Name Freq PRN Reason Stop Dose Admin Lactated Ringer's 1,000 mls @ 100 mls/hr 02/13/22 02:30 02/16/22 06:23 Lr - Lactated Ringers Iv IV CONT 100 mls/hr .Q10H ANKUR Administration Ertapenem 0.5 gm/ Sodium 50 mls @ 100 mls/hr 02/13/22 21:00 02/15/22 22:58 Chloride
[2022-02-16 16:00] VITALS: BP 146/84; PULSE 76; RESP 16; TEMP 36.6; O2SAT 95
--- NOTE | 2022-02-16 16:26 | PCSTNOTE ---
Please refer to the Bedside Swallow Evaluation in the EMR. Please note, silent aspiration cannot be ruled out at bedside.
[2022-02-16 19:50] LABS: Folic Acid 3.7 ng/mL (2.76->20)
[2022-02-17] MEDS: CENTRAL LINE FLUSH 10 ML IV PUSH ×3 (04:58→21:15)
--- NOTE | 2022-02-17 14:20 | PM.IMPN ---
Progress Note: A&P Assessment and Plan (1) Altered mental status: Code(s): R41.82 - Altered mental status, unspecified Status: Acute Assessment and Plan: Multifactorial, check TSH, B12, folate, neurology consult (2) Elevated troponin: Code(s): R77.8 - Other specified abnormalities of plasma proteins Status: Acute Assessment and Plan: stable, monitor telemetry likely demand ischemia from infection (3) UTI (urinary tract infection): Code(s): N39.0 - Urinary tract infection, site not specified Status: Acute Assessment and Plan: discontinue antibiotics, culture came back negative for infection (4) Right ureteral stone: Code(s): N20.1 - Calculus of ureter Status: Acute Assessment and Plan: Management per urologist (5) Essential (primary) hypertension: Code(s): I10 - Essential (primary) hypertension Status: Acute Assessment and Plan: Hold propranolol, blood pressure is soft and sinus bradycardia (6) Dysphagia: Code(s): R13.10 - Dysphagia, unspecified Status: Acute Assessment and Plan: Patient has a history of stroke, has dysphagia intermittently. Pressed speech evaluations, patient has dysphagia and risk of aspiration Patient is NPO. Family considering hospice slow decline pt is DNR Subjective Date/time seen: 02/17/22 14:20 Interval history: [age] years old with history of DVT, kidney stone status post a stent in her right ureter, hypertension, per ED because of altered mental status.? Patient is confused, history is taken from ER physician.? Per ER report, patient was found to have altered mental status and pain with urination.??Pt is NPO due to swallowing issues Family considering hospice on her Review of Systems Review of Systems: Pt is tired and somnolent unable to give any history ROS unobtainable: Yes unobtainable due to mental status Exam Narrative: General: somnolent, unable to assess HEENT: Atraumatic, normocephalic, mucous membranes moist CV: Regular rate and rhythm, S1, S2 Lungs: Clear to auscultation bilaterally, no rales or crackles noted, no wheezes, good air entry Abdomen: Soft, nontender, nondistended Extremities: Normal to inspection Skin: No rashes noted, no lesions or wounds seen Psych: unable to assess Objective Data Vital Signs Vital Signs: Vital Signs - 24 hr 02/16/22 16:00 02/16/22 20:00 Temperature 36.6 C Pulse Rate 76 Respiratory Rate 16 Blood Pressure 146/84 H Pulse Oximetry 95 Oxygen Delivery Room Air Intake/Output Intake/Output: Intake & Output 02/14/22 02/15/22 02/16/22 02/17/22 23:59 23:59 23:59 23:59 Intake Total 2105 2600 1550 0 Output Total 716 140 3930 700 Balance 1480 1625 175 -700 Meds/Results Medications: Active Medications Generic Name Dose Route Start Last Admin Trade Name Freq PRN Reason Stop Dose Admin Acetaminophen 1,000 mg in 100 mls @ 400 mls/hr 02/14/22 18:15 02/15/22 11:49 Ofirmev 1,000 Mg Ivpb IVPB 02/18/22 17:59 Infused Q6HR PRN Infusion Pain Sodium Chloride 10 ml 02/14/22 14:00 02/17/22 12:59 Central Line Flush IV PUSH 10 ml Q8HR ANKUR Administration Sodium Chloride 10 ml 02/14/22 10:32 Central Line Flush IV PUSH PRN PRN with TPN bag changes Sodium Chloride 20 ml 02/14/22 10:32 Central Line Flush IV PUSH PRN PRN after blood draws Radiology Results: ITS Impressions Abdomen/Pelvis CT 02/12/22 20:49 IMPRESSION: 1. Right UPJ stone measuring 12 x 5 mm. Right internal ureteral stent in expected position. Head CT 02/13/22 09:24 IMPRESSION: 1. Subacute infarcts in the right temporal lobe, posterior right insula, and right parietal lobe, unchanged in distribution from 01/24/22. 2. Multiple old infarcts in the brain. Abdomen X-Ray 02/13/22 14:56 Impression: 1: Stable 1.5 cm right UPJ stone. Right internal ure
[2022-02-17 14:43] VITALS: BP 112/78; PULSE 90; RESP 20; TEMP 36.5; O2SAT 93
[2022-02-17 20:00] VITALS: BP 131/81; PULSE 90; RESP 18; TEMP 35.9; O2SAT 87
[2022-02-18] MEDS: CENTRAL LINE FLUSH 10 ML IV PUSH (05:21)
[2022-02-18 07:00] VITALS: PULSE 98; RESP 18; O2SAT 86
[2022-02-18 08:00] VITALS: O2SAT 87
--- NOTE | 2022-02-18 12:09 | PM.DS ---
DS: Admitting Diagnosis Discharge Date 02/18/22 Admitting Diagnosis ams DS: Discharge Diagnosis Discharge Diagnosis (1) Altered mental status: Code(s): R41.82 - Altered mental status, unspecified Status: Acute Assessment and Plan: Multifactorial, check TSH, B12, folate, neurology consult (2) Elevated troponin: Code(s): R77.8 - Other specified abnormalities of plasma proteins Status: Acute Assessment and Plan: stable, monitor telemetry likely demand ischemia from infection (3) UTI (urinary tract infection): Code(s): N39.0 - Urinary tract infection, site not specified Status: Acute Assessment and Plan: discontinue antibiotics, culture came back negative for infection (4) Right ureteral stone: Code(s): N20.1 - Calculus of ureter Status: Acute Assessment and Plan: Management per urologist (5) Essential (primary) hypertension: Code(s): I10 - Essential (primary) hypertension Status: Acute Assessment and Plan: Hold propranolol, blood pressure is soft and sinus bradycardia (6) Dysphagia: Code(s): R13.10 - Dysphagia, unspecified Status: Acute Assessment and Plan: Patient has a history of stroke, has dysphagia intermittently. Pressed speech evaluations, patient has dysphagia and risk of aspiration Patient is NPO. Family considering hospice slow decline pt is DNR DS: Summary Hospital Course Hospital Course: 86-year-old female with past medical history significant for DVT, ureteral stent, hypertension is presenting with altered mental status. She was found to have a hematuria as well as a right kidney stone. She was noted to be in bradycardia. She was started on Zosyn this was continued. Urology was consulted and recommended outpatient follow-up with possible lithotripsy. Urine culture came back negative for possible infection. Mentation was thought to be secondary to prior CVA. Patient was unable to pass swallow study and tube feedings were recommended. After extensive discussion with family, patient and family opted for hospice care and pleasure feeding. Time Spent with Patient Time attestation: Total time spent providing and/or coordinating discharge services: Exam Narrative: General: somnolent, unable to assess HEENT: Atraumatic, normocephalic, mucous membranes moist CV: Regular rate and rhythm, S1, S2 Lungs: Clear to auscultation bilaterally, no rales or crackles noted, no wheezes, good air entry Abdomen: Soft, nontender, nondistended Extremities: Normal to inspection Skin: No rashes noted, no lesions or wounds seen Psych: unable to assess DS: Data Data Completed and Pending Labs on day of discharge: Preliminary micro results at discharge 02/12/22 01:04 Blood Culture - Preliminary Blood Discharge Plan Discharge Attending physician on discharge: Ani Trejo Discharging Clinician: Ani Trejo Patient Disposition: Hospice - Home Activity: as tolerated Diet: as tolerated Stand Alone Forms: General Discharge Information Discharge Medications: Discontinued meloxicam 15 mg tablet 15 mg PO DAILY Qty: 90 3RF propranolol 40 mg tablet 40 mg PO Q12H Qty: 180 3RF docusate sodium [Stool Softener] 100 mg Tablet 200 mg PO BID polyethylene glycol 3350 [Miralax] 17 gram Powder In Packet 17 g PO QAM PRN (Reason: constipation) Qty: 30 0RF Eliquis 2.5 mg Tablet 2.5 mg BYMOUTH Q12HR Qty: 60 0RF aspirin 81 mg Tablet,Delayed Release (Dr/Ec) 81 mg PO QAM Qty: 30 0RF Date of admission: 02/14/22 16:29 Primary Care Provider: Rios Awan Admitting Provider: Luly Padilla Attending physician on admission: Luly Padilla Condition: Serious
== END 2022-02-18 13:45 | disposition hospice, home (50) | DRG 57 ==
LOC: ANHED 20:56 → ANHIMU 02-13 04:39 → ANH3MEDSUR 02-13 17:59
PROVIDERS: Hospitalist; Admitting Provider Internal Medicine; Emergency Provider Preventive Medicine Aerospace Medicine; PCP Family Medicine Adolescent Medicine; Visit Provider Student in an Organized Health Care Education/Training Program
DX: I69.318 Other symptoms and signs involving cognitive functions following cerebral infarction (principal); N20.1 Calculus of ureter; I24.8 Other forms of acute ischemic heart disease; R31.9 Hematuria, unspecified; R30.0 Dysuria; E86.0 Dehydration; R00.1 Bradycardia, unspecified; Z20.822 Contact with and (suspected) exposure to COVID-19; I10 Essential (primary) hypertension; M17.11 Unilateral primary osteoarthritis, right knee; M16.11 Unilateral primary osteoarthritis, right hip; R13.10 Dysphagia, unspecified; I69.391 Dysphagia following cerebral infarction; Z66 Do not resuscitate; I69.322 Dysarthria following cerebral infarction; Z86.718 Personal history of other venous thrombosis and embolism; Z98.42 Cataract extraction status, left eye; Z98.41 Cataract extraction status, right eye; Z87.891 Personal history of nicotine dependence
CPT/HCPCS: 36415; 70450; 71045; 74018; 74176; 80048; 80053; 81001; 82607; 82746; 83605; 84443; 84484; 85025; 85027; 87040; 87086; 87636; 92610; 93005; 93308; 96361; 96365; 96367; 96375; 97161; 97165; 99285; C8924; G0378; J0131; J1335; J7030; J7120; Q9957